=== PATIENT | female | born 1965 | race Caucasian/White ===

== ENCOUNTER 2019-11-15 09:12 | Outpatient (CLI) | payer MEDICARE, MEDICAID, SELFPAY | END 2019-11-15 09:13 | disposition home or self-care (01) | PROVIDERS: PCP Family Medicine; Visit Provider Internal Medicine Pulmonary Disease | DX: J45.991 Cough variant asthma (principal); J44.9 Chronic obstructive pulmonary disease, unspecified | CPT/HCPCS: 94060; 94726; 94729; 95012 ==

== ENCOUNTER 2019-12-06 13:47 | Outpatient (CLI) | payer MEDICARE, MEDICAID, SELFPAY ==
--- NOTE | ~2019-12-06 | XR_ITS ---
EXAMINATION: XR chest 2V DATE: 12/06/2019 14:09 INDICATION: Asthma with chronic restrictive pulmonary disease. TECHNIQUE: Frontal and lateral views of the chest were obtained. COMPARISON: Chest 2 views 09/07/2019, chest CT 08/13/2019 FINDINGS: Lung volumes are increased. There is a chronic diffuse interstitial pattern in the lungs. N o pleural effusion or pneumothorax. Cardiomegaly is noted. The central pulmonary arteries are enlarge d, consistent with pulmonary arterial hypertension. IMPRESSION: 1. Hyperexpanded lungs with chronic diffuse interstitial pattern, likely chronic lung disease. 2. Cardiomegaly. Reviewed, dictated and finalized at location A. OVEMENT AUDITOR IMPRESSION: 1. Hyperexpanded lungs with chronic diffuse interstitial pattern, likely chroni c lung disease. 2. Cardiomegaly.
[2019-12-06 14:13] LABS: Hemoglobin A1C 6.9 % (<5.7)
== END 2019-12-06 13:48 | disposition home or self-care (01) ==
LOC: CHSLAB 13:51
PROVIDERS: PCP Family Medicine; Visit Provider Family Medicine
DX: J44.9 Chronic obstructive pulmonary disease, unspecified (principal); E11.610 Type 2 diabetes mellitus with diabetic neuropathic arthropathy
CPT/HCPCS: 36415; 71046; 83036

== ENCOUNTER 2020-07-03 09:09 | Outpatient (CLI) | payer MEDICARE, MEDICAID, SELFPAY ==
--- NOTE | ~2020-07-03 | CT_ITS ---
EXAMINATION: CT chest wo con DATE: 07/03/2020 09:51 INDICATION: Pulmonary nodules and shortness of breath. TECHNIQUE: Computed tomography (CT) of the chest was performed without intravenous contrast. The dose -length product was 101.37 mGy-cm. Automated exposure control and iterative reconstruction technique were employed. COMPARISON: CT dated 08/13/2019 FINDINGS: No significant pleural or pericardial effusion. Cardiomegaly. There is atherosclerosis of t he aorta and coronary arteries. Mild mediastinal lymphadenopathy, likely reactive. Enlarged pulmonary arteries consistent with pulmonary arterial hypertension. There are patchy groundglass opacities thr oughout both lungs with mosaic configuration there are a few small 2 mm or smaller subpleural nodules . There is emphysema. IMPRESSION: 1. Chronic scattered groundglass opacities with mosaic attenuation pattern, considerations include sm all airways disease and/or chronic interstitial lung disease superimposed on emphysema. 2: Pulmonary arterial hypertension. 3: Small pulmonary nodules measuring 2 mm or less, likely benign. Reviewed, dictated and finalized at location A. IMPRESSION: 1. Chronic scattered groundglass opacities with mosaic attenuation pattern, con siderations include small airways disease and/or chronic interstitial lung dise ase superimposed on emphysema. 2: Pulmonary arterial hypertension. 3: Small pulmonary nodules measuring 2 mm or less, likely benign.
== END 2020-07-03 09:10 | disposition home or self-care (01) ==
LOC: CHSIMG 09:11
PROVIDERS: PCP Family Medicine; Visit Provider Internal Medicine Pulmonary Disease
DX: R91.8 Other nonspecific abnormal finding of lung field (principal)
CPT/HCPCS: 71250

== ENCOUNTER 2020-09-04 20:43 | Emergency (ER) | payer MEDICARE, MEDICAID, SELFPAY ==
--- NOTE | 2020-09-04 20:46 | ED.HEATRA ---
HPI - Head Injury General Chief complaint: Wound/Laceration Stated complaint: busted face Time Seen by Provider: 09/04/20 20:52 Source: patient Mode of arrival: ambulatory Limitations: no limitations History of Present Illness HPI Narrative: patient was walking up the stairs when she fell forward striking her lip on the stair. She has no other injuries. Her dentures broke. She complains only of pain in her lip. There is no loss of consciousness. Complaint: fall Onset (ago): hour(s) (1) Mechanism of Injury: fall Place: home Loss of Consciousness: no Location of injury: face Severity: mild Quality: dull Radiation: none Other Injuries: none Associated symptoms: denies other symptoms Related Data Home Medications Medication Instructions Recorded Confirmed albuterol sulfate 90 mcg/actuation 1 puff INHALATION Q4H PRN 09/23/19 06/14/20 aerosol inhaler aspirin 81 mg tablet,delayed 81 mg PO DAILY 09/23/19 06/14/20 release blood sugar diagnostic #10 each 09/23/19 06/14/20 blood sugar diagnostic #10 each 09/23/19 06/14/20 ipratropium bromide 0.02 % 2.5 ml INHALATION QID PRN 09/23/19 06/14/20 solution for inhalation tiotropium bromide 18 mcg capsule 1 cap INHALATION DAILY 09/23/19 06/14/20 with inhalation device Allergies Allergy/AdvReac Type Severity Reaction Status Date / Time No Known Allergies Allergy Verified 09/04/20 21:19 Review of Systems Review of Systems: All systems reviewed & are unremarkable except as noted in HPI and below PMFSH Past Medical History Medical History (Updated 09/04/20 @ 21:19 by Duke Piedra MD) Cigarette nicotine dependence COPD (chronic obstructive pulmonary disease) Eczema Hypertension associated with type 2 diabetes mellitus Nicotine dependence with current use Obesity Surgical History Surgical History History of tubal ligation 1986 Family History Family History Mother Breast cancer Father Diabetes mellitus Emphysema, unspecified Other Cerebrovascular accident Heart disease Social History Social History Smoking packs per day: 1 Smoking cigarettes per day: 20.0 Years smoked: 45 Smoking pack-years: 45.00 Smoking status: Current every day smoker Tobacco type: cigarettes Alcohol intake: never Substance use: never Substance use type: does not use Additional living arrangements comments: . 4 Children. 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 Gender identity (if verbalized by the patient): Female Exam Const: General: healthy appearing, no acute distress and alert Nutritional Appearance: well nourished Orientation/consciousness: patient oriented x3 HENMT: Mouth: Yes moist mucous membranes and Yes lip abnormal upper swelling and laceration ( On the inner aspect centrally.) Eyes: Conjunctivae: conjunctivae normal Pupils: Equal, round and reactive pupils present EOM: EOMs intact bilaterally Neck: Neck: normal visual inspection Resp: Effort & Inspection: normal respiratory effort Auscultation: rhonchi ( Scattered) throughout Cardio: Rate: regular rate Rhythm: regular rhythm Heart sounds: Murmur heart sound present (01/16) continuous GI: GI Palp: Yes Soft to palpation and No Tenderness to palpation present (GI) Auscultation: normal bowel sounds Back/Spine/Pelvis: Cervical Spine: cervical ROM normal Thoracic/Lumbar Spine: thoraco-lumbar ROM normal Neuro: General: patient oriented x3, moves all extremities and no focal motor deficits Cranial nerves: Yes CN's II-XII intact bilaterally Speech: normal speech Gait exam (Neuro): Normal gait present Extrem: General: normal to inspection and no clubbing, cyanosis or edema Psych: Appearance: grossly normal and well kempt Mental Status: mental status gr
[2020-09-04 20:58] VITALS: BP 118/68; PULSE 65; RESP 20; TEMP 36.8; O2SAT 95
[2020-09-04] MEDS: AMOXICILLIN 500 MG CAPSULE PO (21:27)
[2020-09-04 21:30] VITALS: PULSE 68; RESP 20; O2SAT 95
== END 2020-09-04 21:36 | disposition home or self-care (01) ==
PROVIDERS: Emergency Provider Emergency Medicine; PCP Family Medicine
DX: S01.511A Laceration without foreign body of lip, initial encounter (principal); W10.9XXA Fall (on) (from) unspecified stairs and steps, initial encounter; J44.9 Chronic obstructive pulmonary disease, unspecified; I10 Essential (primary) hypertension; E11.9 Type 2 diabetes mellitus without complications; F17.210 Nicotine dependence, cigarettes, uncomplicated; E66.9 Obesity, unspecified
CPT/HCPCS: 99283; A9270

== ENCOUNTER 2020-09-20 08:31 | Outpatient (CLI) | payer MEDICARE, SELFPAY ==
[2020-09-20 08:50] LABS: Hemoglobin A1C 6.5 % (<5.7)
== END 2020-09-20 08:32 | disposition home or self-care (01) ==
LOC: CHSLAB 08:35
PROVIDERS: PCP Family Medicine; Visit Provider Family Medicine
DX: E11.59 Type 2 diabetes mellitus with other circulatory complications (principal); I10 Essential (primary) hypertension
CPT/HCPCS: 36415; 83036

== ENCOUNTER 2021-03-27 13:51 | Outpatient (CLI) | payer MEDICARE, SELFPAY ==
[2021-03-27 14:04] LABS: Hemoglobin 14.3 g/dL (12.0-15.0); Mean Corpuscular HGB Conc 31.1 g/dL (32.0-36.0); Mean Corpuscular Hemoglobin 25.9 pg (27.0-31.0); Mean Corpuscular Volume 83.2 fL (78.0-102.0); Mean Platelet Volume 10.5 fl (9.2-11.8); Platelet Count Result 261 K/mm3 (150-420); Red Blood Count 5.53 M/mm3 (4.20-5.40); Red Cell Distribution Width 16.8 % (11.6-14.4); White Blood Count 11.3 K/mm3 (4.8-10.8)
[2021-03-27 14:15] LABS: Hemoglobin A1C 6.4 % (<5.7)
[2021-03-27 14:19] LABS: Creatinine Urine 171.22 mg/dL (40-278)
[2021-03-27 14:27] LABS: MALB Creatinine Ratio 233.6 mg/g (0-30); Microalbumin Urine Random > 400.0 mg/L
[2021-03-27 15:15] LABS: Alanine Aminotransferase 24 U/L (14-59); Albumin Level 3.6 g/dL (3.4-5.0); Alkaline Phosphatase 105 U/L (46-116); Anion Gap 8 mmol/L (8-16); Aspartate Amino Transferase 12 U/L (15-37); Bilirubin,Total 0.5 mg/dL (0.00-1.00); Blood Urea Nitrogen 21 mg/dL (7-18); Calcium 9.4 mg/dL (8.5-10.1); Carbon Dioxide 33 mmol/L (21-32); Chloride 103 mmol/L (98-108); Estimated Glomerular Filt Rate 58; Glucose 124 mg/dL (70-99); Osmolality Calculated 302 mOsm/kg (285-295); Potassium 3.6 mmol/L (3.5-5.1); Sodium 144 mmol/L (136-145); Total Protein 7.1 g/dL (6.4-8.2)
== END 2021-03-27 13:52 | disposition home or self-care (01) ==
LOC: CHSLAB 13:53
PROVIDERS: PCP Family Medicine; Visit Provider Family Medicine
DX: E11.9 Type 2 diabetes mellitus without complications (principal); I10 Essential (primary) hypertension
CPT/HCPCS: 36415; 80053; 82043; 83036; 85027

== ENCOUNTER 2021-07-26 09:12 | Outpatient (CLI) | payer MEDICARE, MEDICAID, SELFPAY ==
--- NOTE | 2021-07-26 09:24 | ECHO_ITS ---
Patient Info Name: Patty Orozco Age: 56 years : 1965 Gender: Female Ht: 62 in Wt: 152 lbs BSA: 1.76 m2 HR: 65 bpm BP: 133 / 73 mmHg Exam Date: 07/26/2021 10:13 AM Exam Location: [facility] Patient Status: Outpatient Admit Date: 07/26/2021 Staff Ordering Physician: Bj Mims MD Filemaker Developer: Senthil Nobles RDCS, RT Attending Provider: Bj Mims MD Referring Physician: Prasanna MEJIA; Exam Type: CA echo doppler color flow Study Info Indications R06.00 - Dyspnea, unspecified Complete two-dimensional, color flow and Doppler transthoracic echocardiogram is performed. Strain analysis performed. Summary 1. Complete two-dimensional, color flow and Doppler transthoracic echocardiogram is performed. 2. Left ventricular chamber dimension is normal. 3. Left ventricular systolic function is normal, estimated at 60-65%. 4. There is mildly increased left ventricular wall thickness. 5. D shape interventricular septum in both systole and diastole suggests both pressure and volume RV overload. 6. The left ventricular diastolic function is grade I diastolic dysfunction. 7. E/e' 15 is elevated. 8. Global longitudinal strain is normal at -19.6%. 9. Right ventricular systolic function is moderately reduced by visual estimation. However, TAPSE is normal at 2.9 cm. 10. Right ventricular chamber dimension is moderately enlarged. 11. Right atrial chamber dimension is moderately enlarged. 12. There is mild tricuspid valve regurgitation. 13. Severe pulmonary hypertension, estimated pulmonary arterial systolic pressure is 94 mmHg. 14. There is moderate to severe pulmonic regurgitation. 15. Dilated inferior vena cava with <50% collapse upon inspiration consistent with significantly elevated right atrial pressure, 15 mmHg. Left Ventricle E/e' 15 is elevated. Global longitudinal strain is normal at -19.6%. D shape interventricular septum in both systole and diastole suggests both pressure and volume RV overload. Left ventricular chamber dimension is normal. Left ventricular systolic function is normal, estimated at 60-65%. There is mildly increased left ventricular wall thickness. The left ventricular diastolic function is grade I diastolic dysfunction. Right Ventricle Right ventricular systolic function is moderately reduced by visual estimation. However, TAPSE is normal at 2.9 cm. Right ventricular chamber dimension is moderately enlarged. Left Atria Left atrial chamber dimension is normal. Right Atria Right atrial chamber dimension is moderately enlarged. Aortic Valve The aortic valve is trileaflet. There is no aortic valve stenosis. There is no aortic valve regurgitation. Pulmonic Valve There is moderate to severe pulmonic regurgitation. Mitral Valve There is no mitral valve stenosis. There is no mitral valve regurgitation. Tricuspid Valve There is mild tricuspid valve regurgitation. Severe pulmonary hypertension, estimated pulmonary arterial systolic pressure is 94 mmHg. Pericardium/Pleural There is no pericardial effusion. Inferior Vena Cava Dilated inferior vena cava with <50% collapse upon inspiration consistent with significantly elevated right atrial pressure, 15 mmHg. Aorta The aortic root size at the sinus of Valsalva is normal. Left Ventricular Outflow Tract Name Value Normal
== END 2021-07-26 09:13 | disposition home or self-care (01) ==
LOC: CHSIMG 09:15
PROVIDERS: PCP Family Medicine; Visit Provider Internal Medicine Pulmonary Disease
DX: R06.00 Dyspnea, unspecified (principal)
CPT/HCPCS: 93306

== ENCOUNTER 2021-07-27 08:55 | Outpatient (CLI) | payer MEDICARE, MEDICAID, SELFPAY ==
--- NOTE | 2021-07-31 07:22 | WPDPFTINT ---
PFT Interpretation DOS: 07/27/2021 REQUESTING: Dr Mims REASON FOR TESTING: COPD PULMONARY FUNCTION TESTS Results are reliable and reproducible. Spirometry: FEV1 is 42% predicted, 0.97 L. FVC is 49% predicted. The FEV1/FVC ratio is 84%. FEV1/slow vital capacity obtained in lung volumes is 71%. After bronchodilator, the FEV1 increased 11% and 100 mL, which does not meet ATS standard for a significant response. Lung volumes: TLC is 81%, low end of normal. RV is mildly increased 121% predicted. Slow vital capacity is 59%, which is higher than the forced vital capacity consistent with dynamic hyperinflation. Airway resistance is increased. Diffusion: DLCO severely decreased 36%. DLCO/VA corrects to 69%. Flow volume loop: Scooping of the expiratory limb. IMPRESSION: Severe obstructive ventilatory impairment, mild air trapping, and severe diffusion impairment. Lack of response to bronchodilator should not preclude use if clinically indicated. This pattern can be seen in emphysema. Bettye Xiao MD
--- NOTE | 2021-07-31 08:06 | WPDPFTINT ---
PFT Procedure Performed PFT Procedure Performed Spirometry with Pre/Post Bronchodilator Plethysmography (Lung Vol) Diffusing Cap (DLCO) Flow Vol Loop
== END 2021-07-27 08:56 | disposition home or self-care (01) ==
LOC: CHSCARD 09:02
PROVIDERS: PCP Family Medicine; Visit Provider Internal Medicine Pulmonary Disease
DX: J44.9 Chronic obstructive pulmonary disease, unspecified (principal)
CPT/HCPCS: 94060; 94726; 94729

== ENCOUNTER 2021-08-14 13:53 | Outpatient (CLI) | payer MEDICARE, SELFPAY ==
[2021-08-14 14:59] LABS: Hemoglobin A1C 6.4 % (<5.7)
== END 2021-08-14 13:54 | disposition home or self-care (01) ==
PROVIDERS: PCP Family Medicine; Visit Provider Family Medicine
DX: E11.59 Type 2 diabetes mellitus with other circulatory complications (principal); I10 Essential (primary) hypertension
CPT/HCPCS: 36415; 83036

== ENCOUNTER 2021-08-25 22:26 | Observation (INO) | payer MEDICARE, MEDICAID, SELFPAY ==
--- NOTE | ~2021-08-25 | CT_ITS ---
EXAMINATION: CT abdomen pelvis w con INDICATION: Abdominal pain TECHNIQUE: Computed tomographic images of the abdomen and pelvis were obtained after the administrati on of 100 cc of Omnipaque 350 intravenous contrast. The dose-length product (DLP) was 435.64 mGy-cm. Automated exposure control and iterative reconstruction technique were employed. COMPARISON: None available FINDINGS: Cardiomegaly is noted. There are patchy groundglass opacities of the visualized lung bases. Punctate calcifications in an otherwise normal spleen likely represent healed granulomatous disease. The liver, pancreas, gallbladder, and adrenal glands are normal. The right kidney is unremarkable. H ypoattenuating lesions of the left kidney measuring up to 2 mm are too small to characterize but like ly represents cysts. There is calcified atherosclerosis of the aorta and many of the other arteries. No pathologically enlarged abdominal or pelvic lymph nodes are identified. There is no free intraperi toneal gas or evidence of bowel obstruction. There is a large volume stool in the distal colon. There is questionable wall thickening of the sigmoid colon. A tiny fat-containing umbilical hernia is note d. IMPRESSION: 1. Possible wall thickening sigmoid colon which may be due to incomplete distention or less likely co litis. 2. Cardiomegaly. 3. Likely mild pulmonary edema of the visualized lung bases. Reviewed, dictated and finalized at location A. EAN GROWER IMPRESSION: 1. Possible wall thickening sigmoid colon which may be due to incomplete disten tion or less likely colitis. 2. Cardiomegaly. 3. Likely mild pulmonary edema of the visualized lung bases.
[2021-08-25 22:28] VITALS: BP 116/61; PULSE 60; RESP 19; TEMP 36.8; O2SAT 92
--- NOTE | 2021-08-25 22:40 | ECG_ITS ---
Measurements Intervals [place] Rate: 57 P: 42 MO: 196 QRS: 103 QRSD: 109 T: -64 QT: 451 QTc: 441 Interpretive Statements SINUS BRADYCARDIA LEFT ATRIAL ENLARGEMENT BORDERLINE R WAVE PROGRESSION, ANTERIOR LEADS ST-T WAVE ABNORMALITY IN ANTEROLAT/INF LEADS- CONSIDER ISCHEMIA BASELINE WANDER- AVR, AVL, V2-V6 ABNORMAL ECG Electronically Signed On 08-27-2021 8:54:57 BETTING AGENCY COUNTER CLERK by Parish Bird D.O.
[2021-08-25 23:00] VITALS: BP 126/68; PULSE 64; RESP 17; O2SAT 93
[2021-08-25] MEDS: ONDANSETRON INJ 4 MG/2 ML VIAL IV PUSH (23:15)
[2021-08-25] MEDS: SODIUM CHLORIDE 0.9% IV 1,000 ML 999 ML IV CONT (23:15)
[2021-08-25 23:26] LABS: Basophils Absolute Auto 0.05 K/mm3 (0.00-0.10); Basophils Percent Auto 0.4 % (0.0-1.0); Eosinophils Absolute Auto 0.23 K/mm3 (0.02-0.50); Eosinophils Percent Auto 1.7 % (1.0-6.0); Hematocrit 55.3 % (35.0-49.0); Hemoglobin 15.2 g/dL (12.0-15.0); Immature Granulocyte Absolute 0.08 K/mm3 (0.00-0.00); Immature Granulocyte Percent A 0.6 % (0.0-0.0); Lymphocytes Percent Auto 9.7 % (18.0-42.0); Mean Corpuscular HGB Conc 27.5 g/dL (32.0-36.0); Mean Corpuscular Hemoglobin 22.4 pg (27.0-31.0); Mean Corpuscular Volume 81.6 fL (78.0-102.0); Mean Platelet Volume 10.1 fl (9.2-11.8); Monocytes Absolute Auto 0.66 K/mm3 (0.10-0.90); Monocytes Percent Auto 4.9 % (2.0-11.0); Neutrophils Absolute Auto 11.1 K/mm3 (1.7-7.2); Neutrophils Percent Auto 82.7 % (50.0-70.0); Platelet Count Result 261 K/mm3 (150-420); Red Blood Count 6.78 M/mm3 (4.20-5.40); Red Cell Distribution Width 19.4 % (11.6-14.4); White Blood Count 13.4 K/mm3 (4.8-10.8)
[2021-08-25 23:39] LABS: Partial Thromboplastin Time 30.3 SEC (23.90-30.70); Prothrombin Time 11.1 Seconds (9.50-12.10)
[2021-08-25 23:42] LABS: Alanine Aminotransferase 14 U/L (14-59); Albumin Level 3.1 g/dL (3.4-5.0); Alkaline Phosphatase 112 U/L (46-116); Anion Gap 4 mmol/L (8-16); Aspartate Amino Transferase 11 U/L (15-37); Bilirubin,Total 0.6 mg/dL (0.00-1.00); Blood Urea Nitrogen 23 mg/dL (7-18); Calcium 9.1 mg/dL (8.5-10.1); Carbon Dioxide 41 mmol/L (21-32); Chloride 101 mmol/L (98-108); Estimated CRCL calculation 43 ml/min; Estimated Glomerular Filt Rate 48; Glucose 126 mg/dL (70-99); Lipase 142 U/L (73-393); Osmolality Calculated 307 mOsm/kg (285-295); Potassium 3.2 mmol/L (3.5-5.1); Sodium 146 mmol/L (136-145); Total Protein 7.1 g/dL (6.4-8.2); Troponin I 53.9 ng/L (0.00-60.4)
[2021-08-25 23:43] LABS: CRP 3.5 mg/dL (0.0-0.9)
[2021-08-25 23:45] LABS: Lactic Acid Reflex 2.3 mmol/L (0.4-2.0)
[2021-08-26] VITALS (7 sets, daily range): BP systolic 103–121; BP diastolic 56–68; PULSE 49–59; RESP 17–20; TEMP 36.6–37.6; O2SAT 91–97; BMI 27.7
[2021-08-26 00:55] LABS: Add Urine Microscopic? YES; Bilirubin Urine Negative (Negative); Blood Urine Negative (Negative); Color Urine Yellow (Yellow); Glucose Urine UA Negative (Negative); Ketones Urine Negative (Negative); Leukocyte Esterase Ur Negative (Negative); Nitrate Urine Negative (Negative); Protein Urine 1+ (Negative)
[2021-08-26 01:08] LABS: Appearance Urine Sl Cloudy (Clear); Bacteria Urine 1+ /hpf; Mucus Urine Moderate /lpf; RBC Urine None seen /hpf (0-2); Squamous Epithelial Cell Urine Many /hpf (Few); WBC Urine None seen /hpf (0-3)
[2021-08-26] MEDS: metroNIDAZOLE 500 MG/ISO 100ML 500 MG/100 ML BAG 100 MG IVPB (01:22)
--- NOTE | 2021-08-26 01:25 | ED.ABDPAIN ---
HPI - Abdominal Pain General Chief Complaint: Abdominal Pain Stated Complaint: stomache pain Source: patient and family Mode of arrival: ambulatory Limitations: no limitations History of Present Illness HPI narrative: this is a 56-year-old female that has a history of diverticulitis with history of COPD diabetes presents with 2 day history of abdominal pain with nausea that intensified overnight with pain rating of 10/10 and left lower quadrant and periumbilical area no flank pain no dysuria does have some nausea with episode of vomiting, complains of constipation with no blood in her stools. Currently there is no fever chills vitals are stable no chest pain no shortness of breath. MD elicited complaint: abdominal pain Pertinent past history: diverticulitis Onset (ago): day(s) Pain Consistency: constant Location: LLQ Severity: severe Pain scale (0-10): 10 Quality: aching Relieving factors: vomiting Related Data Home Medications Medication Instructions Recorded Confirmed aspirin 81 mg tablet,delayed 81 mg PO DAILY 09/23/19 08/25/21 release montelukast 10 mg PO DAILY 08/25/21 08/25/21 Allergies Allergy/AdvReac Type Severity Reaction Status Date / Time No Known Allergies Allergy Verified 08/25/21 23:27 Review of Systems Review of Systems: All systems reviewed & are unremarkable except as noted in HPI and below PMFSH Past Medical History Medical History Cigarette nicotine dependence COPD (chronic obstructive pulmonary disease) Dyspnea on effort Eczema Hypertension associated with type 2 diabetes mellitus Nicotine dependence with current use Obesity Surgical History Surgical History History of tubal ligation 1986 Family History Family History Mother Breast cancer Father Diabetes mellitus Emphysema, unspecified Other Cerebrovascular accident Heart disease Social History Social History Smoking packs per day: 1 Smoking cigarettes per day: 20.0 Years smoked: 45 Smoking pack-years: 45.00 Smoking status: Heavy tobacco smoker Tobacco type: cigarettes Alcohol intake: never Substance use: never Substance use type: does not use Additional living arrangements comments: . 4 Children. 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 Gender identity (if verbalized by the patient): Female Exam Const: General: no acute distress Orientation/consciousness: patient oriented x3 HENMT: Head: normal to inspection Eyes: Conjunctivae: conjunctivae normal Pupils: Equal, round and reactive pupils present EOM: EOMs intact bilaterally Direct Ophthalmoscopy: no photophobia Neck: Neck: normal visual inspection and no meningeal signs Chest: Chest palpation & inspection: normal inspection of the chest and abnormal inspection of the chest Resp: Effort & Inspection: normal respiratory effort Auscultation: diminished lung sounds Cardio: Rate: regular rate Rhythm: regular rhythm GI: GI Palp: Yes Soft to palpation and Yes Tenderness to palpation present (GI) ( Left lower quadrant tenderness) : General: Yes no CVA tenderness Urinary Catheter: Urinary Catheter: patent and draining Back/Spine/Pelvis: Back: no CVA tenderness Skin: General skin exam: normal color Rashes: no rashes Neuro: General: patient oriented x3 and moves all extremities Extrem: General: normal to inspection and no pedal edema Psych: Appearance: grossly normal Mental Status: mental status grossly normal Affect: normal affect Course Course Emergency Course: CT scan and labs reviewed with patient, patient received IV Cipro and IV Flagyl, her potassium is diminished at 3.2 and will admit patient and start K rider. Patient received mo
--- NOTE | 2021-08-26 01:32 | PC.NURSE ---
pt's oxygenation level drops below 92% when sleeping and drops below 90% when pt is off supplemental oxygen. md hodge notified
[2021-08-26 02:20] LABS: Reflex Lactic Acid Yes or No Add Lactic
--- NOTE | 2021-08-26 02:25 | PC.NURSE ---
pt admitted to room 226, IV saline locked, 3L NC, and transported via wheelchair.
[2021-08-26] MEDS: SODIUM CHLORIDE 0.9% IV 1,000 ML 100 ML IV CONT ×2 (02:30→11:30)
[2021-08-26] MEDS: CIPROFLOXACIN 400 MG/D5W 200ML 200 ML 200 MG IVPB (02:32)
--- NOTE | 2021-08-26 02:35 | ADMGEN ---
This patient, Patty Orozco, was admitted to 2nd Floor Room 226-2 for 23 hr Obs for diverticulitis. Patient/family oriented to hospital policies and general routines including ID bracelet, bed and alarms, visiting hours, pain management, procedures, bathroom and other care routines, personal items, smoking policy, room service/diet, and visiting hours. Information on how to activate the Rapid Response Team has been discussed. Patient/Family are encouraged to report perceived risks to care and to ask questions if they do not understand what they are told or what they should do. Pt ambulated from w/c to bed s any difficulties. Pt answers all questions appropriately and IV Cipro hung on arrival. POC discussed c pt. and pt verbalized understanding. Pt placed on 3L NC humidified O2 per order, pt states she wears O2 via NC at home when she needs it. VSS on arrival. Call michael placed in reach of pt. and pt. encouraged to call if needed.
[2021-08-26] MEDS: KCL 20 MEQ/SW 100 ML 100 ML 50 MEQ IVPB (03:40)
[2021-08-26 04:54] LABS: Lactic Acid 1.8 mmol/L (0.4-2.0)
--- NOTE | 2021-08-26 05:10 | PC.NURSE ---
Pt awake and wanting to use BR, Pt assisted up out of bed to use commode, walked to sink to wash hands and started having slurred speech and aphasia. Pt assisted back to bed, SPO2 at 80% on 3 L NC. ERP notified of change in pt. neuro status and Spo2 readings. Pt insistent that these are normal responses for her and an after affect from her previous CVA's . Pt reports that she has full awareness of her thoughts and that she isn't able to express her words and has seen neurologist for these issues. Pt placed on nonreb mask at 15L to increase her Spo2. After a few minutes pts. Spo2 increased to 93% and pt placed back on NC @3L. ERP Dr Tong in to evaluate pt., no new orders at this time since pt returned to baseline status.
--- NOTE | 2021-08-26 05:30 | PM.EVENT ---
Event Note Event Note Event Note: was called to the floor for an episode were patient with her bathroom and became hypoxic was put initially on a non-rebreather patient was disoriented O2 sats dropped into the 80s patient is a known COPD patient history of stroke x2 would have to assess the patient and patient is resting comfortably breathing easy and O2 sats 95% on 3L.
[2021-08-26] MEDS: BUDESONIDE/FORMOTEROL (*SP) 160-4.5 MCG 6 GM INH 2 PUFF INHALATION (06:12)
--- NOTE | 2021-08-26 06:33 | PC.NURSE ---
Pt sleeping at this time, RR even and nonlabored c NC O2 in place at 3L. No distress noted, IVF infusing and pts. call michael within reach.
[2021-08-26 08:36] LABS: Glucose Point of Care 100 mg/dl (65-105)
[2021-08-26 08:40] LABS: Basophils Absolute Auto 0.04 K/mm3 (0.00-0.10); Basophils Percent Auto 0.4 % (0.0-1.0); Eosinophils Absolute Auto 0.12 K/mm3 (0.02-0.50); Eosinophils Percent Auto 1.1 % (1.0-6.0); Hematocrit 49.6 % (35.0-49.0); Hemoglobin 13.5 g/dL (12.0-15.0); Immature Granulocyte Absolute 0.07 K/mm3 (0.00-0.00); Immature Granulocyte Percent A 0.7 % (0.0-0.0); Lymphocytes Absolute Auto 0.97 K/mm3 (1.10-4.50); Mean Corpuscular HGB Conc 27.2 g/dL (32.0-36.0); Mean Corpuscular Hemoglobin 23.2 pg (27.0-31.0); Mean Corpuscular Volume 85.4 fL (78.0-102.0); Mean Platelet Volume 10.1 fl (9.2-11.8); Monocytes Absolute Auto 0.54 K/mm3 (0.10-0.90); Neutrophils Percent Auto 83.8 % (50.0-70.0); Platelet Count Result 214 K/mm3 (150-420); Red Blood Count 5.81 M/mm3 (4.20-5.40); Red Cell Distribution Width 19.4 % (11.6-14.4); White Blood Count 10.7 K/mm3 (4.8-10.8)
[2021-08-26 08:56] LABS: Albumin Level 2.7 g/dL (3.4-5.0); Alkaline Phosphatase 99 U/L (46-116); Anion Gap 4 mmol/L (8-16); Aspartate Amino Transferase < 10 U/L (15-37); Bilirubin,Total 0.4 mg/dL (0.00-1.00); Blood Urea Nitrogen 19 mg/dL (7-18); CRP 4.6 mg/dL (0.0-0.9); Calcium 8.1 mg/dL (8.5-10.1); Carbon Dioxide 36 mmol/L (21-32); Chloride 105 mmol/L (98-108); Estimated CRCL calculation 47 ml/min; Estimated Glomerular Filt Rate 54; Glucose 100 mg/dL (70-99); Osmolality Calculated 302 mOsm/kg (285-295); Potassium 3.9 mmol/L (3.5-5.1); Sodium 145 mmol/L (136-145); Total Protein 6.2 g/dL (6.4-8.2)
[2021-08-26 09:01] LABS: Lactic Acid Reflex 1.6 mmol/L (0.4-2.0)
[2021-08-26 09:08] LABS: Alanine Aminotransferase 9 U/L (14-59)
[2021-08-26] MEDS: CHLORTHALIDONE 25 MG TABLET PO (09:33)
[2021-08-26] MEDS: lisinopriL 20 MG TABLET 40 MG PO (09:33)
[2021-08-26] MEDS: metFORMIN HCL 500 MG TABLET 1000 MG PO (09:34)
[2021-08-26] MEDS: ASPIRIN 81 MG ENTERIC TABLET PO (09:34)
[2021-08-26] MEDS: FUROSEMIDE 20 MG TABLET PO (09:34)
[2021-08-26] MEDS: GABAPENTIN 300 MG CAPSULE BY MOUTH ×2 (09:34→13:16)
[2021-08-26] MEDS: MONTELUKAST SODIUM 10 MG TABLET PO (09:34)
[2021-08-26] MEDS: POTASSIUM CHLORIDE 20 MEQ TABLET PO (09:34)
[2021-08-26] MEDS: DIGOXIN TAB 125 MCG TABLET BY MOUTH (09:35)
[2021-08-26] MEDS: amLODIPine BESYLATE 2.5 MG TABLET PO (09:36)
[2021-08-26] MEDS: CLOPIDOGREL BISULFATE 75 MG TABLET PO (09:37)
[2021-08-26 12:08] LABS: Glucose Point of Care 89 mg/dl (65-105)
--- NOTE | 2021-08-26 13:41 | PM.SD2 ---
Same Day Admit/Disch: HPI History of Present Illness Chief complaint: stomache pain Narrative: Patty Orozco is a 56 year old female who is admitted under Observation for Abdominal Pain. Pt has a history of Diverticulitis and she states this feels like the same thing. Symptoms started about 2 days ago with the pain in the LLQ without bloody stools that was a 10/10 pain and when she was evaluated this AM she was 6/10 and has improved since to the point she was able to eat lunch without abdominal pain or N/V. Pt denies CP, SOB, musculoskeletal issues except occasional hand twitching that has been present since her CVA in 2019. 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 [facility] Past Medical History Medical History Cigarette nicotine dependence COPD (chronic obstructive pulmonary disease) Dyspnea on effort Eczema Hypertension associated with type 2 diabetes mellitus Nicotine dependence with current use Obesity Surgical History Surgical History History of tubal ligation 1986 Family History Family History Mother Breast cancer Father Diabetes mellitus Emphysema, unspecified Other Cerebrovascular accident Heart disease Social History Social History Smoking packs per day: 1 Smoking cigarettes per day: 20.0 Years smoked: 45 Smoking pack-years: 45.00 Smoking status: Current every day smoker Tobacco type: cigarettes Second hand tobacco smoke exposure: Yes Alcohol intake: never Substance use: never Substance use type: does not use Additional living arrangements comments: . 4 Children. 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 [employer] Gender identity (if verbalized by the patient): Female Spiritual care concerns: No Same Day Admit/Disch: Med Pre-admit Medications Home Medications Medication Instructions Recorded Confirmed Type aspirin 81 mg tablet,delayed 81 mg PO DAILY 09/23/19 08/25/21 History release blood sugar diagnostic #100 each 09/23/19 08/25/21 Rx clopidogrel 75 mg tablet 75 mg PO DAILY #90 tablet 03/14/21 08/25/21 Rx lisinopril 40 mg tablet 40 mg PO DAILY #135 tablet 03/26/21 08/25/21 Rx potassium chloride 20 mEq 20 meq PO DAILY #30 tablet 03/28/21 08/25/21 Rx tablet,extended release digoxin 125 mcg (0.125 mg) tablet See Rx Instructions .ROUTE 04/02/21 08/25/21 Rx .COMPLEX #90 tablet budesonide-formoterol HFA 160 2 puff INHALATION Q12H #10.2 g 05/02/21 08/25/21 Rx mcg-4.5 mcg/actuation aerosol inhaler chlorthalidone 25 mg tablet 25 mg PO DAILY #90 tablet 05/23/21 08/25/21 Rx lovastatin 40 mg tablet 40 mg PO DAILY #90 tablet 06/08/21 08/25/21 Rx gabapentin 300 mg capsule See Rx Instructions .ROUTE 06/19/21 08/25/21 Rx .COMPLEX #120 cap metformin 1,000 mg tablet 1,000 mg PO BID #180 tablet 07/04/21 08/25/21 Rx ipratropium 0.5 mg-albuterol 3 mg 3 ml INHALATION QID PRN #180 ml 07/23/21 08/25/21 Rx (2.5 mg base)/3 mL nebulization soln triamcinolone acetonide 0.1 % 1 applic TOPICAL BID #30 gm 07/26/21 08/25/21 Rx topical cream amlodipine 2.5 mg tablet 2.5 mg PO DAILY #30 tablet 08/15/21 08/25/21 Rx furosemide 20 mg tablet 20 mg PO QAM #30 tablet 08/15/21 08/25/21 Rx montelukast 10 mg PO DAILY 08/25/21 08/25/21 History Saccharomyces boulardii [Florastor] 250 mg PO BID #20 cap 08/26/21 Rx ciprofloxacin HCl 500 mg PO Q12H 10 Days #20 tablet 08/26/21 Rx metronidazole 500 mg PO Q8H 10 Days #30 tablet 08/26/21 Rx Exam Const: General: cooperative, comfortable, no acute distress, well developed, alert, awake, Physically active and tired appearing Nutritional Appearance: average body habitus Resp: Effort & Inspection: normal respiratory effort Auscultation: rales (posterior bases, m
--- NOTE | 2021-08-26 15:15 | PC.NURSE ---
Discharge instructions reviewed with patient, she verbalizes understanding. SN encouraged patient to continue wearing O2 at all times. Patient taken off floor by wheelchair with O2 at 4L per nasal cannula. Patient's daughter picking her up at main door.
--- NOTE | 2021-08-29 09:49 | PC.NURSE ---
Pt states she received and understood her discharge instructions. Pt also states her care was all good .
== END 2021-08-26 15:15 | disposition home or self-care (01) ==
LOC: CHSED 08-26 01:29 → CHS2ND 08-26 14:11
PROVIDERS: Admitting Provider Emergency Medicine; Emergency Provider Emergency Medicine; PCP Family Medicine; Visit Provider Emergency Medicine
DX: K57.92 Diverticulitis of intestine, part unspecified, without perforation or abscess without bleeding (principal); I10 Essential (primary) hypertension; J44.9 Chronic obstructive pulmonary disease, unspecified; E11.9 Type 2 diabetes mellitus without complications; F17.210 Nicotine dependence, cigarettes, uncomplicated; K57.30 Diverticulosis of large intestine without perforation or abscess without bleeding
CPT/HCPCS: 36415; 74177; 80053; 81001; 82948; 83605; 83690; 84484; 85025; 85610; 85730; 86140; 93005; 96361; 96365; 96366; 96367; 96375; 99285; A9270; G0378; J0744; J2405; J3480; J7030; Q9967

== ENCOUNTER 2022-07-30 12:13 | Outpatient (CLI) | payer MEDICARE, SELFPAY ==
[2022-07-30 12:28] LABS: Hemoglobin 16.7 g/dL (12.0-15.0); Mean Corpuscular HGB Conc 30.9 g/dL (32.0-36.0); Mean Corpuscular Volume 87.2 fL (78.0-102.0); Mean Platelet Volume 11.1 fl (9.2-11.8); Platelet Count Result 229 K/mm3 (150-420); Red Blood Count 6.19 M/mm3 (4.20-5.40); Red Cell Distribution Width 15.4 % (11.6-14.4); White Blood Count 10.9 K/mm3 (4.8-10.8)
[2022-07-30 12:38] LABS: Hemoglobin A1C 6.3 % (<5.7)
[2022-07-30 13:07] LABS: Alanine Aminotransferase 17 U/L (14-59); Alkaline Phosphatase 128 U/L (46-116); Anion Gap 10 mmol/L (8-16); Aspartate Amino Transferase 11 U/L (15-37); Bilirubin,Total 0.7 mg/dL (0.00-1.00); Blood Urea Nitrogen 16 mg/dL (7-18); Calcium 9.2 mg/dL (8.5-10.1); Carbon Dioxide 31 mmol/L (21-32); Chloride 102 mmol/L (98-108); Cholesterol 172 mg/dL (0-200); Estimated Glomerular Filt Rate 53; Glucose 85 mg/dL (70-99); HDL Direct 37 mg/dL (40-60); LDL Cholesterol Calculated 95 mg/dL (<130); Osmolality Calculated 296 mOsm/kg (285-295); Potassium 4.3 mmol/L (3.5-5.1); Sodium 143 mmol/L (136-145); Total Protein 7.5 g/dL (6.4-8.2); Triglycerides 200 mg/dL (0-150)
== END 2022-07-30 12:14 | disposition home or self-care (01) ==
LOC: CHSLAB 12:16
PROVIDERS: PCP Family Medicine; Visit Provider Family Medicine
DX: J96.11 Chronic respiratory failure with hypoxia (principal); E11.9 Type 2 diabetes mellitus without complications
CPT/HCPCS: 36415; 80053; 80061; 83036; 85027

== ENCOUNTER 2022-10-19 19:46 | Emergency (ER) | payer MEDICARE, MEDICAID, SELFPAY ==
[2022-10-19 19:54] VITALS: BP 134/84; PULSE 111; RESP 22; TEMP 36.9; O2SAT 88
--- NOTE | 2022-10-19 20:06 | ED.SOB ---
HPI - SOB/Dyspnea General Chief Complaint: Upper Respiratory Infection Stated Complaint: trouble breathing Time Seen by Provider: 10/19/22 19:49 Source: patient and RN notes reviewed Mode of arrival: ambulatory Limitations: no limitations History of Present Illness HPI Narrative: Patient has a history of chronic COPD with frequent exacerbations. She says she feels like she has just been getting progressively worse with the up and down weather changes. She says that steroids and Levaquin seemed to work best for her. She says that she has just been wheezing more her cough is unchanged she has no fever, nausea vomiting, headache or sore throat. MD elicited complaint: shortness of breath Pertinent past history: COPD Onset (ago): day(s) (3) Timing: progressively worsening Severity: moderate Exacerbating factors: exertion Relieving factors: nothing Known history of: COPD Associated symptoms: wheezing Treatment prior to arrival: none Related Data Home oxygen amount: 3 liters Home Medications Medication Instructions Recorded Confirmed ipratropium bromide 18 1 puff inhalation BID 03/19/22 10/19/22 mcg/actuation aerosol inhaler Allergies Allergy/AdvReac Type Severity Reaction Status Date / Time No Known Allergies Allergy Verified 07/29/22 07:20 Review of Systems Review of Systems: All systems reviewed & are unremarkable except as noted in HPI and below PMFSH Past Medical History Medical History COPD (chronic obstructive pulmonary disease) Eczema Hypertension associated with type 2 diabetes mellitus Surgical History Surgical History History of tubal ligation 1986 Family History Family History Mother Breast cancer Father Diabetes mellitus Emphysema, unspecified Other Cerebrovascular accident Heart disease Social History Social History Smoking packs per day: 1 Smoking cigarettes per day: 20.0 Years smoked: 45 Smoking pack-years: 45.00 Smoking status: Current every day smoker Tobacco type: cigarettes Second hand tobacco smoke exposure: Yes Alcohol intake: never Substance use: never Substance use type: does not use Additional living arrangements comments: . 4 Children. Additional occupation/education comments: Prior Occupation: [employer] Gender identity (if verbalized by the patient): Female Spiritual care concerns: No Exam Const: General: no acute distress, alert and ill appearing chronically Nutritional Appearance: well nourished Orientation/consciousness: patient oriented x3 Limitations: no limitations HENMT: Head: normal to inspection Ears: external ears normal Eyes: Conjunctivae: conjunctivae normal Pupils: Equal, round and reactive pupils present EOM: EOMs intact bilaterally Neck: Neck: normal visual inspection Resp: Effort & Inspection: tachypneic ( mild) Auscultation: rhonchi throughout ( SCATTERED) and wheezes scattered wheezes, anterior and posterior Cardio: Rate: regular rate Rhythm: regular rhythm GI: GI Palp: Yes Soft to palpation and No Tenderness to palpation present (GI) Auscultation: normal bowel sounds Back/Spine/Pelvis: Cervical Spine: cervical ROM normal Thoracic/Lumbar Spine: thoraco-lumbar ROM normal Skin: General skin exam: normal color Rashes: no rashes Neuro: General: patient oriented x3, moves all extremities, no focal motor deficits and CN's II-XI intact bilaterally Speech: normal speech Gait exam (Neuro): Normal gait present Extrem: General: normal to inspection and no clubbing, cyanosis or edema Psych: Mental Status: mental status grossly normal Affect: normal affect Attitude: cooperative Course Vital Signs Vital signs: Vital Signs Temperature 36.9 C 10/19/22 19:54 Pul
[2022-10-19] MEDS: levoFLOXacin 500 MG TABLET PO (20:18)
[2022-10-19] MEDS: methylPREDNISolone SOD SUCC 125 MG VIAL IM (20:18)
[2022-10-19 20:23] VITALS: BP 139/89; PULSE 99; RESP 20; TEMP 36.8; O2SAT 88
== END 2022-10-19 20:35 | disposition home or self-care (01) ==
PROVIDERS: Emergency Provider Emergency Medicine; PCP Family Medicine
DX: J44.9 Chronic obstructive pulmonary disease, unspecified (principal); I10 Essential (primary) hypertension; E11.9 Type 2 diabetes mellitus without complications; F17.210 Nicotine dependence, cigarettes, uncomplicated; Z79.51 Long term (current) use of inhaled steroids; Z79.02 Long term (current) use of antithrombotics/antiplatelets; Z79.84 Long term (current) use of oral hypoglycemic drugs
CPT/HCPCS: 96372; 99283; A9270; J2930

== ENCOUNTER 2022-10-28 14:04 | Emergency (ER) | payer MEDICARE, MEDICAID, SELFPAY ==
--- NOTE | ~2022-10-28 | XR_ITS ---
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 RESULT: Lines, tubes, and devices: None. Lungs and pleura: Diffuse reticular opacities.. Cardiomediastinal silhouette: Increased marked dilation of the central pulmonary arteries. Increased , somewhat nodular appearing bilateral hilar opacities may reflect vessels seen en face versus enlarg ed lymph nodes. Other: No acute osseous or upper abdominal finding. IMPRESSION: No acute cardiopulmonary process. No acute osseous finding in the left ribs. Chronic reticular opacit ies may reflect small airways disease, interstitial lung disease, or interstitial edema. Severely dil ated pulmonary arteries. Possible mediastinal lymphadenopathy. Reviewed, dictated and finalized at location K. ES REGISTRATION SPECIALIST IMPRESSION: No acute cardiopulmonary process. No acute osseous finding in the left ribs. Ch ronic reticular opacities may reflect small airways disease, interstitial lung disease, or interstitial edema. Severely dilated pulmonary arteries. Possible m ediastinal lymphadenopathy.
[2022-10-28 14:21] VITALS: BP 144/82; PULSE 73; RESP 20; TEMP 36.1; O2SAT 88
--- NOTE | 2022-10-28 14:39 | ED.GENADULT ---
HPI - General Adult General Chief complaint: Unspecified Stated complaint: right side pain Time Seen by Provider: 10/28/22 14:39 History of Present Illness HPI narrative: The patient is a 57-year-old woman with history of COPD, on 3 L oxygen at all times, still smokes but down to 4 cigarettes per day. Comorbidities include hypertension, diabetes, pulmonary hypertension. She recently had a COPD exacerbation and is currently on Levaquin and prednisone, day 3/5. She was reaching into her washing machine 2 days ago with her left arm. She extended and then felt a sudden pop in the left anterior mid rib area laterally, with tenderness to the rib cage in that area. The pain has been ongoing for 2 days. It is worse with movement, coughing, deep breathing, or any other maneuvers. No substernal chest discomfort or pressure sensation. No dyspnea out of the ordinary on oxygen. Does have a chronic cough which is unchanged compared to baseline. No abdominal pain. No nausea vomiting. No fevers or chills or diaphoresis. No other complaints. Related Data Home Medications Medication Instructions Recorded Confirmed ipratropium bromide 18 1 puff inhalation BID 03/19/22 10/28/22 mcg/actuation aerosol inhaler Allergies Allergy/AdvReac Type Severity Reaction Status Date / Time No Known Allergies Allergy Verified 10/28/22 14:26 Review of Systems Review of Systems: All systems reviewed & are unremarkable except as noted in HPI and below Constitutional: Constitutional: Reports no additional constitutional complaints, Denies anorexia, Denies body ache(s), Denies chills, Denies excessive sweating, Denies fatigue, Denies fever(s), Denies frequent falls, Denies headache(s), Denies malaise and Denies poor appetite Eyes: Eyes: Reports no additional eye complaints, Denies blurry vision, Denies change in vision, Denies irritation, Denies itchy eyes and Denies photophobia ENT: Reports system reviewed and no additional complaints, except as documented, Reports Normal hearing present, Denies change in voice, Denies dysphagia, Denies vertigo, Denies dizziness, Denies ear discharge, Denies headache(s), Denies hearing loss, Denies hoarseness, Denies nasal congestion, Denies neck pain, Denies sinus pressure, Denies sore throat and Denies throat swelling Cardiovascular: Cardiovascular: Reports no additional cardiovascular complaints, Reports chest pain ( chest wall pain), Denies syncope, Denies rapid heart rate, Denies irregular heart rhythm, Denies leg edema, Denies dyspnea and Denies slow heart rate Respiratory: Respiratory: Reports no additional respiratory complaints, Reports cough ( Chronic), Reports dyspnea ( worse when off oxygen), Denies stridor and Reports wheezing ( chronic, no worse than usual) Gastrointestinal: Gastrointestinal: Reports no additional gastrointestinal complaints, Denies abdominal pain, Denies melena, Denies hematochezia, Denies dysphagia, Denies diarrhea, Denies nausea and Denies vomiting Genitourinary: Genitourinary: Denies hematuria, Denies urinary frequency, Denies dysuria, Denies flank pain and Denies urinary urgency Musculoskeletal: Musculoskeletal: Reports no additional musculoskeletal complaints, Denies abnormal gait, Denies back pain, Denies myalgias, Denies arthralgias, Denies joint swelling, Denies limited range of motion, Denies muscle cramps, Denies muscle weakness, Denies neck pain and Denies numbness Integumentary/Breasts: Skin/Breast: Reports system reviewed and no additional complaints, except as docu, Denies breast pain, Denies change in pigmentation, Denies pruritus, Denies erythema and Denies wounds Neurologic: Reports system reviewed and no additional complaints, except as documented, Reports Normal hearing present, Denies Abnormal speech present, Denies abnormal gait, Denies confusion, Denies vertigo, Denies dizziness, Denies syncope, Denies frequent falls, Denies headache(s), Denies focal weakness, Denies numb
[2022-10-28] MEDS: ACETAMINOPHEN 325 MG TABLET 975 MG PO (15:25)
[2022-10-28] MEDS: IBUPROFEN 600 MG TABLET PO (15:26)
[2022-10-28] MEDS: CYCLOBENZAPRINE HCL 10 MG TABLET PO (16:00)
[2022-10-28 16:04] VITALS: BP 142/74; PULSE 73; RESP 16; TEMP 36.8; O2SAT 91
== END 2022-10-28 16:05 | disposition home or self-care (01) ==
PROVIDERS: Emergency Provider Emergency Medicine; PCP Family Medicine
DX: R07.89 Other chest pain (principal); J44.9 Chronic obstructive pulmonary disease, unspecified; I10 Essential (primary) hypertension; E11.9 Type 2 diabetes mellitus without complications; F17.210 Nicotine dependence, cigarettes, uncomplicated; Z99.81 Dependence on supplemental oxygen
CPT/HCPCS: 71101; 99283; A9270

== ENCOUNTER 2023-01-28 09:31 | Outpatient (NON) | payer MEDICARE, SELFPAY | END 2023-01-28 09:32 | disposition home or self-care (01) | LOC: CHSLAB 09:34 | PROVIDERS: Visit Provider Family Medicine | DX: L82.1 Other seborrheic keratosis (principal) | CPT/HCPCS: 88305 ==

== ENCOUNTER 2023-09-01 13:26 | Outpatient (CLI) | payer MEDICARE, MEDICAID, SELFPAY ==
[2023-09-01 14:14] LABS: Influenza A QL RT-PCR Negative (Negative); Influenza B QL RT-PCR Negative (Negative); SARS-CoV-2 RNA PCR Negative (Negative)
== END 2023-09-01 13:27 | disposition home or self-care (01) ==
PROVIDERS: PCP Family Medicine; Visit Provider Family Medicine
DX: R05.9 Cough, unspecified (principal); J44.1 Chronic obstructive pulmonary disease with (acute) exacerbation
CPT/HCPCS: 87636

== ENCOUNTER 2024-08-26 10:35 | Outpatient (CLI) | payer MEDICARE, MEDICAID, SELFPAY ==
[2024-08-26 10:48] LABS: Basophils Absolute Auto 0.04 K/mm3 (0.00-0.10); Basophils Percent Auto 0.4 % (0.0-1.0); Eosinophils Absolute Auto 0.08 K/mm3 (0.02-0.50); Eosinophils Percent Auto 0.7 % (1.0-6.0); Hematocrit 52.9 % (35.0-49.0); Hemoglobin 16.7 g/dL (12.0-15.0); Immature Granulocyte Absolute 0.04 K/mm3 (0.00-0.00); Immature Granulocyte Percent A 0.4 % (0.0-0.0); Lymphocytes Absolute Auto 1.23 K/mm3 (1.10-4.50); Lymphocytes Percent Auto 11.4 % (18.0-42.0); Mean Corpuscular HGB Conc 31.6 g/dL (32-36); Mean Corpuscular Hemoglobin 29.1 pg (27.0-31.0); Mean Corpuscular Volume 92.3 fL (78.0-102.0); Mean Platelet Volume 10.9 fl (9.2-11.8); Monocytes Absolute Auto 0.59 K/mm3 (0.10-0.90); Monocytes Percent Auto 5.5 % (2.0-11.0); Neutrophils Absolute Auto 8.82 K/mm3 (1.70-7.20); Neutrophils Percent Auto 81.6 % (50.0-70.0); Platelet Count Result 208 K/mm3 (150-420); Red Blood Count 5.73 M/mm3 (4.20-5.40); Red Cell Distribution Width 15.4 % (11.6-14.4); White Blood Count 10.8 K/mm3 (4.8-10.8)
[2024-08-26 11:27] LABS: Creatinine Urine 102.84 mg/dL (40-278)
[2024-08-26 11:28] LABS: MALB Creatinine Ratio 388.9 mg/g (0-30); Microalbumin Urine Random > 400.0 mg/L
[2024-08-26 11:59] LABS: Alanine Aminotransferase 27 U/L (14-59); Albumin Level 3.6 g/dL (3.4-5.0); Alkaline Phosphatase 142 U/L (46-116); Anion Gap 9 mmol/L (4-12); Aspartate Amino Transferase 20 U/L (15-37); Bilirubin,Total 0.7 mg/dL (0.00-1.00); Blood Urea Nitrogen 22 mg/dL (7-18); Calcium 9.3 mg/dL (8.5-10.1); Carbon Dioxide 33 mmol/L (21-32); Chloride 103 mmol/L (98-108); Cholesterol 166 mg/dL (0-200); Estimated Glomerular Filt Rate 51; Glucose 100 mg/dL (70-99); HDL Direct 39 mg/dL (40-60); LDL Cholesterol Calculated 98 mg/dL (<130); Osmolality Calculated 303 mOsm/kg (285-295); Potassium 4.1 mmol/L (3.5-5.1); Sodium 145 mmol/L (136-145); Total Protein 7.2 g/dL (6.4-8.2); Triglycerides 146 mg/dL (0-150)
== END 2024-08-26 10:36 | disposition home or self-care (01) ==
LOC: CHSLAB 10:37
PROVIDERS: PCP Family Medicine; Visit Provider Family Medicine
DX: E11.610 Type 2 diabetes mellitus with diabetic neuropathic arthropathy (principal); I10 Essential (primary) hypertension; E11.59 Type 2 diabetes mellitus with other circulatory complications
CPT/HCPCS: 36415; 80053; 80061; 82043; 85025

== ENCOUNTER 2024-08-30 09:12 | Emergency (ER) | payer MEDICARE, MEDICAID, SELFPAY ==
--- NOTE | ~2024-08-30 | XR_ITS ---
EXAMINATION: XR knee LT min 4V DATE: 08/30/2024 09:31 INDICATION: Lateral patellar pain and bruising TECHNIQUE: Anteroposterior, oblique, sunrise and crosstable lateral views of the left knee were obtai zulema COMPARISON: None. FINDINGS: Alignment is normal. No fracture. Joint spaces appear normal on nonweightbearing imaging. No joint e ffusion/layering lipohemarthrosis. Soft tissues are unremarkable. IMPRESSION: 1. Negative left knee radiographs. Reviewed, dictated and finalized at location B. 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
[2024-08-30 09:15] VITALS: BP 185/78; PULSE 64; RESP 20; TEMP 36.6; O2SAT 90
--- NOTE | 2024-08-30 09:26 | ED_ITS ---
HPI - Extremity Injury (Lower) General Chief Complaint: Extremity Injury, Lower Stated Complaint: left knee pain Time Seen by Provider: 08/30/24 09:26 Source: patient Mode of arrival: ambulatory Limitations: no limitations History of Present Illness HPI Narrative: 59 YEARS OLD WHITE FEMALE GOING DOWN STEPS, MISSED THE LAST 1 LANDED ON THE LEFT FOOT CAUSING SEVERE PAIN AT THE LEFT KNEE MAINLY IF SHE TRIED TO BEEN IT . PRIOR TO ARRIVAL PATIENT DENIES OTHER INJURIES Related Data Home Medications Medication Instructions Recorded Confirmed ipratropium bromide 18 1 puff inhalation BID 03/19/22 06/28/24 mcg/actuation aerosol inhaler Allergies Allergy/AdvReac Type Severity Reaction Status Date / Time No Known Allergies Allergy Verified 08/30/24 09:16 Review of Systems Review of Systems: All systems reviewed & are unremarkable except as noted in HPI and below PMFSH Past Medical History Medical History COPD (chronic obstructive pulmonary disease) Eczema Hypertension associated with type 2 diabetes mellitus Surgical History Surgical History History of tubal ligation 1986 Family History Family History Mother Breast cancer Father Diabetes mellitus Emphysema, unspecified Other Cerebrovascular accident Heart disease Social History Social History Smoking packs per day: 1 Smoking cigarettes per day: 20.0 Years smoked: 45 Smoking pack-years: 45.00 Smoking status: Current every day smoker Tobacco type: cigarettes Second hand tobacco smoke exposure: Yes Alcohol intake: never Substance use: never Substance use type: does not use Living arrangements: alone Additional living arrangements comments: . 4 Children. Occupation/Education: retired Additional occupation/education comments: Prior Occupation: [employer] Gender identity (if verbalized by the patient): Female Spiritual care concerns: No Exam Narrative: GENERAL APPEARANCE: WELL-DEVELOPED, WELL-NOURISHED SKIN: NORMAL COLOR HEAD: NORMOCEPHALIC, NONTRAUMATIC NECK: SUPPLE, NONTENDER CHEST AND RESPIRATORY: AIRWAY PATENT, NO RESPIRATORY DISTRESS, NO ACCESSORY MUSCLE USE HEART: REGULAR RATE/RHYTHM VASCULAR: NORMAL PERIPHERAL PULSES, NORMAL CAPILLARY REFILL. MUSCULOSKELETAL: LEFT KNEE EXAM SHOWED NO SWELLING, NO LOCALIZED TENDERNESS, NO DEFORMITY, NO BRUISES, SEVERE LIMITED RANGE OF MOTION. NEUROLOGIC: ALERT AND ORIENTED ?3, Course Vital Signs Vital signs: Vital Signs Temperature 36.6 C 08/30/24 09:15 Pulse Rate 64 08/30/24 09:15 Respiratory Rate 20 08/30/24 09:15 Blood Pressure 185/78 H 08/30/24 09:15 Pulse Oximetry 90 08/30/24 09:15 Oxygen Delivery Room Air 08/30/24 09:15 Temperature 36.6 C 08/30/24 09:15 Pulse Rate 64 08/30/24 09:15 Respiratory Rate 20 08/30/24 09:15 Blood Pressure 185/78 H 08/30/24 09:15 Pulse Oximetry 90 08/30/24 09:15 Oxygen Delivery Room Air 08/30/24 09:15 MDM - Extremity Injury (Lower) MDM Narrative Medical decision making narrative: PATIENT MISSED LAST STEP GOING DOWN STAIRS, COMPLAINING OF LEFT KNEE PAIN VITAL SIGNS SHOWING BLOOD PRESSURE 185/78 PHYSICAL EXAMINATION SHOWING SEVERE PAIN WHEN SHE TRIED TO BEND LEFT KNEE. OTHERWISE NO OBVIOUS SIGN OF TRAUMA DIFFERENTIAL DIAGNOSIS INCLUDE TIBIAL PLATEAU FRACTURE, SPRAIN/ STRAIN X-RAY OF THE LEFT KNEE SHOWED Differential Diagnosis Differential diagnosis: Likely other ( ABOVE) Imaging Data Radiologist's impression: Impressions Knee X-Ray 08/30/24 09:36 IMPRESSION: 1. Negative left knee radiographs. Critical Care Time Critical Care Time Critical Care Time: No Discharge Plan Discharge Clinical Impression: Left knee sprain Patient Disposition: Home, Self-Care Condition: Stable Additional Instructions: RETURN IF SYMPTOMS ARE WORSENING , CALL YOUR FAMILY PHYSICIAN FOR APPOINTMENT, TAKE TYLENOL 650 EVERY 6 HOUR AND OR IBUPROFEN 600 MG EVERY 6 HOUR NEEDED FOR ACHES AND PAIN, CONTINUE HOME MEDICATIONS. Prescriptions: No Action (DME) Contour Next Test Strips Strip See Rx Instructions .ROUTE .MEDSUPPLY Qty: 100 2RF Rx Instructions: As directed. Testing once daily. ipratropium bromide 18 mcg/actuation aerosol 1 puff inhalation BID albuterol sulfate [Ventolin HFA] 90 mcg/actuation HFA aerosol inhaler See Rx Instructions .ROUTE .COMPLEX Qty: 18 3RF Dose Instruction: 1 PUFF INHALATION EVERY 4 HOURS NEEDED FOR SHORTNESS OF BREATH OR WHEEZIN G Rx Instructions: 1 PUFF INHALATION EVERY 4 HOURS NEEDED FOR SHORTNESS OF BREATH OR WHEEZING triamcinolone acetonide 0.1 % cream See Rx Instructions .ROUTE .COMPLEX Qty: 30 0RF Dose Instruction: APPLY TO THE AFFECTED AREA(S) TWICE A DAY Rx Instructions: APPLY TO THE AFFECTED AREA(S) TWICE A DAY clopidogrel 75 mg tablet See Rx Instructions .ROUTE .COMPLEX Qty: 90 0RF Dose Instruction: TAKE ONE TABLET BY MOUTH DAILY Rx Instructions: TAKE ONE TABLET BY MOUTH DAILY digoxin 125 mcg (0.125 mg) tablet See Rx Instructions .ROUTE .COMPLEX Qty: 90 0RF Dose Instruction: TAKE ONE TABLET BY MOUTH DAILY Rx Instructions: TAKE ONE TABLET BY MOUTH DAILY metformin 1,000 mg tablet See Rx Instructions .ROUTE .COMPLEX Qty: 180 0RF Dose Instruction: TAKE ONE TABLET BY MOUTH TWICE A DAY Rx Instructions: TAKE ONE TABLET BY MOUTH TWICE A DAY Atrovent HFA 17 mcg/actuation HFA aerosol inhaler See Rx Instructions .ROUTE .COMPLEX Qty: 12.9 0RF Dose Instruction: 1 PUFF BY MOUTH 4 TIMES A DAY Rx Instructions: 1 PUFF BY MOUTH 4 TIMES A DAY montelukast 10 mg tablet See Rx Instructions .ROUTE .COMPLEX Qty: 30 0RF Dose Instruction: TAKE ONE TABLET BY MOUTH ONCE DAILY AT BEDTIME Rx Instructions: TAKE ONE TABLET BY MOUTH ONCE DAILY AT BEDTIME gabapentin 300 mg capsule See Rx Instructions .ROUTE .COMPLEX Qty: 360 0RF Dose Instruction: TRANSFERRED: 03/17/23 -READ RX NOTE (ALT-N)- TAKE 1 CAPSULE BY MOUTH 4 TIMES A DAY 90 DAYS Rx Instructions: TRANSFERRED: 03/17/23 -READ RX NOTE (ALT-N)- TAKE 1 CAPSULE BY MOUTH 4 TIMES A DAY 90 DAYS spironolactone 25 mg tablet See Rx Instructions .ROUTE .COMPLEX Qty: 30 0RF Dose Instruction: TAKE ONE TABLET BY MOUTH DAILY Rx Instructions: TAKE ONE TABLET BY MOUTH DAILY fluticasone furoate-vilanterol [Breo Ellipta] 200-25 mcg/dose blister with device See Rx Instructions .ROUTE .COMPLEX Qty: 60 0RF Dose Instruction: INHALE 1 PUFF BY MOUTH DAILY Rx Instructions: INHALE 1 PUFF BY MOUTH DAILY lovastatin 40 mg tablet See Rx Instructions .ROUTE .COMPLEX Qty: 90 0RF Dose Instruction: TAKE ONE TABLET BY MOUTH DAILY Rx Instructions: TAKE ONE TABLET BY MOUTH DAILY furosemide 20 mg tablet See Rx Instructions .ROUTE .COMPLEX Qty: 30 0RF Dose Instruction: TAKE ONE TABLET BY MOUTH DAILY IN THE MORNING Rx Instructions: TAKE ONE TABLET BY MOUTH DAILY IN THE MORNING Follow-up/Referrals: Guy Brooks, [Primary Care Provider] -
[2024-08-30] MEDS: IBUPROFEN 600 MG TABLET PO (09:54)
[2024-08-30] MEDS: ACETAMINOPHEN 325 MG TABLET 650 MG PO (09:55)
[2024-08-30 10:02] VITALS: BP 178/80; PULSE 68; RESP 18; TEMP 36.6; O2SAT 91
== END 2024-08-30 10:02 | disposition home or self-care (01) ==
LOC: CHSED 09:44
PROVIDERS: Emergency Provider Emergency Medicine; PCP Family Medicine
DX: S83.92XA Sprain of unspecified site of left knee, initial encounter (principal); I10 Essential (primary) hypertension; E11.9 Type 2 diabetes mellitus without complications; J44.9 Chronic obstructive pulmonary disease, unspecified; F17.210 Nicotine dependence, cigarettes, uncomplicated; W10.9XXA Fall (on) (from) unspecified stairs and steps, initial encounter
CPT/HCPCS: 73564; 99283; A9270; L1830

== ENCOUNTER 2025-04-07 11:30 | Outpatient (CLI) | payer MEDICARE, MEDICAID, SELFPAY ==
--- NOTE | ~2025-04-07 | CT_ITS ---
CT abdomen pelvis wo con Ordering provider: Guy Brooks DO History: 59 years Female with . R10.9 - Unspecified abdominal pain . Comparison: None. Technique: CT abdomen and pelvis with IV and without oral contrast. Automated exposure control and it erative reconstruction technique were employed. The dose-length product was 230.96 mGy-cm. Findings: VISUALIZED LOWER CHEST: Fibrotic changes of the lung bases. Focal Atelectatic changes in the lingula. Cardiomegaly. Soft tissue density seen adjacent to the aorta on the right side may be focal aneurysm al dilatation. Follow-up advised. UPPER ABDOMINAL ORGANS: Liver: Hepatomegaly. Gallbladder: Normal. Spleen: Normal. Calcified granulomas Stomach/duodenum: Normal. Pancreas: Normal. Adrenals: Normal. Kidneys: Normal. PELVIC ORGANS: The bladder is underfilled with thickened wall. Evaluation for cystitis advised. BOWEL AND MESENTERY: Colon: No evidence of diverticulitis. Appendix is not demonstrated.. Small Bowel: Normal. No obstruction. Peritoneum/mesentery: No free air or free fluid. No mesenteric lymphadenopathy. RETROPERITONEUM: Moderate atheromatous disease of the abdominal aorta. No retroperitoneal lymphaden opathy. MUSCULOSKELETAL: Superficial soft tissues: The superficial soft tissues are normal. Bones: Normal spine. IMPRESSION: 1. No evidence of appendicitis, diverticulitis or intestinal obstruction. No renal stones. 2. Hepatomegaly. 3. Underfilled urinary bladder with slightly thickened wall. Evaluation for cystitis advised. 4. Cardiomegaly. Reviewed, dictated and finalized at location A. IMPRESSION: 1. No evidence of appendicitis, diverticulitis or intestinal obstruction. No r enal stones. 2. Hepatomegaly. 3. Underfilled urinary bladder with slightly thickened wall. Evaluation for cy stitis advised. 4. Cardiomegaly.
[2025-04-07 12:39] LABS: Add Urine Microscopic? YES; Appearance Urine Clear (Clear); Bilirubin Urine 1+ (Negative); Blood Urine Trace-intact (Negative); Color Urine Light Yellow (Yellow); Glucose Urine UA Negative (Negative); Ketones Urine Trace (Negative); Leukocyte Esterase Ur Trace (Negative); Nitrate Urine Negative (Negative); Protein Urine 3+ (Negative); Urobilinogen Urine 0.2 mg/dL (0.2-1.0)
[2025-04-07 12:47] LABS: Basophils Absolute Auto 0.04 K/mm3 (0.00-0.10); Basophils Percent Auto 0.4 % (0.0-1.0); Eosinophils Absolute Auto 0.06 K/mm3 (0.02-0.50); Eosinophils Percent Auto 0.7 % (1.0-6.0); Hematocrit 54.1 % (35.0-49.0); Hemoglobin 16.7 g/dL (12.0-15.0); Immature Granulocyte Absolute 0.02 K/mm3 (0.00-0.00); Immature Granulocyte Percent A 0.2 % (0.0-0.0); Lymphocytes Absolute Auto 1.11 K/mm3 (1.10-4.50); Lymphocytes Percent Auto 12.3 % (18.0-42.0); Mean Corpuscular HGB Conc 30.9 g/dL (32-36); Mean Corpuscular Hemoglobin 27.8 pg (27.0-31.0); Mean Platelet Volume 11.3 fl (9.2-11.8); Monocytes Absolute Auto 0.71 K/mm3 (0.10-0.90); Monocytes Percent Auto 7.9 % (2.0-11.0); Neutrophils Percent Auto 78.5 % (50.0-70.0); Platelet Count Result 191 K/mm3 (150-420); Red Blood Count 6.01 M/mm3 (4.20-5.40)
[2025-04-07 12:50] LABS: RBC Urine None seen /hpf (0-2); WBC Urine 0-3 /hpf (0-3)
[2025-04-07 12:51] LABS: Squamous Epithelial Cell Urine Few /hpf (Few)
[2025-04-07 12:52] LABS: Bacteria Urine Trace /hpf
[2025-04-07 12:53] LABS: Alanine Aminotransferase 15 U/L (6-35); Albumin Level 3.9 g/dL (3.5-5.1); Alkaline Phosphatase 134 U/L (38-126); Anion Gap 5 mmol/L (4-12); Aspartate Amino Transferase 25 U/L (14-36); Bilirubin,Total 1.3 mg/dL (0.2-1.3); Blood Urea Nitrogen 19 mg/dL (7-17); Calcium 9.3 mg/dL (8.4-10.2); Carbon Dioxide 30 mmol/L (22-30); Chloride 103 mmol/L (98-107); Estimated Glomerular Filt Rate 53; Glucose 67 mg/dL (65-110); Lipase 80 U/L (23-300); Osmolality Calculated 286 mOsm/kg (285-295); Sodium 138 mmol/L (137-145); Total Protein 6.7 g/dL (6.3-8.2)
== END 2025-04-07 11:31 | disposition home or self-care (01) ==
PROVIDERS: PCP Family Medicine; Visit Provider Family Medicine
DX: R10.9 Unspecified abdominal pain (principal); R16.0 Hepatomegaly, not elsewhere classified; I51.7 Cardiomegaly; R93.41 Abnormal radiologic findings on diagnostic imaging of renal pelvis, ureter, or bladder
CPT/HCPCS: 36415; 74176; 80053; 81001; 83690; 85025; 86140

== ENCOUNTER 2025-05-08 12:13 | Emergency (ER) | payer OTHER, MEDICARE, MEDICAID, SELFPAY ==
[2025-05-08 12:15] VITALS: BP 163/98; PULSE 82; RESP 18; TEMP 36.1; O2SAT 88
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
--- OUTSIDE RECORDS SUMMARY | 2025-05-08 12:15 | XMS_ITS | Encounter Summary ---
Author Organization [facility] Address [address] [place] [address] Care Team Providers Care Clinical Sciences Professor Name Role Phone Steffen Reeves MD Primary Care Provider [phone] Oneil Santoyo MD Unavailable Unavailab Guy Blum DO Primary Care Provider [phone] Lilia Weber MD Unavailable Kristopher Hawk MD Unavailable [phone] Encounter Details Date Type Department Care Team (Late st Contact Info) Description 05/08/2016 Abstract [facility] AT [address] [address] Oneil Santoyo MD Social History Tobacco Use Types Packs/Day Years Used Date Smoking Tobacco: Smoker, Current Status Unknown Alcohol Use Standard Drinks/Week Comments No 0 (1 standard drink = 0.6 oz pur e alcohol) Comments Unknown Sex and Gender Information Value Date Recorded Sex Assigned at Female 11/08/2024 10:07 AM HEEL SEAT POUNDER Legal Sex Female 9:56 PM CDT Gender Identity Not on file Sexual Orientation Not on file 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 Not on file Not on file documented as of this encounter Plan of Treatment Upcoming Encounters Date Type Department Care Team (Late st Contact Info) Description 05/09/2025 8:00 AM CDT Appointment [facility] [address] [place] [address] [place] [address] Lilia Weber MD [address] [place], [place] [id number] 05/09/2025 8:15 AM CDT Office Visit [facility] [address] [place] [address] Lilia Weber MD [address] [place], [place] [id number] documented as of this encounter Visit Diagnoses Not on filedocumented in this encounter Additional Health Concerns Infection Onset Date Last Indicated Resolved Time COVID-19 Rule Out 03/06/2022 03/06/2022 03/06/2022 6:53 PM CDT COVID-19 Rule Out 03/09/2022 03/09/2022 03/09/2022 11:57 PM CDT COVID-19 Rule Out 03/10/2022 03/10/2022 03/10/2022 12:56 PM CDT MRSA Comment:03/10/21 Tracheal aspirate (RG) 03/13/2022 03/13/2022 documented as of this encounter Care Teams Clinical Sciences Professor Relationship Specialty Start Date End Date Steffen Reeves MD [address] [place] [address] PCP - General FAMILY PRACTICE 05/07/16 03/05/22 Guy Brooks DO [address] [place] [address] PCP - General FAMILY PRACTICE 03/06/22 Oneil Santoyo MD [address] [place] [address] CARDIOVASCULAR DISEASE 05/07/16 Lilia Weber MD [address] [place] [address] [place] [employer] Specialist CARDIOVASCULAR DISEASE 04/09/22 Kristopher Hawk MD [address] [place] [address] Consulting Physician PULMONARY DISEASE 04/09/22 documented as of this encounter
--- OUTSIDE RECORDS SUMMARY | 2025-05-08 12:15 | XMS_ITS | Clinical Summary ---
Author Organization [facility] Address [address] [place] [address] Care Team Providers Care Credit Risk Manager Name Role Phone Oneil Santoyo MD Unavailable Unavailab Guy Blum DO Primary Care Provider [phone] Lilia Weber MD Unavailable Kristopher Hawk MD Unavailable [phone] Allergies No known active allergies Medications metFORMIN 500 MG tablet Take 2 tablets (1,000 mg total) by mouth 2 (two) times daily. 5 Active lovastatin 40 MG tablet Take 1 tablet (40 mg total) by mouth daily. 5 Active albuterol sulfate HFA 108 (90 Base) MCG/ACT inhaler 1 puff every 4 (four) hours as needed. 5 Active montelukast 10 MG tablet Take 1 tablet (10 mg total) by mouth nightly at bedtime. Active furosemide 40 MG tablet Take 0.5 tablets (20 mg total) by mouth daily. Active digoxin 0.125 MG tablet Take 1 tablet (0.125 mg total) by mouth daily. Active gabapentin 100 MG capsule Take 1 capsule (100 mg total) by mouth 4 (four) times daily. Active clopidogrel 75 MG tablet Take 1 tablet (75 mg total) by mouth daily. Active ipratropium 0.02 % nebulizer solution Take 2.5 mLs (500 mcg total) by nebulization 4 (four) times daily. Active OXYGEN Inhale 3 L into the lungs continuous. 5 Active ipratropium (ATROVENT HFA) 17 MCG/ACT inhaler Inhale 1-2 puffs into the lungs 4 (four) times daily as needed. 8 Active spironolactone (ALDACTONE) 25 MG tablet Take 1 tablet (25 mg total) by mouth daily. 2 Active BREO ELLIPTA 200-25 MCG/ACT inhaler 2 Active Active Problems Problem Noted Date Diagnosed Date Centrilobular emphysema ([facility]) 2021 Pulmonary hypertension ([facility]) 022 Dependence on supplemental oxygen 04/27/2022 Obstructive sleep apnea (adult) (pediatric) 04/12 Smoker 04/27/2022 [place]'s syndrome 04/27/2022 Respiratory failure ([facility]) 03/10/2022 CHF (congestive heart failure) ([facility]) 03/07/2022 COPD with acute bronchitis ([facility]) Cor pulmonale (chronic) ([facility]) 2016 Essential (primary) hypertension 05/04/2017 Hyperlipidemia, mixed 05/04/2017 Encounters Date Type Department Care Team Description 05/04/2025 [facility] [address] [place] [address] Lilia Weber MD from Last 3 Months Family History Medical History Relation Comments COPD Father Cancer Mother Relation Status Comments Father Mother Alive Social History Tobacco Use Types Packs/Day Years Used Date Smoking Tobacco: Every Day Cigarettes 0.5 50 Smokeless Tobacco: Never Tobacco Cessation:Ready to Q uit: Yes Alcohol Use Standard Drinks/Week Comments No 0 (1 standard drink = 0.6 oz pur e alcohol) Comments No Sex and Gender Information Value Date Recorded Sex Assigned at Female 11/08/2024 10:07 AM 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 Legal Sex Female 9:56 PM CDT Gender Identity Not on file Sexual Orientation Not on file Occupation Industry Job Start Date Job End Date disabled Not on file Not on file Not on file Last Filed Vital Signs Vital Sign Reading Time Taken Comments Blood Pressure 148/81 11/08/2024 1:46 PM BLOOD BANK CREDIT CLERK Pulse 60 11/08/2024 1:46 PM BLOOD BANK CREDIT CLERK Temperature 37 C (98.6 F) 03/16/2022 8:48 AM CDT Respiratory Rate 20 11/08/2024 1:46 PM BLOOD BANK CREDIT CLERK Oxygen Saturation 92% 11/08/2024 1:46 PM BLOOD BANK CREDIT CLERK Inhaled Oxygen Concentration - - Weight 64 kg (141 lb) 11/08/2024 1:46 PM BLOOD BANK CREDIT CLERK Height 157.5 cm (5' 2) 11/08/2024 1:46 PM BLOOD BANK CREDIT CLERK Body Mass Index 25.79 11/08/2024 1:46 PM BLOOD BANK CREDIT CLERK Plan of Treatment Upcoming Encounters Date Type Department Care Team (Late st Contact Info) Description 05/09/2025 8:00 AM CDT Appointment [facility] [address] [place], [place] [address] [place] [address] Lilia Weber MD [address] [place] [phone] 05/09/2025 8:15 AM CDT Office Visit [facility] [address] [place] [address] Lilia Weber MD [address] [place] [phone] Health Maintenance Due Date Last Done Comments Cervical Cancer Screening Pa p Smear (Age 30 to 64) Every 3 Years 1963 Colorectal Cancer Screening Colonoscopy (10 Years) 1963 Annual Physical 1966 Hepatitis C 1981 DTaP, Tdap and Td Vaccines ( 1 - Tdap) 1982 Cervical Cancer Screening Pa p with HPV Testing (Age 30 to 64) Every 5 Years 1993 Cervical Cancer Screening wi th HPV 1993 Mammogram Screening 2003 Lung Cancer Screening 2013 Zoster Vaccines (1 of 2) 2013 Pneumococcal Vaccine: 50+ Years (2 of 2 - PCV) 07/13/2015 07/13/2014, 10/13/2013 RSV Immunization or 60+ Years (1 - Risk 60-74 years 1-dose series) 2023 COVID-19 Vaccine (4 - 2023-2 5 season) 2024 10/10/2021, 01/12/2021, 12/15/2020 Meningococcal B Vaccine Aged Out No l onger eligible based on patient's age to complete this topic Meningococcal Vaccine Aged Out No alvaro angie eligible based on patient's age to complete this topic RSV Immunizations Under 20 Months Aged Out No longer eligible b ased on patient's age to complete this topic Goals Goal Patient Goal Type Associated Problems Recent Progress Patient-Stated? Author Safety Patient/family will have appropriate support at home upon discharge General No Mahnaz Flores LSW Safety Patient/family will have appropriate support at home upon discharge General No Celeste Miramontes RN Additional Health Concerns Infection Onset Date Last Indicated MRSA Comment:03/10/21 Tracheal aspirate (RG) 03/13/2022 03/13/2022 Insurance [place] [address] MEDICAID MED REPLACE [facility] MEDICARE SOLUTIONS Advance Directives Documents on File Type Date Recorded Patient Trial Paralegal Expl anation Advance Directives and Living Will 03/08/2022 8:06 AM Power of Truck Packer 04/10/2022 12:05 PM STEVIE Jerez-Healthcare Agent; Paola Palencia, 1st alternate [facility]-daughter; Advance Directives and Living Will 03/29/2017 SHORT FORM POWER OF THREAD PULLING MACHINE ATTENDANT Advance Directives and Living Will 03/29/2017 SHORT FORM POWER OF THREAD PULLING MACHINE ATTENDANT Advance Directives and Living Will 01/09/2017 SHORT FORM POWER OF THREAD PULLING MACHINE ATTENDANT Advance Directives and Living Will 01/09/2017 SHORT FORM POWER OF THREAD PULLING MACHINE ATTENDANT Advance Directives and Living Will 04/29/2016 SHORT FORM POWER OF THREAD PULLING MACHINE ATTENDANT Advance Directives and Living Will 04/29/2016 SHORT FORM POWER OF THREAD PULLING MACHINE ATTENDANT * DNR (Latest Code Status on File) Date Activated Date Inactivated Comments 03/10/2022 5:23 AM 03/16/2022 3:17 PM * Full Code Date Activated Date Inactivated Comments 03/10/2022 4:43 AM 03/10/2022 5:23 AM * Full Code Date Activated Date Inactivated Comments 03/06/2022 8:28 PM 03/08/2022 3:41 PM Healthcare Agents on File Name Relationship Healthcare Agent Relationship Communication Irma Oropeza ([facility]) Healthcare Agent Health Care Agent Paola Palencia Daughter First Alternate Health Care Agent Care Teams Credit Risk Manager Relationship Specialty Start Date End Date Guy Brooks DO [address] [place] [address] PCP - General FAMILY PRACTICE 03/06/22 Oneil Santoyo MD CARDIOVASCULAR DISEASE 05/07/16 Lilia Weber MD [address] [place] [address] [place] Hotel Engineer CARDIOVASCULAR DISEASE 04/09/22 Kristopher Hawk MD [address] [place] [address] Consulting Physician PULMONARY DISEASE 04/09/22
--- OUTSIDE RECORDS SUMMARY | 2025-05-08 12:15 | XMS_ITS | Encounter Summary ---
Author Organization [facility] Address [address] [place] [address] Care Team Providers Care Linux Vmware Administrator Name Role Phone Steffen Reeves MD Primary Care Provider [phone] Oneil Santoyo MD Unavailable Unavailab Guy Blum DO Primary Care Provider [phone] Lilia Weber MD Unavailable Kristopher Hawk MD Unavailable [phone] Encounter Details Date Type Department Care Team (Late st Contact Info) Description 03/20/2019 Abstract [facility] [address] [place] [address] , Generic Conversion, Social History Tobacco Use Types Packs/Day Years Used Date Smoking Tobacco: Every Day Alcohol Use Standard Drinks/Week Comments No 0 (1 standard drink = 0.6 oz pur e alcohol) Comments Unknown Sex and Gender Information Value Date Recorded Sex Assigned at Female 11/08/2024 10:07 AM 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 Legal Sex Female 9:56 PM CDT Gender Identity Not on file Sexual Orientation Not on file Occupation Industry Job Start Date Job End Date disabled Not on file Not on file Not on file documented as of this encounter Plan of Treatment Upcoming Encounters Date Type Department Care Team (Late st Contact Info) Description 05/09/2025 8:00 AM CDT Appointment [facility] [address] [place] [address] [place] [address] Lilia Weber MD [address] [place], [place] [phone] 05/09/2025 8:15 AM CDT Office Visit [facility] [address] [place] [address] [place] [id number] Lilia Weber MD [address] [place] [address] documented as of this encounter Visit Diagnoses [...] documented as of this encounter Care Teams Linux Vmware Administrator Relationship Specialty Start Date End Date Steffen Reeves MD [address] [place] [address] PCP - General FAMILY PRACTICE 05/07/16 03/05/22 Guy Brooks DO [address] [place] [address] PCP - General FAMILY PRACTICE 03/06/22 Oneil Santoyo MD [address] [place] [address] CARDIOVASCULAR DISEASE 05/07/16 Lilia Weber MD [address] [place] [address] [place] [employer] Billing Coordinator CARDIOVASCULAR DISEASE 04/09/22 Kristopher Hawk MD [address] [place] [address] Consulting Physician PULMONARY DISEASE 04/09/22 documented as of this encounter
--- OUTSIDE RECORDS SUMMARY | 2025-05-08 12:52 | XMS_ITS | Clinical Summary ---
Author Organization [facility] Address [address] [place] [address] Care Team Providers Care Heavy Forging Machine Operator Name Role Phone Oneil Santoyo MD Unavailable Unavailab Guy Blum DO Primary Care Provider [phone] Lilia Weber MD Unavailable Kristopher Hawk MD Unavailable [phone] Allergies No known active allergies Medications [...] Problem Noted Date Diagnosed Date Centrilobular emphysema ([facility]) 2021 Pulmonary hypertension ([facility]) 022 Dependence on supplemental oxygen 04/27/2022 Obstructive sleep apnea (adult) (pediatric) 04/12 Smoker 04/27/2022 [place]'s syndrome 04/27/2022 Respiratory failure ([facility]) 03/10/2022 CHF (congestive heart failure) ([facility]) 03/07/2022 COPD with acute bronchitis ([facility]) Cor pulmonale (chronic) ([facility]) 2016 Essential (primary) hypertension 05/04/2017 Hyperlipidemia, mixed 05/04/2017 Encounters Date Type Department Care Team Description 05/04/2025 Orders Only [facility] [address] [place] [address] Lilia Weber MD from Last 3 Months [...] Sex Assigned at Female 11/08/2024 10:07 AM REGISTRAR ASSISTANT Legal Sex Female 9:56 PM CDT Gender Identity Not on file Sexual Orientation Not on file Occupation Industry Job Start Date Job End Date disabled Not on file Not on file Not on file Last Filed Vital Signs Vital Sign Reading Time Taken Comments Blood Pressure 148/81 11/08/2024 1:46 PM REGISTRAR ASSISTANT Pulse 60 11/08/2024 1:46 PM REGISTRAR ASSISTANT Temperature 37 C (98.6 F) 03/16/2022 8:48 AM CDT Respiratory Rate 20 11/08/2024 1:46 PM REGISTRAR ASSISTANT Oxygen Saturation 92% 11/08/2024 1:46 PM REGISTRAR ASSISTANT Inhaled Oxygen Concentration - - Weight 64 kg (141 lb) 11/08/2024 1:46 PM REGISTRAR ASSISTANT Height 157.5 cm (5' 2) 11/08/2024 1:46 PM REGISTRAR ASSISTANT Body Mass Index 25.79 11/08/2024 1:46 PM REGISTRAR ASSISTANT Plan of Treatment Upcoming Encounters Date Type Department Care Team (Late st Contact Info) Description 05/09/2025 8:00 AM CDT Appointment [facility] [address] [place], [place] [address] [place] [address] Lilia Weber MD [address] [place] [address] [phone] 05/09/2025 8:15 AM CDT Office Visit [facility] [address] [place] [address] Lilia Weber MD [address] [place] [address] [phone] Health Maintenance Due Date Last Done Comments [...] Tracheal aspirate (RG) 03/13/2022 03/13/2022 Insurance MEDICAID MEDICAID MED REPLACE [facility] MEDICARE SOLUTIONS Advance Directives Documents on File Type Date Recorded Patient Statistical Developer Expl anation Advance Directives and Living Will 03/08/2022 8:06 AM Power of Investigative Writer 04/10/2022 12:05 PM STEVIE Jerez-Healthcare Agent; Paola Palencia, 1st alternate HCA-daughter; Advance Directives and Living Will 03/29/2017 SHORT FORM POWER OF WIRE SETTER Advance Directives and Living Will 03/29/2017 SHORT FORM POWER OF WIRE SETTER Advance Directives and Living Will 01/09/2017 SHORT FORM POWER OF WIRE SETTER Advance Directives and Living Will 01/09/2017 SHORT FORM POWER OF WIRE SETTER Advance Directives and Living Will 04/29/2016 SHORT FORM POWER OF WIRE SETTER Advance Directives and Living Will 04/29/2016 SHORT FORM POWER OF WIRE SETTER * DNR (Latest Code Status on File) Date Activated Date Inactivated Comments 03/10/2022 5:23 AM 03/16/2022 3:17 PM * Full Code Date Activated Date Inactivated Comments 03/10/2022 4:43 AM 03/10/2022 5:23 AM * Full Code Date Activated Date Inactivated Comments 03/06/2022 8:28 PM 03/08/2022 3:41 PM Healthcare Agents on File Name Relationship Healthcare Agent Relationship Communication Irma Oropeza ([facility]) Healthcare Agent Health Care Agent Paola Palencia Daughter First Alternate Health Care Agent Care Teams Heavy Forging Machine Operator Relationship Specialty Start Date End Date Guy Brooks DO [address] [place] [address] PCP - General FAMILY PRACTICE 03/06/22 Oneil Santoyo MD CARDIOVASCULAR DISEASE 05/07/16 Lilia Weber MD [address] [place] [address] [place] Real Estate Branch Manager CARDIOVASCULAR DISEASE 04/09/22 Kristopher Hawk MD [address] [place] [address] Consulting Physician PULMONARY DISEASE 04/09/22
--- OUTSIDE RECORDS SUMMARY | 2025-05-08 12:52 | XMS_ITS | Encounter Summary ---
Author Organization [facility] Address [address] [place] [address] Care Team Providers Care Overhauler Name Role Phone Steffen Reeves MD Primary Care Provider [phone] Oneil Santoyo MD Unavailable Unavailab Guy Blum DO Primary Care Provider [phone] Lilia Weber MD Unavailable Kristopher Hawk MD Unavailable [phone] Encounter Details Date Type Department Care Team (Late st Contact Info) Description 05/08/2016 Abstract [facility] AT [address] [address] Oneil Santoyo MD Social History Tobacco Use Types Packs/Day Years Used Date Smoking Tobacco: Smoker, Current Status Unknown Alcohol Use Standard Drinks/Week Comments No 0 (1 standard drink = 0.6 oz pur e alcohol) Comments Unknown Sex and Gender Information Value Date Recorded Sex Assigned at Female 11/08/2024 10:07 AM ACTOR UNDERSTUDY Legal Sex Female 9:56 PM CDT Gender Identity Not on file Sexual Orientation Not on file 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 Not on file Not on file documented as of this encounter Plan of Treatment Upcoming Encounters Date Type Department Care Team (Late st Contact Info) Description 05/09/2025 8:00 AM CDT Appointment [facility] [address] [place] [address] [place] [address] Lilia Weber MD [address] [place], [place] [phone] 05/09/2025 8:15 AM CDT Office Visit [facility] [address] [place] [address] Lilia Weber MD [address] [place], [place] [address] documented as of this encounter Visit Diagnoses [...] documented as of this encounter Care Teams Overhauler Relationship Specialty Start Date End Date Steffen Reeves MD [address] [place] [address] PCP - General FAMILY PRACTICE 05/07/16 03/05/22 Guy Brooks DO [address] [place] [address] PCP - General FAMILY PRACTICE 03/06/22 Oneil Santoyo MD [address] [place] [address] CARDIOVASCULAR DISEASE 05/07/16 Lilia Weber MD [address] [place] [address] [place] Jew[employer]ry Making Instructor CARDIOVASCULAR DISEASE 04/09/22 Kristopher Hawk MD [address] [place] [address] Consulting Physician PULMONARY DISEASE 04/09/22 documented as of this encounter
--- OUTSIDE RECORDS SUMMARY | 2025-05-08 12:52 | XMS_ITS | Encounter Summary ---
Author Organization [facility] Address [address] [place] [address] Care Team Providers Care Public Safety Police Name Role Phone Steffen Reeves MD Primary Care Provider [phone] Oneil Santoyo MD Unavailable Unavailab Guy Blum DO Primary Care Provider [phone] Lilia Weber MD Unavailable Kristopher Hawk MD Unavailable [phone] Encounter Details Date Type Department Care Team (Late st Contact Info) Description 03/20/2019 Abstract [facility] [address] [place] [address] , Generic Conversion, Social History Tobacco Use Types Packs/Day Years Used Date Smoking Tobacco: Every Day Alcohol Use Standard Drinks/Week Comments No 0 (1 standard drink = 0.6 oz pur e alcohol) Comments Unknown Sex and Gender Information Value Date Recorded Sex Assigned at Female 11/08/2024 10:07 AM PARTS DEPARTMENT MANAGER Legal Sex Female 9:56 PM CDT Gender Identity Not on file Sexual Orientation Not on file Occupation Industry Job Start Date Job End Date disabled Not on file Not on file Not on file documented as of this encounter Plan of Treatment Upcoming Encounters Date Type Department Care Team (Late st Contact Info) Description 05/09/2025 8:00 AM CDT Appointment [facility] [address] [place] [address] [place] [address] Lilia Weber MD [address] [place], [place] [phone] 05/09/2025 8:15 AM CDT Office Visit [facility] [address] [place] [address] [place] [id number] Lilia Weber MD [address] [place] [address] documented as of this encounter Visit Diagnoses [...] documented as of this encounter Care Teams Public Safety Police Relationship Specialty Start Date End Date Steffen Reeves MD [address] [place] [address] PCP - General FAMILY PRACTICE 05/07/16 03/05/22 Guy Brooks DO [address] [place] [address] PCP - General FAMILY PRACTICE 03/06/22 Oneil Santoyo MD [address] [place] [address] CARDIOVASCULAR DISEASE 05/07/16 Lilia Weber MD [address] [place] [address] [facility] CARDIOVASCULAR DISEASE 04/09/22 Kristopher Hawk MD [address] [place] [address] Consulting Physician PULMONARY DISEASE 04/09/22 documented as of this encounter
== END 2025-05-08 13:05 | disposition home or self-care (01) ==
PROVIDERS: Emergency Provider Emergency Medicine; PCP Family Medicine
DX: Z04.1 Encounter for examination and observation following transport accident (principal); V89.2XXA Person injured in unspecified motor-vehicle accident, traffic, initial encounter
CPT/HCPCS: 99282

== ENCOUNTER 2025-05-16 15:15 | Outpatient (NON) | payer MEDICAID, MEDICARE, SELFPAY ==
[2025-05-16 16:22] LABS: Add Urine Microscopic? YES; Appearance Urine Clear (Clear); Glucose Urine UA Negative (Negative); Leukocyte Esterase Ur 1+ LEU/UL (Negative); Nitrate Urine Negative (Negative); Specific Grav Ur 1.020 (1.010-1.020)
[2025-05-16 16:54] LABS: MALB Creatinine Ratio 558.8 mg/g (0-30)
== END 2025-05-16 15:16 | disposition home or self-care (01) ==
LOC: CHSLAB 15:17
PROVIDERS: Visit Provider Nurse Practitioner Family
DX: E11.610 Type 2 diabetes mellitus with diabetic neuropathic arthropathy (principal); R39.9 Unspecified symptoms and signs involving the genitourinary system
CPT/HCPCS: 81001; 82043

== ENCOUNTER 2025-06-17 10:15 | Outpatient (NON) | payer MEDICARE, SELFPAY ==
[2025-06-17 10:22] LABS: Add Urine Microscopic? YES; Appearance Urine Clear (Clear); Glucose Urine UA Negative (Negative); Leukocyte Esterase Ur Trace LEU/UL (Negative); Nitrate Urine Negative (Negative); Specific Grav Ur 1.015 (1.010-1.020)
== END 2025-06-17 10:16 | disposition home or self-care (01) ==
LOC: CHSLAB 10:16
PROVIDERS: PCP Nurse Practitioner Family; Visit Provider Nurse Practitioner Family
DX: N39.0 Urinary tract infection, site not specified (principal)
CPT/HCPCS: 81001

== ENCOUNTER 2025-08-05 11:49 | Emergency (ER) | payer MEDICARE, MEDICAID, SELFPAY ==
[2025-08-05] VITALS (48 sets, daily range): BP systolic 102–164; BP diastolic 73–98; PULSE 57–79; RESP 13–28; TEMP 36.4; O2SAT 75–100
--- NOTE | ~2025-08-05 | XR_ITS ---
EXAMINATION: XR chest 1V portable COMPARISON: No comparisons available. HISTORY: Shortness of breath x3 days FINDINGS: Moderate pulmonary venous congestion. No pneumothorax. Moderate cardiomegaly. Probable tortuosity of the aorta. Bony thorax no acute abnormality. Miscellaneous: None Impression: Probable CHF. Tortuosity of the aorta suspected however aneurysm is not excluded. CT is suggested to further evaluate. Reviewed, dictated and finalized at location P. Impression: Probable CHF. Tortuosity of the aorta suspected however aneurysm is not exclude d. CT is suggested to further evaluate.
--- NOTE | ~2025-08-05 | CT_ITS ---
CT CHEST WITHOUT CONTRAST CLINICAL HISTORY: shortness of breath x3 days, abnormal x-ray . COMPARISON: Chest x-ray same day CT chest 07/03/2020 TECHNIQUE: Helical CT performed from thoracic inlet to upper abdomen without contrast Coronal, sagittal reformats CT images acquired with automatic exposure control for dose reduction DLP: 136 mGy-cm FINDINGS: Lungs/Pleura: Emphysema. Mosaic attenuation. Interlobular septal thickening. Mild right basilar airspace disease. Near-complete atelectasis right middle lobe. A few scattered micronodules. Heart: Cardiomegaly. Coronary artery calcifications Thoracic Aorta: No aneurysm. Atherosclerotic disease. Pulmonary arteries: Dilated. Tracheobronchial tree: Bibasilar occlusive foci. Nodes: No enlarged nodes. Bones: No acute bony abnormality. Soft tissues: Unremarkable. Visualized upper abdomen: Hepatomegaly, with steatosis. IMPRESSION: 1. Mild right lower lobe aspiration pneumonia 2. Right middle lobe collapse from obstructed bronchus. 3. Interstitial pulmonary edema and/or pneumonitis superimposed upon emphysema. 4. Chest x-ray appearance due to severe pulmonary arterial hypertension. Reviewed, dictated and finalized at location R. IMPRESSION: 1. Mild right lower lobe aspiration pneumonia 2. Right middle lobe collapse from obstructed bronchus. 3. Interstitial pulmonary edema and/or pneumonitis superimposed upon emphysema . 4. Chest x-ray appearance due to severe pulmonary arterial hypertension.
--- NOTE | 2025-08-05 11:54 | ED_ITS ---
HPI - General Adult General Chief complaint: Shortness of Breath/Dyspnea Stated complaint: shortness of breath Source: patient Mode of arrival: ambulatory Limitations: no limitations History of Present Illness HPI narrative: 60 years old white female came from home by private car complaining of increased shortness of breath, increased swelling of the lower extremities over the last few days. Patient denies any fever, chills, nausea, vomiting, chest pain, back pain. History of hypertension, CKD, COPD, Patient still smokes cigarettes, denies alcohol or drug use Patient currently on chronic oxygen, nasal cannula, 3 L Patient stated that she would like to be DNR today Related Data Home Medications ?Medication ?Instructions ?Recorded ?Confirmed ?Last Taken ?Type ipratropium bromide 18 1 puff inhalation BID 06/28/25 Unknown History mcg/actuation aerosol inhaler mecobalamin (vitamin B12) 1,000 1,000 mcg PO DAILY 06/28/25 Unknown History mcg chewable tablet (B12 Active) Allergies Allergy/AdvReac Type Severity Reaction Status Date / Time No Known Allergies Allergy Verified 08/05/25 12:07 Review of Systems 2 Review of Systems: All systems reviewed & are unremarkable except as noted in HPI and below PMFSH Past Medical History Medical History Eczema Hypertension associated with type 2 diabetes mellitus COPD (chronic obstructive pulmonary disease) Surgical History Surgical History History of tubal ligation 1986 Family History Family History Mother Breast cancer Father Diabetes mellitus Emphysema, unspecified Other Cerebrovascular accident Heart disease Social History Social History Smoking packs per day: 1 Smoking cigarettes per day: 20.0 Years smoked: 45 Smoking pack-years: 45.00 Smoking status: Current every day smoker Tobacco type: cigarettes Second hand tobacco smoke exposure: Yes Alcohol intake: never Substance use: never Substance use type: does not use Living arrangements: alone Additional living arrangements comments: . 4 Children. 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 Gender identity (if verbalized by the patient): Female Spiritual care concerns: No Exam 2 Narrative: General appearance: Well-developed, well-nourished Skin: Normal color, 3+ edema bilaterally up to the knees Head: Normocephalic, nontraumatic Eyes: Clear conjunctiva ENT: Oropharynx normal, ears normal, nose normal Neck: Supple, nontender Chest and respiratory: Airway patent, no respiratory distress, no accessory muscle use diminution of air entry bilaterally, scattered rales bilaterally mainly at the bases Heart: Regular rate/rhythm Abdomen: Soft, nontender, no organomegaly, quiet bowel sounds Vascular: Normal peripheral pulses, normal capillary refill. Musculoskeletal: Normal range of motion, nontender back Neurologic: Alert and oriented ?3, RN DELIVERY is normal as tested, no gross motor deficit Course Consultations Consultation #1: Patient was accepted for transferred to [facility], discussed with narinder webster nurse practitioner on-call Date: 08/05/25 Vital Signs Vital signs: Vital Signs Temperature 36.4 C 08/05/25 11:49 Pulse Rate 62 08/05/25 11:49 Respiratory Rate 24 H 08/05/25 11:49 Blood Pressure 129/97 H 08/05/25 11:49 Pulse Oximetry 80 L 08/05/25 11:49 Oxygen Delivery Nasal Cannula 08/05/25 11:49 Oxygen Flow Rate 3 08/05/25 11:49 Temperature 36.4 C 08/05/25 11:49 Pulse Rate 74 08/05/25 17:08 Respiratory Rate 18 08/05/25 17:08 Blood Pressure 102/73 08/05/25 17:08 Pulse Oximetry 100 08/05/25 17:08 Oxygen Delivery Room Air 08/05/25 17:08 Oxygen Flow Rate 5 08/05/25 14:30 Medical Decision Making [facility] Narrative Medical decision making narrative: Patient presents with shortness of breath Vital signs showing respiratory rate 24, oxygen saturation 80% on 3 L nasal cannula otherwise within normal limit Physical examination showing scattered rales bilaterally mainly at the basis bluish discoloration of the lips, patient report it is chronic, 3+ edema lower extremity bilaterally up to the knees Differential diagnosis include COPD exacerbation, congestive heart failure, pneumonia, bronchitis, upper respiratory viral infection Blood workup today includes CBC, CMP, troponin, proBNP showed hemoglobin 16.3, hematocrit 56.6, potassium 5.6, creatinine 2 point 0 1, BUN 48, lactic acid 4.7, troponin 0.183, pro BMP 27,500 Chest x-ray showed CHF,tortuosity of the aorta suspected however aneurysm is not excluded. CT is suggested to further evaluation ABG on 3 L showed pH 7.3, pCO2 49.5, PO2 39.4, oxygen saturation on 3 L 69.4% Diagnosis: Acute hypoxic respiratory failure, COPD exacerbation, CHF, MARK, hyperkalemia, elevated troponin Differential Diagnosis Differential Diagnosis: As above Vital Signs Vital Signs: Vital Signs Temperature 36.4 C 08/05/25 11:49 Pulse Rate 62 08/05/25 11:49 Respiratory Rate 24 H 08/05/25 11:49 Blood Pressure 129/97 H 08/05/25 11:49 Pulse Oximetry 80 L 08/05/25 11:49 Oxygen Delivery Nasal Cannula 08/05/25 11:49 Oxygen Flow Rate 3 08/05/25 11:49 Temperature 36.4 C 08/05/25 11:49 Pulse Rate 74 08/05/25 17:08 Respiratory Rate 18 08/05/25 17:08 Blood Pressure 102/73 08/05/25 17:08 Pulse Oximetry 100 08/05/25 17:08 Oxygen Delivery Room Air 08/05/25 17:08 Oxygen Flow Rate 5 08/05/25 14:30 Lab Data 08/05/25 12:23 08/05/25 12:23 Labs: Lab Results 08/05/25 08/05/25 08/05/25 Range/Units 12:23 12:50 14:18 WBC 9.4 (4.8-10.8) K/mm3 RBC 5.91 H (4.20-5.40) M/mm3 Hgb 16.3 H (12.0-15.0) g/dL Hct 56.6 H (35.0-49.0) % MCV 95.8 (78.0-102.0) fL MCH 27.6 (27.0-31.0) pg MCHC 28.8 L (32-36) g/dL RDW 16.4 H (11.6-14.4) % Plt Count 260 (150-420) K/mm3 MPV 10.9 (9.2-11.8) fl Immature Gran % (Auto) 1.1 H (0.0-0.0) % Neut % (Auto) 75.4 H (50.0-70.0) % Lymph % (Auto) 17.1 L (18.0-42.0) % [place] % (Auto) 5.9 (2.0-11.0) % Eos % (Auto) 0.1 L (1.0-6.0) % Baso % (Auto) 0.4 (0.0-1.0) % Lymph # (Auto) 1.61 (1.10-4.50) K/mm3 [place] # (Auto) 0.56 (0.10-0.90) K/mm3 Eos # (Auto) 0.01 L (0.02-0.50) K/mm3 Baso # (Auto) 0.04 (0.00-0.10) K/mm3 Abs Immat Gran (auto) 0.10 H (0.00-0.00) K/mm3 Absolute Neuts (auto) 7.11 (1.70-7.20) K/mm3 Absolute Nucleated RBC 0.05 H (0.00-0.00) K/mm3 Nucleated RBC % 0.5 H (0-0.0) % Sodium 141 (137-145) mmol/L Potassium 5.6 H (3.4-5.0) mmol/L Chloride 99 (98-107) mmol/L Carbon Dioxide 29 (22-30) mmol/L Anion Gap 13 H (4-12) mmol/L BUN 48 H D (7-17) mg/dL Creatinine 2.01 H (0.7-1.0) mg/dL Estim Creat Clear Calc 22 ml/min Estimated GFR 25 L (59 - ) Glucose 188 H (65-110) mg/dL Calculated Osmolality 309 H (285-295) mOsm/kg Lactic Acid 4.7 H (0.4-2.0) mmol/L Calcium 9.6 (8.4-10.2) mg/dL Magnesium 2.3 (1.6-2.3) mg/dL Total Bilirubin 1.0 (0.2-1.3) mg/dL AST 59 H (14-36) U/L ALT 43 H (6-35) U/L Alkaline Phosphatase 121 (38-126) U/L Troponin I 0.183 H* (0.000-0.034) ng/mL NT-Pro-B Natriuret Pep 96366 H (19.9-100) pg/mL Total Protein 8.8 H (6.3-8.2) g/dL Albumin 4.4 (3.5-5.1) g/dL Urine Color Light yellow (Yellow) Urine Appearance Sl cloudy A (Clear) Urine pH 6.0 (5.0-8.0) Ur Specific [place] 1.025 H (1.010-1.020) Urine Protein 3+ H (Negative) Urine Glucose (UA) Trace H (Negative) Urine Ketones Negative (Negative) Ur Blood (Man) 1+ H (Negative) Urine Nitrate Negative (Negative) Urine Bilirubin Negative (Negative) Urine Urobilinogen 0.2 (0.2-1.0) mg/dL Leukocyte Esterase Rfl 2+ H (Negative) VERONIKA/UL Urine RBC 3-5 H (0-2) /hpf Urine WBC 10-15 H (0-3) /hpf Ur Squamous Epith Cells Few (Few) /hpf Urine Bacteria 1+ H (None) /hpf Influenza A (RT-PCR) Negative (Negative) Influenza B (RT-PCR) Negative (Negative) RSV (RT-PCR) Negative (Negative) SARS-CoV-2 RNA (RT-PCR) Negative (Negative) 08/05/25 08/05/25 Range/Units 14:37 16:32 WBC (4.8-10.8) K/mm3 RBC (4.20-5.40) M/mm3 Hgb (12.0-15.0) g/dL Hct (35.0-49.0) % MCV (78.0-102.0) fL MCH (27.0-31.0) pg MCHC (32-36) g/dL RDW (11.6-14.4) % Plt Count (150-420) K/mm3 MPV (9.2-11.8) fl Immature Gran % (Auto) (0.0-0.0) % Neut % (Auto) (50.0-70.0) % Lymph % (Auto) (18.0-42.0) % [place] % (Auto) (2.0-11.0) % Eos % (Auto) (1.0-6.0) % Baso % (Auto) (0.0-1.0) % Lymph # (Auto) (1.10-4.50) K/mm3 [place] # (Auto) (0.10-0.90) K/mm3 Eos # (Auto) (0.02-0.50) K/mm3 Baso # (Auto) (0.00-0.10) K/mm3 Abs Immat Gran (auto) (0.00-0.00) K/mm3 Absolute Neuts (auto) (1.70-7.20) K/mm3 Absolute Nucleated RBC (0.00-0.00) K/mm3 Nucleated RBC % (0-0.0) % Sodium (137-145) mmol/L Potassium (3.4-5.0) mmol/L Chloride (98-107) mmol/L Carbon Dioxide (22-30) mmol/L Anion Gap (4-12) mmol/L BUN (7-17) mg/dL Creatinine (0.7-1.0) mg/dL Estim Creat Clear Calc ml/min Estimated GFR (59 - ) Glucose (65-110) mg/dL Calculated Osmolality (285-295) mOsm/kg Lactic Acid 4.0 H (0.4-2.0) mmol/L Calcium (8.4-10.2) mg/dL Magnesium (1.6-2.3) mg/dL Total Bilirubin (0.2-1.3) mg/dL AST (14-36) U/L ALT (6-35) U/L Alkaline Phosphatase (38-126) U/L Troponin I 0.211 H* (0.000-0.034) ng/mL NT-Pro-B Natriuret Pep (19.9-100) pg/mL Total Protein (6.3-8.2) g/dL Albumin (3.5-5.1) g/dL Urine Color (Yellow) Urine Appearance (Clear) Urine pH (5.0-8.0) Ur Specific [place] (1.010-1.020) Urine Protein (Negative) Urine Glucose (UA) (Negative) Urine Ketones (Negative) Ur Blood (Man) (Negative) Urine Nitrate (Negative) Urine Bilirubin (Negative) Urine Urobilinogen (0.2-1.0) mg/dL Leukocyte Esterase Rfl (Negative) VERONIKA/UL Urine RBC (0-2) /hpf Urine WBC (0-3) /hpf Ur Squamous Epith Cells (Few) /hpf Urine Bacteria (None) /hpf Influenza A (RT-PCR) (Negative) Influenza B (RT-PCR) (Negative) RSV (RT-PCR) (Negative) SARS-CoV-2 RNA (RT-PCR) (Negative) ABG Data ABG results: 08/05/25 12:02 Puncture Site Right radial ABG pH 7.30 L ABG pCO2 49.5 H ABG pO2 39.4 L* ABG HCO3 23.7 ABG O2 Saturation 69.4 L ABG Base Excess -3.3 L Oxyhemoglobin 67.7 L O2 Delivery Device Nasal cannula O2 Liters/Min 3.0 Imaging Data Radiologist's impression: Impressions Chest X-Ray 08/05/25 12:11 Impression: Probable CHF. Tortuosity of the aorta suspected however aneurysm is not excluded. CT is suggested to further evaluate. ECG Data EKG #1: Attestation: I personally reviewed and interpreted this ECG as follows: ECG completion date: 08/05/25 Interpretation: Sinus bradycardia with first-degree heart block at 58 beats per minute, right atrial enlargement left atrial enlargement delayed precordial R/S transition high lateral infarct, age indeterminate borderline ST T-wave abnormality- inferior leads, baseline artifact, abnormal EKG, no previous EKG available for comparison. Discharge Plan Discharge Clinical Impression: CHF (congestive heart failure), MARK (acute kidney injury), Elevated troponin, Acute hyperkalemia, Acute hypoxic respiratory failure, Aspiration pneumonia COPD (chronic obstructive pulmonary disease) Qualifiers: COPD type: unspecified COPD Qualified Code(s): J44.9 - Chronic obstructive pulmonary disease, unspecified Patient Disposition: Acute Care Hospital Condition: Guarded Prognosis Patient Language: Korean Prescriptions: No Action mecobalamin (vitamin B12) [B12 Active] 1,000 mcg tablet,chewable 1,000 mcg PO DAILY ofloxacin 0.3 % drops See Rx Instructions EACH EYE .COMPLEX Qty: 10 0RF Rx Instructions: put 2 drops into affected eyes every 4 h x 2 days, then 2 drops 4 times/day for days 3-7 ipratropium bromide 18 mcg/actuation aerosol 1 puff inhalation BID albuterol sulfate [Ventolin HFA] 90 mcg/actuation HFA aerosol inhaler See Rx Instructions .ROUTE .COMPLEX Qty: 18 3RF Dose Instruction: 1 PUFF INHALATION EVERY 4 HOURS NEEDED FOR SHORTNESS OF BREATH OR WHEEZING Rx Instructions: 1 PUFF INHALATION EVERY 4 HOURS NEEDED FOR SHORTNESS OF BREATH OR WHEEZING triamcinolone acetonide 0.1 % cream See Rx Instructions .ROUTE .COMPLEX Qty: 30 0RF Dose Instruction: APPLY TO THE AFFECTED AREA(S) TWICE A DAY Rx Instructions: APPLY TO THE AFFECTED AREA(S) TWICE A DAY montelukast 10 mg tablet See Rx Instructions .ROUTE .COMPLEX Qty: 90 1RF Dose Instruction: TAKE ONE TABLET BY MOUTH ONCE DAILY AT BEDTIME Rx Instructions: TAKE ONE TABLET BY MOUTH ONCE DAILY AT BEDTIME ondansetron HCl 4 mg tablet 4 mg PO Q8H PRN (Reason: nausea and vomiting) Qty: 20 0RF Atrovent HFA 17 mcg/actuation HFA aerosol inhaler See Rx Instructions .ROUTE .COMPLEX Qty: 12.9 2RF Dose Instruction: 1 PUFF BY MOUTH 4 TIMES A DAY Rx Instructions: 1 PUFF BY MOUTH 4 TIMES A DAY spironolactone 25 mg tablet See Rx Instructions .ROUTE .COMPLEX Qty: 90 2RF Dose Instruction: TAKE ONE TABLET BY MOUTH DAILY Rx Instructions: TAKE ONE TABLET BY MOUTH DAILY lisinopril 5 mg tablet 5 mg PO DAILY Qty: 90 0RF furosemide 20 mg tablet See Rx Instructions .ROUTE .COMPLEX Qty: 90 2RF Dose Instruction: TAKE ONE TABLET BY MOUTH DAILY IN THE MORNING Rx Instructions: TAKE ONE TABLET BY MOUTH DAILY IN THE MORNING fluticasone furoate-vilanterol [Breo Ellipta] 200-25 mcg/dose blister with device See Rx Instructions .ROUTE .COMPLEX Qty: 60 3RF Dose Instruction: INHALE 1 PUFF BY MOUTH DAILY Rx Instructions: INHALE 1 PUFF BY MOUTH DAILY lovastatin 40 mg tablet See Rx Instructions .ROUTE .COMPLEX Qty: 90 1RF Dose Instruction: TAKE ONE TABLET BY MOUTH DAILY Rx Instructions: TAKE ONE TABLET BY MOUTH DAILY clopidogrel 75 mg tablet See Rx Instructions .ROUTE .COMPLEX Qty: 90 2RF Dose Instruction: TAKE ONE TABLET BY MOUTH DAILY Rx Instructions: TAKE ONE TABLET BY MOUTH DAILY digoxin 125 mcg (0.125 mg) tablet See Rx Instructions .ROUTE .COMPLEX Qty: 90 1RF Dose Instruction: TAKE ONE TABLET BY MOUTH DAILY Rx Instructions: TAKE ONE TABLET BY MOUTH DAILY gabapentin 300 mg capsule See Rx Instructions .ROUTE .COMPLEX Qty: 360 1RF Dose Instruction: TAKE 1 CAPSULE BY MOUTH 4 TIMES A DAY FOR 90 DAYS Rx Instructions: TAKE 1 CAPSULE BY MOUTH 4 TIMES A DAY FOR 90 DAYS metformin 1,000 mg tablet See Rx Instructions .ROUTE .COMPLEX Qty: 180 1RF Dose Instruction: TAKE ONE TABLET BY MOUTH TWICE A DAY Rx Instructions: TAKE ONE TABLET BY MOUTH TWICE A DAY Follow-up/Referrals: Guy Brooks, [Primary Care Provider, Family Practice]
--- NOTE | 2025-08-05 12:01 | ECG_ITS ---
Test Date: 2025-08-05 12:25:04 Measurements Intervals [place] Rate: 58 P: 39 MS: 216 QRS: 125 QRSD: 96 T: 57 QT: 384 QTc: 379 Interpretive Statements SINUS BRADYCARDIA WITH FIRST DEGREE AV BLOCK RIGHT ATRIAL ENLARGEMENT LEFT ATRIAL ENLARGEMENT DELAYED PRECORDIAL R/S TRANSITION HIGH LATERAL INFARCT, AGE INDETERMINATE BORDERLINE ST-T WAVE ABNORMALITY- INFERIOR LEADS BASELINE ARTIFACT- AVR, AVL, AVF, V5 ABNORMAL ECG No previous ECG available for comparison Electronically Signed On 08-05-2025 12:58:09 CDT by Parish Bird D.O.
[2025-08-05] MEDS: IPRATROPIUM 0.5 MG/ALBUTEROL SULFATE 2.5 MG (BASE) AMPUL.NEB 3 ML INHALATION (12:13)
[2025-08-05 12:25] LABS: HCO3 ABG 23.7 mmol/L (23-29); Oxygen Saturation ABG 69.4 % (95-97); PCO2 ABG 49.5 mmHg (35-45)
[2025-08-05 12:27] LABS: Liters per Minute 3.0 LPM; Modified Allen's Test Pass; PO2 ABG 39.4 mmHg (80-90); Site Drawn RIGHT RADIAL
[2025-08-05 12:28] LABS: Hematocrit 56.6 % (35.0-49.0); Hemoglobin 16.3 g/dL (12.0-15.0); Immature Granulocyte Percent A 1.1 % (0.0-0.0); Lymphocytes Absolute Auto 1.61 K/mm3 (1.10-4.50); Mean Corpuscular HGB Conc 28.8 g/dL (32-36); Mean Corpuscular Hemoglobin 27.6 pg (27.0-31.0); Mean Corpuscular Volume 95.8 fL (78.0-102.0); Nucleated Red Blood Cells Absolute Auto 0.05 K/mm3 (0.00-0.00); Nucleated Red Blood Cells Perc 0.5 % (0-0.0); Platelet Count Result 260 K/mm3 (150-420); Red Blood Count 5.91 M/mm3 (4.20-5.40); White Blood Count 9.4 K/mm3 (4.8-10.8)
--- OUTSIDE RECORDS SUMMARY | 2025-08-05 12:38 | XMS_ITS | Encounter Summary ---
Author Organization [facility] Address [address] [place] [address] Care Team Providers Care Body Liner Name Role Phone Steffen Reeves MD Primary Care Provider [phone] Oneil Santoyo MD Unavailable Unavailab Guy Blum DO Primary Care Provider [phone] Lilia Weber MD Unavailable Kristopher Hawk MD Unavailable [phone] Encounter Details Date Type Department Care Team (Late st Contact Info) Description 03/20/2019 Abstract [facility] [address] [place] [address] , Generic MD Enedelia Social History Tobacco Use Types Packs/Day Years Used Date Smoking Tobacco: Every Day Alcohol Use Standard Drinks/Week Comments No 0 (1 standard drink = 0.6 oz pur e alcohol) Comments Unknown Sex and Gender Information Value Date Recorded Sex Assigned at Female 11/08/2024 10:07 AM DATABASE SOFTWARE TECHNICIAN Legal Sex Female 9:56 PM CDT Gender Identity Not on file Sexual Orientation Not on file Occupation Industry Job Start Date Job End Date disabled Not on file Not on file Not on file documented as of this encounter Plan of Treatment Upcoming Encounters Date Type Department Care Team (Late st Contact Info) Description 08/29/2025 9:00 AM DATABASE SOFTWARE TECHNICIAN Office Visit [facility] [place] [address] Lilia Weber MD [address] [place] [address] documented as of this encounter Visit Diagnoses [...] documented as of this encounter Care Teams Body Liner Relationship Specialty Start Date End Date Steffen Reeves MD [address] [place] [address] PCP - General FAMILY PRACTICE 05/07/16 03/05/22 Guy Brooks DO [address] [place] [address] PCP - General FAMILY PRACTICE 03/06/22 Oneil Santoyo MD [address] [place] [address] CARDIOVASCULAR DISEASE 05/07/16 Lilia Weber MD [address] [place] [address] [facility] Patient Care Secretary CARDIOVASCULAR DISEASE 04/09/22 Kristopher Hawk MD [address] [place] [address] Consulting Physician PULMONARY DISEASE 04/09/22 documented as of this encounter
--- OUTSIDE RECORDS SUMMARY | 2025-08-05 12:38 | XMS_ITS | Clinical Summary ---
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 [address] [place] [address] Angeles Mancera MD Discharge Disposition: Home or Self Care (Routine Discharge) 07/29/2025 8:41 AM CDT - 07/29/2025 8:43 AM CDT Hospital Encounter [facility] [address] [place] [address] Angeles Mancera MD Discharge Disposition: Home or Self Care (Routine Discharge) 07/29/[address] [facility] [address] [place] [address] Angeles Mancera MD 07/29/2025 Travel 07/06/2025 Telephone [facility] [address] [place] [address] Lilia Weber MD Reschedule 07/04/2025 Orders Only [facility] [address] [place] [address] Lilia Weber MD 06/29/2025 Telephone [facility] [address] [place] [address] Lilia Weber MD Appointment Reminder 06/01/2025 Telephone [facility] [address] [place] [address] Lilia Weber MD Reschedule 05/20/2025 Telephone [facility] [address] [place] [address] Lilia Weber MD Medication Request from Last 3 Months Family History Medical [...] Sex Assigned at Female 11/08/2024 10:07 AM SUPERVISOR FILTER ASSEMBLY Legal Sex Female 9:56 PM CDT Gender Identity Not on file Sexual Orientation Not on file Occupation Industry Job Start Date Job End Date disabled Not on file Not on file Not on file Last Filed Vital Signs Vital Sign Reading Time Taken Comments Blood Pressure 148/81 11/08/2024 1:46 PM SUPERVISOR FILTER ASSEMBLY Pulse 60 11/08/2024 1:46 PM SUPERVISOR FILTER ASSEMBLY Temperature 37 C (98.6 F) 03/16/2022 8:48 AM CDT Respiratory Rate 20 11/08/2024 1:46 PM SUPERVISOR FILTER ASSEMBLY Oxygen Saturation 92% 11/08/2024 1:46 PM SUPERVISOR FILTER ASSEMBLY Inhaled Oxygen Concentration - - Weight 64 kg (141 lb) 11/08/2024 1:46 PM SUPERVISOR FILTER ASSEMBLY Height 157.5 cm (5' 2) 11/08/2024 1:46 PM SUPERVISOR FILTER ASSEMBLY Body Mass Index 25.79 11/08/2024 1:46 PM SUPERVISOR FILTER ASSEMBLY Plan of Treatment Upcoming Encounters Date Type Department Care Team (Late st Contact Info) Description 08/29/2025 9:00 AM SUPERVISOR FILTER ASSEMBLY Office Visit [facility] [address] [place] [address] Lilia Weber MD [address] [place] [address] Health Maintenance Due Date Last Done Comments Cervical Cancer Screening Pap Smear (Age 30 to 64) Every 3 Years 1963 Colorectal Cancer Screening Colonoscopy (10 Years) 1963 Annual Physical 1966 Hepatitis C 1981 Cervical Cancer Screening Pap with HPV Testing (Age 30 to 64) Every 5 Years 1993 Cervical Cancer Screening with HPV 1993 Mammogram Screening 2003 Lung Cancer Screening 2013 Zoster Vaccines (1 of 2) 2013 Pneumococcal Vaccine: 50+ Years (3 of 3 - PCV20 or PCV21) 03/10/2023 03/10/2018, 07/13/2014, 10/13/2013, Additional history exists RSV Immunization or 60+ Years (1 - Risk 60-74 years 1-dose series) 2023 COVID-19 Vaccine ( - season) 2025 10/10/2021, 01/12/2021, 12/15/2020 Influenza Adult (#1) 2025 07/17/2023, 07/29/2022, 07/04/2020, Additional history exists DTaP, Tdap and Td Vaccines (2 - Td or Tdap) 03/10/2028 03/10/2018 Hepatitis A Vaccines Aged Out No long er eligible based on patient's age to complete this topic Meningococcal B Vaccine Aged Out No l onger eligible based on patient's age to complete this topic Meningococcal Vaccine Aged Out No alvaro angie eligible based on patient's age to complete this topic RSV Immunizations Under 20 Months Aged Out No longer eligible based on patient's age to complete this topic Goals Goal Patient Goal Type Associated Problems Recent Progress Patient-Stated? Author Safety Patient/family will have appropriate support at home upon discharge General No Mahnaz Flores LSW Safety Patient/family will have appropriate support at home upon discharge General No Celeste Miramontes phy therapist Procedure Name Priority Date/Time Associated Diagnosis Comments PROTEIN ELECTROPHORESIS URINE RANDOM Routine 07/29/2025 9:44 AM CDT Chronic kidney disease, stage 3a (CMS/HCC) Proteinuria HC CREATININE OTH SOURCE Routine 07/29/2025 9:44 AM CDT Chronic kidney disease, stage 3a (CMS/HCC) Proteinuria PROTEIN, ELECTROPHORESIS Routine 07/29/2025 9:38 AM CDT Chronic kidney disease, stage 3a (CMS/HCC) Proteinuria RENAL FUNCTION PANEL Routine 07/29/2025 9:38 AM CDT Chronic kidney disease, stage 3a (CMS/HCC) Proteinuria ANTI-GBM Routine 07/29/2025 9:38 AM CDT Chronic kidney disease, stage 3a (CMS/HCC) Proteinuria ANCA SCREEN, MPO PR3 W/RFX TTR Routine 07/29/2025 9:38 AM CDT Chronic kidney disease, stage 3a (CMS/HCC) Proteinuria COMPLEMENT C4 Routine 07/29/2025 9:38 AM CDT Chronic kidney disease, stage 3a (CMS/HCC) Proteinuria COMPLEMENT C3 Routine 07/29/2025 9:38 AM CDT Chronic kidney disease, stage 3a (CMS/HCC) Proteinuria ANTINUCLEAR ANTIBODY WI RFX Routine 07/29/2025 9:38 AM CDT Chronic kidney disease, stage 3a (CMS/HCC) Proteinuria US RETROPERITONEAL COMP Routine 07/29/20 25 9:32 AM CDT CKD stage 3a, GFR 45-59 ml/min (CMS/HCC) Proteinuria from Last 3 Months Results * (ABNORMAL) PROTEIN ELECTROPHORESIS URINE RANDOM (07/29/2025 9:44 AM CDT) PROTEIN URINE TOTAL RANDOM 207.0(H) <12.0 MG/DL 08/01/2025 1:26 PM CDT [facility] INTERPRETATION THIS URINE PEP WAS INTERPRETED BY 08/02/2025 11:32 AM CDT [facility] Comment: DR BENY BLAND THERE IS MODERATE RANDOM PROTEINURIA COMPOSED OF LOWER MOLECULAR WEIGHT PROTEINS (SELECTIVE PROTEINURIA). BENCE BLAKELY PROTEIN IS NOT DETECTED. URINE SPECIMEN / Unknown 07/29/2025 9:44 AM CDT Angeles Mancera MD URINE ORDERABLES Final Resul t Performing Organization Address [facility] Co de Phone Number [facility] [address] [place] [address], [place] [phone] * (ABNORMAL) PROTEIN CREAT RATIO URINE (07/29/2025 9:44 AM CDT) PROTEIN URINE TOTAL RANDOM 203.0(H) <11.9 MG/DL 07/29/2025 10:11 AM CDT [facility] CREATININE RANDOM (U) <13.0 MG/DL 07/29/2025 10:11 AM CDT [facility] Comment:REFERENCE RANGE NOT ESTABLISHED PROTEIN/CREATIN INE RATIO UNABLE TO CALCULATE 07/29/2025 10:11 AM CDT [facility] Comment:CALCULATED VALUE. ST ANDARD REFERENCE RANGE HAS NOT BEEN ESTABLISHED. URINE SPECIMEN / Unknown 07/29/2025 9:44 AM CDT Angeles Mancera MD URINE ORDERABLES Final Resul t Performing Organization Address City/[facility]/ZIP Co de Phone Number [facility] [address] [place] [address], [place] [phone] * ANCA SCREEN, MPO PR3 W/RFX TTR (07/29/2025 9:38 AM CDT) ANCA SCREEN Negative Negative 08/02/2025 9:39 PM CDT [facility] Comment: ANCA screen uses indirect immunofluorescence to detect antibodies to neutrophil cytoplasmic antigens. A positive screen reflexes to titer and pattern. Patterns include cytoplasmic (c-ANCA) and perinuclear (p-ANCA) both of which are associated with vasculitis, and atypical p-ANCA which is associated with inflammatory bowel disease and other disorders. MYELOPEROXIDASE AB <1.0 <1.0 AI 2024 9:39 PM CDT [facility] Comment: Value Interpretation <1.0 AI: No Antibody Detected >or=1.0 AI: Antibody Detected Autoantibodies to myeloperoxidase (MPO) are commonly associated with the following small-vessel vasculitides: microscopic polyangiitis, polyarteritis nodosa, Churg-Guy syndrome, necrotizing and crescentic glomerulonephritis and occasionally granulomatosis with polyangiitis (GPA, Ruslan's). The perinuclear IFA pattern, (p-ANCA) is based largely on autoantibody to myeloperoxidase which serves as the primary antigen. These autoantibodies are present in active disease. PROTEINASE-3 AB <1.0 <1.0 AI 9:39 PM CDT [facility] Comment: Value Interpretation <1.0 AI: No Antibody Detected >or=1.0 AI: Antibody Detected Autoantibodies to proteinase-3 (AL-3) are accepted as characteristic for granulomatosis with polyangiitis (GPA, Ruslan's), and are detectable in 95% of the histologically proven cases. The cytoplasmic IFA pattern, (c-ANCA), is based largely on autoantibody to AL-3 which serves as the primary antigen. These autoantibodies are present in active disease. Test Performed by [facility], Indexing [facility], [address] [place] [address] Beny Dill M.D., Ph.D., Director of Laboratories , CLIA [id number] 07/29/2025 9:38 AM CDT Angeles Mancera MD LABORATORY Final Result [facility] [address] [place] [address], [place] [phone] * ANTINUCLEAR ANTIBODY WI RFX (07/29/2025 9:38 AM CDT) NISHI <0.09 08/01/2025 12:32 PM CDT [facility] Comment: NEGATIVE: <0.7 RATIO NISHI PROFILE AND TITER NOT PERFORMED THE NISHI SCREEN TESTS FOR THE FOLLOWING ANTIBODIES BY EIA: SSA1 (RO), SSB1 (LA), HORNE, SCL70, JO1, CENTROMERE, ADDING MACHINE OPERATOR HISTONE MUST BE ORDERED SEPARATELY DNA (DS) ANTIBODY <0.6 IU/ML 12:32 PM CDT [facility] Comment: NEGATIVE: <10 IU/mL EQUIVOCAL: 10 to 15 IU/mL POSITIVE: >15 IU/mL THIS QUANTITATIVE ASSAY IS CALIBRATED TO THE [employer]'S WO/80 STANDARD. THE LEVEL OF dsDNA AUTOANTIBODY GERERALLY CORRELATES WITH THE LEVEL OF DISEASE ACTIVITY IN SYSTEMIC LUPUS ERYTHMATOSUS 07/29/2025 9:38 AM CDT Angeles Mancera MD LABORATORY Final Result Performing Organization Address City/[facility]/ZIP Co de Phone Number [facility] [address] [place] [address], [place] [phone] * COMPLEMENT C4 (07/29/2025 9:38 AM CDT) COMPLEMENT C4 31.9 10.0 - 40.0 MG/DL 07/29/2025 3:12 PM CDT [facility] 07/29/2025 9:38 AM CDT Angeles Mancera MD LABORATORY Final Result [facility] [address] [place] [address], [place] [phone] * COMPLEMENT C3 (07/29/2025 9:38 AM CDT) Pathologist [facility] COMPLEMENT C3 151.0 90.0 - 180.0 MG/DL 07/29/2025 3:12 PM CDT [facility] 07/29/2025 9:38 AM CDT Angeles Mancear MD LABORATORY Final Result [facility] [address] [place] [address], [id number] * ANTI-GBM (07/29/2025 9:38 AM CDT) Pathologist [facility] ANTI-GBM <1.0 <1.0 AI 08/03/2025 8:58 AM CDT [facility] Comment: Value Interpretation <1.0 AI: No Antibody Detected >or=1.0 AI: Antibody Detected Test Performed by [facility], Indexing [facility], [address] [place] [address] Beny Dill M.D., Ph.D., Director of Laboratories , [facility] [id number] 07/29/2025 9:38 AM CDT Angeles Mancera MD LABORATORY Final Result [facility] [address] [place] [address] , * (ABNORMAL) RENAL FUNCTION PANEL (07/29/2025 9:38 AM CDT) Pathologist [facility] SODIUM S/P/B 140 136 - 145 MMOL/L 07/29/2025 9:59 AM CDT [facility] POTASSIUM S/P/B 4.0 3.5 - 5.1 MMOL/L 07/29/2025 9:59 AM CDT [facility] CHLORIDE S/P/B 98 98 - 107 MMOL/L 07/29/2025 9:59 AM CDT [facility] CO2 34.1(H) 21.0 - 32.0 MMOL/L 07/29/2025 9:59 AM CDT [facility] GLUCOSE 96 70 - 99 MG/DL 07/29/2025 9:59 AM T [facility] Comment: FASTING GLUCOSE 100 TO 125 MG/DL IS CONSISTENT WITH IMPAIRED FASTING GLUCOSE. FASTING GLUCOSE >125 MG/DL IS CONSISTENT WITH DIABETES. RANDOM GLUCOSE >200 MG/DL WITH HYPERGLYCEMIC SYMPTOMS IS CONSISTENT WITH DIABETES. PER ADA GUIDELINES BUN 22 6 - 24 MG/DL 07/29/2025 9:59 AM T [facility] CREATININE S/P/B 1.23(H) 0.55 - 1.02 MG/DL 07/29/2025 9:59 AM T [facility] CALCIUM S/P/B 9.8 8.4 - 10.5 MG/DL 07/29/2025 9:59 AM T [facility] ALBUMIN S/P/B 3.4 3.4 - 5.0 G/DL 07/29/2025 9:59 AM T [facility] PHOSPHORUS 3.9 2.6 - 4.7 MG/DL 07/29/2025 9:59 AM T [facility] ANION GAP 7.9 5.0 - 15.0 MMOL/L 07/29/2025 9:59 AM T [facility] OSMOLALITY (CALC) 293 MOSM/KG 025 9:59 AM T [facility] Comment:REFERENCE RANGE NOT ESTABLISHED GFR ESTIMATE 50(L) >89 ML/MIN/1. 73 M2 07/29/2025 9:59 AM T [facility] GFR NOTES GFR REFERENCE S: 07/29/2025 9:59 AM T [facility] Comment: THE ESTIMATED GFR IS CALCULATED USING THE 2020 CKD-EPI EQUATION. THE FOLLOWING CATEGORIES FOR GRADING RENAL FUNCTION ARE RECOMMENDED BY THE INTERNATIONAL SOCIETY OF NEPHROLOGY (KDIGO 2012 CLINICAL PRACTICE GUIDELINE). G1,NORMAL OR HIGH: >89 ml/min/1.73 m2 G2,MILDLY DECREASED: 60-89 ml/min/1.73 m2 G3A,MILDLY TO MODERATELY DECREASED: 45-59 ml/min/1.73 m2 G3B,MODERATELY TO SEVERELY DECREASED: 30-44 ml/min/1.73 m2 G4,SEVERELY DECREASED: 15-29 ml/min/1.73 m2 G5,KIDNEY FAILURE: <15 ml/min/1.73 m2 07/29/2025 9:38 AM CDT us Angeles Mancera MD LABORATORY Final Result [facility] [address] [email or web address] [address], * PROTEIN, ELECTROPHORESIS (07/29/2025 9:38 AM CDT) TOTAL PROTEIN S/P/B 7.2 6.0 - 8.3 G/DL 08/01/2025 1:26 PM CDT [facility] ALBUMIN S/P/B 3.8 3.4 - 4.9 G/DL 08/01/2025 1:23 PM CDT [facility] [id number] S/P/B 0.4 0.2 - 0.4 G/DL 08/01/2025 1:23 PM CDT [facility] [id number] S/P/B 1.0 0.4 - 1.0 G/DL 08/01/2025 1:23 PM CDT [facility] BETA GLOBULIN S/P/B 1.0 0.5 - 1.2 G/DL 08/01/2025 1:23 PM CDT [facility] GAMMA GLOBULIN S/P/B 1.0 0.6 - 1.6 G/DL 08/01/2025 1:23 PM CDT [facility] ELECTROPHORESIS INTERPRETATION THIS SERUM PEP WAS INTERPRETED BY 08/02/2025 11:31 AM CDT [facility] Comment: DR BENY BLAND THE TOTAL SERUM PROTEIN IS NORMAL. ELECTROPHORESIS IDENTIFIES A MILD ELEVATION IN ALPHA 2 GLOBULIN (ACUTE PHASE REACTION). MONOCLONAL PROTEINS ARE NOT DETECTED. 07/29/2025 9:38 AM CDT us Angeles Mancera MD LABORATORY Final Result [facility] [address] [place] [address], [place] [phone] * US RETROPERITONEAL COMP (07/29/2025 9:32 AM CDT) Anatomical Region Laterality Modality Abdomen Ultrasound 07/29/2025 11:1 5 AM CDT Impressions 07/29/2025 11:20 AM CDT IMPRESSION: 1. Stable, unremarkable sonographic appearance of the kidneys. 2. Small left ureterocele. 3. No urinary bladder mass or calculus demonstrated. 4. Bladder volumes as described. Ordered By: ANGELES MANCERA Interpreted By: Gabe Huitron MD, 07/29/2025 11:15 AM Narrative 07/29/2025 11:20 AM CDT [address] [place] [address] Examination: Ultrasound of the kidneys and urinary bladder. Exam time: 0849 hours. Clinical history: Chronic kidney disease. Proteinuria. Comparison: Renal ultrasound, 12/03/2013 ([facility]). Technique: Grayscale and color Doppler images. Findings: The right kidney measures 10.7 x 5.3 x 5.1 cm. The left kidney measures 10.9 x 4.2 x 4.6 cm. Cortical thickness and echogenicity appear normal. Flow to both kidneys is documented on color Doppler. No renal mass or calculus is demonstrated. There is no hydronephrosis. Bilateral ureteral jets are demonstrated. There is a small left ureterocele, best appreciated on clip store images. No urinary bladder mass or calculus is demonstrated. The calculated prevoid bladder volume is approximately 234 mL. The calculated post void bladder volume is approximately 2 mL. Procedure Note Gabe Huitron MD - 07/29/2025 [facility] [address] [place] [address] Examination: Ultrasound of the kidneys and urinary bladder. Exam time: 0849 hours. Clinical history: Chronic kidney disease. Proteinuria. Comparison: Renal ultrasound, 12/03/2013 ([facility]). Technique: Grayscale and color Doppler images. Findings: The right kidney measures 10.7 x 5.3 x 5.1 cm. The left kidneymeasures 10.9 x 4.2 x 4.6 cm. Cortical thickness and echogenicity appearnormal. Flow to both kidneys is documented on color Doppler. No renal massor calculus is demonstrated. There is no hydronephrosis. Bilateralureteral jets are demonstrated. There is a small left ureterocele, bestappreciated on clip store images. No urinary bladder mass or calculus isdemonstrated. The calculated prevoid bladder volume is approximately 234mL. The calculated post void bladder volume is approximately 2 mL. IMPRESSION: 1. Stable, unremarkable sonographic appearance of the kidneys. 2. Small left ureterocele. 3. No urinary bladder mass or calculus demonstrated. 4. Bladder volumes as described. 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 Tracheal aspirate (RG) 03/13/2022 03/13/2022 Insurance MEDICAID MEDICAID MED [facility] [employer] Advance Directives Documents on File Type Date Recorded Patient Setter Cold Rolling Machine Expl anation Advance Directives and Living Will 03/08/2022 8:06 AM Power of Field Support Engineer 04/10/2022 12:05 PM Irma Oropeza, [employer]-Healthcare Agent; Paola Palencia, 1st alternate [employer]-daughter; Advance Directives and Living Will 03/29/2017 SHORT FORM POWER OF SHREDDER TENDER Advance Directives and Living Will 03/29/2017 SHORT FORM POWER OF SHREDDER TENDER Advance Directives and Living Will 01/09/2017 SHORT FORM POWER OF SHREDDER TENDER Advance Directives and Living Will 01/09/2017 SHORT FORM POWER OF SHREDDER TENDER Advance Directives and Living Will 04/29/2016 SHORT FORM POWER OF SHREDDER TENDER Advance Directives and Living Will 04/29/2016 SHORT FORM POWER OF SHREDDER TENDER * DNR (Latest Code Status on File) Date Activated Date Inactivated Comments 03/10/2022 5:23 AM 03/16/2022 3:17 PM * Full Code Date Activated Date Inactivated Comments 03/10/2022 4:43 AM 03/10/2022 5:23 AM * Full Code Date Activated Date Inactivated Comments 03/06/2022 8:28 PM 03/08/2022 3:41 PM Healthcare Agents on File Name Relationship Healthcare Agent Relationship Communication Irma Oropeza ([facility] Healthcare Agent Health Care Agent Paola Douglaser Daughter First Alternate Health Care Agent Care Teams Freight Dispatcher Relationship Specialty Start Date End Date Guy Brooks DO [address] [place] [address] PCP - General FAMILY PRACTICE 03/06/22 Oneil Santoyo MD CARDIOVASCULAR DISEASE 05/07/16 Lilia Weber MD [address] [place] [address] [place] Vice President Pharmacy CARDIOVASCULAR DISEASE 04/09/22 Kristopher Hawk MD [address] [place] [address] Consulting Physician PULMONARY DISEASE 04/09/22
--- OUTSIDE RECORDS SUMMARY | 2025-08-05 12:38 | XMS_ITS | Encounter Summary ---
Author Organization [facility] Address [address] [place] [address] Care Team Providers Care Health Information Tech Name Role Phone Steffen Reeves MD Primary Care Provider [phone] Oneil Santoyo MD Unavailable Unavailab Guy Blum DO Primary Care Provider [phone] Lilia Weber MD Unavailable Kristopher Hawk MD Unavailable [phone] Encounter Details Date Type Department Care Team (Late st Contact Info) Description 05/08/2016 Abstract [facility] AT [address] [address] Oneil Santoyo MD Social History Tobacco Use Types Packs/Day Years Used Date Smoking Tobacco: Smoker, Current Status Unknown Alcohol Use Standard Drinks/Week Comments No 0 (1 standard drink = 0.6 oz pur e alcohol) Comments Unknown Sex and Gender Information Value Date Recorded Sex Assigned at Female 11/08/2024 10:07 AM LOCOMOTIVE SUPERVISOR Legal Sex Female 9:56 PM CDT Gender Identity Not on file Sexual Orientation Not on file 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 [employer] Not on file Not on file Not on file documented as of this encounter Plan of Treatment Upcoming Encounters Date Type Department Care Team (Late st Contact Info) Description 08/29/2025 9:00 AM LOCOMOTIVE SUPERVISOR Office Visit [facility] [place] [address] Lilia Weber MD [address] [place] [address] documented as of this encounter Visit Diagnoses [...] documented as of this encounter Care Teams Health Information Tech Relationship Specialty Start Date End Date Steffen Reeves MD [address] [place] [address] PCP - General FAMILY PRACTICE 05/07/16 03/05/22 Guy Brooks DO [address] [place] [address] PCP - General FAMILY PRACTICE 03/06/22 Oneil Santoyo MD [address] [place] [address] CARDIOVASCULAR DISEASE 05/07/16 Lilia Weber MD [address] [place] [address] [place] Acoustical Tile Drill Press Operator CARDIOVASCULAR DISEASE 04/09/22 Kristopher Hawk MD [address] [place] [address] Consulting Physician PULMONARY DISEASE 04/09/22 documented as of this encounter
[2025-08-05 12:43] LABS: Alanine Aminotransferase 43 U/L (6-35); Albumin Level 4.4 g/dL (3.5-5.1); Alkaline Phosphatase 121 U/L (38-126); Anion Gap 13 mmol/L (4-12); Aspartate Amino Transferase 59 U/L (14-36); Bilirubin,Total 1.0 mg/dL (0.2-1.3); Blood Urea Nitrogen 48 mg/dL (7-17); Calcium 9.6 mg/dL (8.4-10.2); Carbon Dioxide 29 mmol/L (22-30); Chloride 99 mmol/L (98-107); Estimated CRCL calculation 22 ml/min; Estimated Glomerular Filt Rate 25; Glucose 188 mg/dL (65-110); Magnesium 2.3 mg/dL (1.6-2.3); Osmolality Calculated 309 mOsm/kg (285-295); Potassium 5.6 mmol/L (3.4-5.0); Sodium 141 mmol/L (137-145); Total Protein 8.8 g/dL (6.3-8.2)
[2025-08-05] MEDS: FUROSEMIDE INJ 40 MG/4 ML VIAL 60 MG IV PUSH (12:49)
[2025-08-05 12:54] LABS: NT Pro B Type Natriuretic Pept 27500 pg/mL (19.9-100)
[2025-08-05 12:55] LABS: Troponin I 0.183 ng/mL (0.000-0.034)
[2025-08-05 13:28] LABS: Influenza A QL RT-PCR Negative (Negative); Influenza B QL RT-PCR Negative (Negative); RSV RNA, RT-PCR Negative (Negative); SARS-CoV-2 RNA PCR Negative (Negative)
[2025-08-05] MEDS: INSULIN HUMAN REGULAR (*BKC) 1,000 UNITS/10 ML VIAL 10 UNITS IV PUSH (13:39)
[2025-08-05] MEDS: SODIUM BICARBONATE 8.4% 50 MEQ/50 ML SYRINGE IV PUSH (13:39)
[2025-08-05] MEDS: DEXTROSE 50% 25 GM/50 ML SYRINGE IV PUSH (13:39)
--- NOTE | 2025-08-05 13:53 | PC.NURSE ---
dr tobias in room with pt and family discussing plan of care.
--- NOTE | 2025-08-05 13:55 | PC.NURSE ---
1354 resp staff notified pt to go to ct. 1356 staff here to switch to nasal cannula for ct scan.
--- NOTE | 2025-08-05 13:59 | PC.NURSE ---
pt to xray department via stretcher for ct scan chest.
[2025-08-05 14:26] LABS: Add Urine Microscopic? YES; Appearance Urine Sl Cloudy (Clear); Glucose Urine UA Trace (Negative); Leukocyte Esterase Ur 2+ LEU/UL (Negative); Nitrate Urine Negative (Negative); Specific Grav Ur 1.025 (1.010-1.020)
[2025-08-05] MEDS: levoFLOXacin 500 MG/D5W 100 ML 500 MG/100 ML BAG 100 MG IVPB (15:10)
[2025-08-05 17:02] LABS: Troponin I 0.211 ng/mL (0.000-0.034)
--- NOTE | 2025-08-07 14:18 | PC.NURSE ---
FINAL URINE CULTURE POSITIVE FOR GROUP B STREPTOCOCCUS PT GIVEN LEVAQUIN 500MG IVPB IN ER AND PT TRANSFERED TO [facility] PTER DR JEFFERSON NO FURTHER ORDER NEEDED AT THIS TIME
--- NOTE | 2025-08-08 12:24 | PC.NURSE ---
BLOOD CULTURE PRELIMINARY RESULT: NO GROWTH. WAITING ON FINAL RESULTS AT THIS TIME.
--- NOTE | 2025-08-09 13:13 | PC.NURSE ---
PRELIMINARY BLOOD CULTURE RESULTS: NO GROWTH IN 48 HOURS. WAITING ON FINAL RESULTS.
--- NOTE | 2025-08-12 15:07 | PC.NURSE ---
blood culture final no growth
== END 2025-08-05 17:51 | disposition short-term general hospital (02) ==
PROVIDERS: Emergency Provider Emergency Medicine; PCP Family Medicine
DX: I12.9 Hypertensive chronic kidney disease with stage 1 through stage 4 chronic kidney disease, or unspecified chronic kidney disease (principal); N18.9 Chronic kidney disease, unspecified; N17.9 Acute kidney failure, unspecified; R79.1 Abnormal coagulation profile; E87.5 Hyperkalemia; J96.01 Acute respiratory failure with hypoxia; J69.0 Pneumonitis due to inhalation of food and vomit; J44.9 Chronic obstructive pulmonary disease, unspecified; E11.22 Type 2 diabetes mellitus with diabetic chronic kidney disease; F17.210 Nicotine dependence, cigarettes, uncomplicated
CPT/HCPCS: 36415; 36600; 71045; 71250; 80053; 81001; 82805; 83605; 83735; 83880; 84484; 85025; 87086; 87637; 93005; 94640; 96365; 96375; 99285; J1815; J1938; J1956; J2919

== ENCOUNTER 2025-08-05 18:29 | Inpatient (IN) | payer MEDICARE, MEDICAID, SELFPAY ==
[2025-08-05] VITALS (7 sets, daily range): BP systolic 149–177; BP diastolic 80–99; PULSE 58–86; RESP 20–27; TEMP 36.3–36.4; O2SAT 90–99; BMI 27.0
--- NOTE | ~2025-08-05 | XR_ITS ---
Examination: XR chest 1V portable Clinical History: Respiratory failure Comparison: 1 day prior Technique: Portable AP Findings: Cardiomegaly. Diffuse interstitial markings. Right middle lobe atelectasis. No acute bony abnormality. IMPRESSION: 1. Mild worsening interstitial pulmonary edema and/or pneumonitis. 2. Right basilar aspiration pneumonia poorly seen on chest x-ray as compared to CT, as is right middle lobe atelectasis. Reviewed, dictated and finalized at location R. IMPRESSION: 1. Mild worsening interstitial pulmonary edema and/or pneumonitis. 2. Right basilar aspiration pneumonia poorly seen on chest x-ray as compared t o CT, as is right middle lobe atelectasis.
--- NOTE | 2025-08-05 18:26 | ADMGEN ---
This patient, Patty Orozco, was admitted to IMU Room 200-01@ 1826. Patient/family oriented to hospital policies and general routines including ID bracelet, bed and alarms, visiting hours, pain management, procedures, bathroom and other care routines, personal items, smoking policy, room service/diet, and visiting hours. Information on how to activate the Rapid Response Team has been discussed. Patient/Family are encouraged to report perceived risks to care and to ask questions if they do not understand what they are told or what they should do.
--- OUTSIDE RECORDS SUMMARY | 2025-08-05 18:34 | XMS_ITS | Encounter Summary ---
Author Organization [facility] Address [address] [place] [address] Care Team Providers Care Dock Supervisor Name Role Phone Steffen Reeves MD Primary Care Provider [phone] Oneil Santoyo MD Unavailable Unavailab Guy Blum DO Primary Care Provider [phone] Lilia Weber MD Unavailable Kristopher Hawk MD Unavailable [phone] Encounter Details Date Type Department Care Team (Late st Contact Info) Description 03/20/2019 Abstract [facility] [address] [place] [address] , Generic MD Enedelia Social History Tobacco Use Types Packs/Day Years Used Date Smoking Tobacco: Every Day Alcohol Use Standard Drinks/Week Comments No 0 (1 standard drink = 0.6 oz pur e alcohol) Comments Unknown Sex and Gender Information Value Date Recorded Sex Assigned at Female 11/08/2024 10:07 AM JAVASCRIPT APPLICATION DEVELOPER Legal Sex Female 9:56 PM CDT Gender Identity Not on file Sexual Orientation Not on file Occupation Industry Job Start Date Job End Date disabled Not on file Not on file Not on file documented as of this encounter Plan of Treatment Upcoming Encounters Date Type Department Care Team (Late st Contact Info) Description 08/29/2025 9:00 AM JAVASCRIPT APPLICATION DEVELOPER Office Visit [facility] [place] [address] Lilia Weber MD [address] [place] [address] documented as of this encounter Visit Diagnoses [...] documented as of this encounter Care Teams Dock Supervisor Relationship Specialty Start Date End Date Steffen Reeves MD [address] [place] [address] PCP - General FAMILY PRACTICE 05/07/16 03/05/22 Guy Brooks DO [address] [place] [address] PCP - General FAMILY PRACTICE 03/06/22 Oneil Santoyo MD [address] [place] [address] CARDIOVASCULAR DISEASE 05/07/16 Lilia Weber MD [address] [place] [address] [place] Plsql Developer CARDIOVASCULAR DISEASE 04/09/22 Kristopher Hawk MD [address] [place] [address] Consulting Physician PULMONARY DISEASE 04/09/22 documented as of this encounter
--- OUTSIDE RECORDS SUMMARY | 2025-08-05 18:35 | XMS_ITS | Clinical Summary ---
Author Organization [facility] Address [address] [place] [address] Care Team Providers Care Control Panel Tester Name Role Phone Oneil Santoyo MD Unavailable Unavailab Guy Blum DO Primary Care Provider Lilia Weber MD Unavailable Kristopher Hawk MD Unavailable [phone] Allergies No known active allergies Medications [...] [facility] [address] [place] [address] Angeles Mancera MD Discharge Disposition: Home or Self Care (Routine Discharge) 07/29/2025 8:41 AM CDT - 07/29/2025 8:43 AM CDT Hospital Encounter [facility] [address] [place] [address] Angeles Mancera MD Discharge Disposition: Home or Self Care (Routine Discharge) 07/29/[address] [facility] [address] [place] [address] Angeles Mancera MD 07/29/2025 Travel 07/06/2025 Telephone [facility] [address] [place] [address] Lilia Weber MD Reschedule 07/04/2025 Orders Only [facility] [address] [place] [address] Lilia Weber MD 06/29/2025 Telephone [facility] [address] [place] [address] Lilia Weber MD Appointment Reminder 06/01/2025 Telephone [facility] [address] [place] [address] Lilia Weber MD Reschedule 05/20/2025 Telephone [facility] [address] [place] [address] Lilia Weber MD Medication Request from Last [...] Sex Assigned at Female 11/08/2024 10:07 AM ACCOUNT DEVELOPMENT SPECIALIST Legal Sex Female 9:56 PM CDT Gender Identity Not on file Sexual Orientation Not on file Occupation Industry Job Start Date Job End Date disabled Not on file Not on file Not on file Last Filed Vital Signs Vital Sign Reading Time Taken Comments Blood Pressure 148/81 11/08/2024 1:46 PM ACCOUNT DEVELOPMENT SPECIALIST Pulse 60 11/08/2024 1:46 PM ACCOUNT DEVELOPMENT SPECIALIST Temperature 37 C (98.6 F) 03/16/2022 8:48 AM CDT Respiratory Rate 20 11/08/2024 1:46 PM ACCOUNT DEVELOPMENT SPECIALIST Oxygen Saturation 92% 11/08/2024 1:46 PM ACCOUNT DEVELOPMENT SPECIALIST Inhaled Oxygen Concentration - - Weight 64 kg (141 lb) 11/08/2024 1:46 PM ACCOUNT DEVELOPMENT SPECIALIST Height 157.5 cm (5' 2) 11/08/2024 1:46 PM ACCOUNT DEVELOPMENT SPECIALIST Body Mass Index 25.79 11/08/2024 1:46 PM ACCOUNT DEVELOPMENT SPECIALIST Plan of Treatment Upcoming Encounters Date Type Department Care Team (Late st Contact Info) Description 08/29/2025 9:00 AM ACCOUNT DEVELOPMENT SPECIALIST Office Visit [facility] [address] [place] [address] Lilia Weber MD [address] [place] [address] Health Maintenance Due Date Last Done Comments [...] home upon discharge General No Celeste Miramontes order entry Procedure Name Priority Date/Time Associated Diagnosis Comments [...] 207.0(H) <12.0 MG/DL 08/01/2025 1:26 PM CDT [facility] INTERPRETATION THIS URINE PEP WAS INTERPRETED BY 08/02/2025 11:32 AM CDT [facility] Comment: DR BENY BLAND THERE IS MODERATE RANDOM PROTEINURIA COMPOSED OF LOWER MOLECULAR WEIGHT PROTEINS (SELECTIVE PROTEINURIA). BENCE BLAKELY PROTEIN IS NOT DETECTED. URINE SPECIMEN / Unknown 07/29/2025 9:44 AM CDT Agneles Mancera MD URINE ORDERABLES Final Resul t Performing Organization Address [facility] Co de Phone Number [facility] [address] [place] [address], [place] [phone] * (ABNORMAL) PROTEIN CREAT RATIO URINE (07/29/2025 9:44 AM CDT) PROTEIN URINE TOTAL RANDOM 203.0(H) <11.9 MG/DL 07/29/2025 10:11 AM CDT [facility] CREATININE RANDOM (U) <13.0 MG/DL 07/29/2025 10:11 AM CDT [facility] Comment:REFERENCE RANGE NOT ESTABLISHED PROTEIN/CREATIN INE RATIO UNABLE TO CALCULATE 07/29/2025 10:11 AM CDT [facility] Comment:CALCULATED VALUE. ST ANDARD REFERENCE RANGE HAS NOT BEEN ESTABLISHED. URINE SPECIMEN / Unknown 07/29/2025 9:44 AM CDT Angeles Mancera MD URINE ORDERABLES Final Resul t Performing Organization Address City/[facility]/ZIP Co de Phone Number [facility] [address] [place] [address], [place] [phone] * ANCA SCREEN, MPO PR3 W/RFX TTR (07/29/2025 9:38 AM CDT) ANCA SCREEN Negative Negative 08/02/2025 9:39 PM CDT [employer] [facility] Comment: ANCA screen uses indirect immunofluorescence to detect antibodies to neutrophil cytoplasmic antigens. A positive screen reflexes to titer and pattern. Patterns include cytoplasmic (c-ANCA) and perinuclear (p-ANCA) both of which are associated with vasculitis, and atypical p-ANCA which is associated with inflammatory bowel disease and other disorders. MYELOPEROXIDASE AB <1.0 <1.0 AI 2024 9:39 PM CDT [facility] Comment: Value Interpretation <1.0 AI: [...] AB <1.0 <1.0 AI 9:39 PM CDT [facility] Comment: Value Interpretation <1.0 AI: No Antibody Detected >or=1.0 AI: Antibody Detected Autoantibodies to proteinase-3 (NJ-3) are accepted as characteristic for granulomatosis with polyangiitis (GPA, Ruslan's), and are detectable in 95% of the histologically proven cases. The cytoplasmic IFA pattern, (c-ANCA), is based largely on autoantibody to NJ-3 which serves as the primary antigen. These autoantibodies are present in active disease. Test Performed by [facility], [facility], [address] [place] [address] Beny Dill M.D., Ph.D., Director of Laboratories , CLIA [id number] 07/29/2025 9:38 AM CDT Angeles Mancera MD LABORATORY Final Result [employer] [facility] [address] [place] [address], [place] [phone] * ANTINUCLEAR ANTIBODY WI RFX (07/29/2025 9:38 AM CDT) NISHI <0.09 08/01/2025 12:32 PM CDT [facility] Comment: NEGATIVE: <0.7 RATIO NISHI PROFILE AND TITER NOT PERFORMED THE NISHI SCREEN TESTS FOR THE FOLLOWING ANTIBODIES BY EIA: SSA1 (RO), SSB1 (LA), HORNE, SCL70, JO1, CENTROMERE, CLERGY MEMBER HISTONE MUST BE ORDERED SEPARATELY DNA (DS) ANTIBODY <0.6 IU/ML 12:32 PM CDT [facility] Comment: NEGATIVE: <10 IU/mL EQUIVOCAL: 10 to 15 IU/mL POSITIVE: >15 IU/mL THIS QUANTITATIVE ASSAY IS CALIBRATED TO THE [employer]'S WO/80 STANDARD. THE LEVEL OF dsDNA AUTOANTIBODY GERERALLY CORRELATES WITH THE LEVEL OF DISEASE ACTIVITY IN SYSTEMIC LUPUS ERYTHMATOSUS 07/29/2025 9:38 AM CDT Angeles Mancera MD LABORATORY Final Result Performing Organization Address City/[facility]/ZIP Co de Phone Number [facility] [address] [place] [address], [place] [phone] * COMPLEMENT C4 (07/29/2025 9:38 AM CDT) COMPLEMENT C4 31.9 10.0 - 40.0 MG/DL 07/29/2025 3:12 PM CDT [facility] 07/29/2025 9:38 AM CDT Angeles Mancera MD LABORATORY Final Result [facility] [address] [place] [address], [place] [phone] * COMPLEMENT C3 (07/29/2025 9:38 AM CDT) Pathologist [facility] COMPLEMENT C3 151.0 90.0 - 180.0 MG/DL 07/29/2025 3:12 PM CDT [facility] 07/29/2025 9:38 AM CDT Angeles Mancera MD LABORATORY Final Result [facility] [address] [place] [address], [id number] * ANTI-GBM (07/29/2025 9:38 AM CDT) Pathologist [facility] ANTI-GBM <1.0 <1.0 AI 08/03/2025 8:58 AM CDT [employer] [facility] Comment: Value Interpretation <1.0 AI: No Antibody Detected >or=1.0 AI: Antibody Detected Test Performed by [facility] [employer], [facility], [address] [place] [address] Beny Dill M.D., Ph.D., Director of Laboratories , [facility] [id number] 07/29/2025 9:38 AM CDT Angeles Mancera MD LABORATORY Final Result [facility] [address] [place] [address] , * (ABNORMAL) RENAL FUNCTION PANEL (07/29/2025 9:38 AM CDT) Pathologist [facility] SODIUM S/P/B 140 136 - 145 MMOL/L 07/29/2025 9:59 AM CDT [facility] POTASSIUM S/P/B 4.0 3.5 - 5.1 MMOL/L 07/29/2025 9:59 AM CDT [facility] CHLORIDE S/P/B 98 98 - 107 MMOL/L 07/29/2025 9:59 AM CDT [facility] CO2 34.1(H) 21.0 - 32.0 MMOL/L 07/29/2025 9:59 AM CDT [facility] GLUCOSE 96 70 - 99 MG/DL 07/29/2025 9:59 AM T [facility] Comment: FASTING GLUCOSE 100 TO 125 MG/DL IS CONSISTENT WITH IMPAIRED FASTING GLUCOSE. FASTING GLUCOSE >125 MG/DL IS CONSISTENT WITH DIABETES. RANDOM GLUCOSE >200 MG/DL WITH HYPERGLYCEMIC SYMPTOMS IS CONSISTENT WITH DIABETES. PER ADA GUIDELINES BUN 22 6 - 24 MG/DL 07/29/2025 9:59 AM T [facility] CREATININE S/P/B 1.23(H) 0.55 - 1.02 MG/DL 07/29/2025 9:59 AM T [facility] CALCIUM S/P/B 9.8 8.4 - 10.5 MG/DL 07/29/2025 9:59 AM T [facility] ALBUMIN S/P/B 3.4 3.4 - 5.0 G/DL 07/29/2025 9:59 AM T [facility] PHOSPHORUS 3.9 2.6 - 4.7 MG/DL 07/29/2025 9:59 AM T [facility] ANION GAP 7.9 5.0 - 15.0 MMOL/L 07/29/2025 9:59 AM T [facility] OSMOLALITY (CALC) 293 MOSM/KG 025 9:59 AM T [facility] Comment:REFERENCE RANGE NOT ESTABLISHED GFR ESTIMATE 50(L) >89 ML/MIN/1. 73 M2 07/29/2025 9:59 AM T [facility] GFR NOTES GFR REFERENCE S: 07/29/2025 9:59 AM T [facility] Comment: THE ESTIMATED GFR IS CALCULATED [...] us Angeles Mancera MD LABORATORY Final Result [facility] [address] [place] [address], * PROTEIN, ELECTROPHORESIS (07/29/2025 9:38 AM CDT) TOTAL PROTEIN S/P/B 7.2 6.0 - 8.3 G/DL 08/01/2025 1:26 PM CDT [facility] ALBUMIN S/P/B 3.8 3.4 - 4.9 G/DL 08/01/2025 1:23 PM CDT [facility] [id number] S/P/B 0.4 0.2 - 0.4 G/DL 08/01/2025 1:23 PM CDT [facility] [id number] S/P/B 1.0 0.4 - 1.0 G/DL 08/01/2025 1:23 PM CDT [facility] BETA GLOBULIN S/P/B 1.0 0.5 - 1.2 G/DL 08/01/2025 1:23 PM CDT [facility] GAMMA GLOBULIN S/P/B 1.0 0.6 - 1.6 G/DL 08/01/2025 1:23 PM CDT [facility] ELECTROPHORESIS INTERPRETATION THIS SERUM PEP WAS INTERPRETED BY 08/02/2025 11:31 AM CDT [facility] Comment: DR BENY BLAND THE TOTAL SERUM PROTEIN IS NORMAL. ELECTROPHORESIS IDENTIFIES A MILD ELEVATION IN ALPHA 2 GLOBULIN (ACUTE PHASE REACTION). MONOCLONAL PROTEINS ARE NOT DETECTED. 07/29/2025 9:38 AM CDT us Angeles Mancera MD LABORATORY Final Result [facility] [address] [place] [address], [place] [phone] * US RETROPERITONEAL COMP (07/29/2025 9:32 AM [...] 11:15 AM Narrative 07/29/2025 11:20 AM CDT [address] [place] [address] Examination: Ultrasound of the kidneys and urinary bladder. Exam time: 0849 hours. Clinical history: Chronic kidney disease. Proteinuria. Comparison: Renal ultrasound, 12/03/2013 ([facility]). Technique: Grayscale and color Doppler images. [...] Procedure Note Gabe Huitron MD - 07/29/2025 [facility] [address] [place] [address] Examination: Ultrasound of the kidneys and urinary bladder. Exam time: 0849 hours. Clinical history: Chronic kidney disease. Proteinuria. Comparison: Renal ultrasound, 12/03/2013 ([facility] Technique: Grayscale and color Doppler images. [...] 03/13/2022 03/13/2022 Insurance MEDICAID MEDICAID MED [employer] [facility] MEDICARE SOLUTIONS Advance Directives Documents on File Type Date Recorded Patient Gravity Flow Irrigator Expl anation Advance Directives and Living Will 03/08/2022 8:06 AM Power of Tavern Car Attendant 04/10/2022 12:05 PM Irma Oropeza, HCA-Healthcare Agent; Paola Palencia, 1st alternate HCA-daughter; Advance Directives and Living Will 03/29/2017 SHORT FORM POWER OF STATISTICAL MODELER Advance Directives and Living Will 03/29/2017 SHORT FORM POWER OF STATISTICAL MODELER Advance Directives and Living Will 01/09/2017 SHORT FORM POWER OF STATISTICAL MODELER Advance Directives and Living Will 01/09/2017 SHORT FORM POWER OF STATISTICAL MODELER Advance Directives and Living Will 04/29/2016 SHORT FORM POWER OF STATISTICAL MODELER Advance Directives and Living Will 04/29/2016 SHORT FORM POWER OF STATISTICAL MODELER * DNR (Latest Code Status on File) Date Activated Date Inactivated Comments 03/10/2022 5:23 AM 03/16/2022 3:17 PM * Full Code Date Activated Date Inactivated Comments 03/10/2022 4:43 AM 03/10/2022 5:23 AM * Full Code Date Activated Date Inactivated Comments 03/06/2022 8:28 PM 03/08/2022 3:41 PM Healthcare Agents on File Name Relationship Healthcare Agent Relationship Communication Irma Oropeza ([facility]) Healthcare Agent Health Care Agent Paola Douglaser Daughter First Alternate Health Care Agent Care Teams Control Panel Tester Relationship Specialty Start Date End Date Guy Brooks DO [address] [place] [address] PCP - General FAMILY PRACTICE 03/06/22 Oneil Santoyo MD CARDIOVASCULAR DISEASE 05/07/16 Lilia Weber MD [address] [place] [address] [place] Lead Software Tester CARDIOVASCULAR DISEASE 04/09/22 Kristopher Hawk MD [address] [place] [address] Consulting Physician PULMONARY DISEASE 04/09/22
--- OUTSIDE RECORDS SUMMARY | 2025-08-05 18:35 | XMS_ITS | Encounter Summary ---
Author Organization [facility] Address [address] [place] [address] Care Team Providers Care Fiberglass Pipe Covering Supervisor Name Role Phone Steffen Reeves MD Primary Care Provider [phone] Oneil Santoyo MD Unavailable Unavailab Guy Blum DO Primary Care Provider [phone] Lilia Weber MD Unavailable Kristopher Hawk MD Unavailable [phone] Encounter Details Date Type Department Care Team (Late st Contact Info) Description 05/08/2016 Abstract [facility] [address] [address] Oneil Santoyo MD Social History Tobacco Use Types Packs/Day Years Used Date Smoking Tobacco: Smoker, Current Status Unknown Alcohol Use Standard Drinks/Week Comments No 0 (1 standard drink = 0.6 oz pur e alcohol) Comments Unknown Sex and Gender Information Value Date Recorded Sex Assigned at Female 11/08/2024 10:07 AM COMMUNITY MUSIC THERAPIST Legal Sex Female 9:56 PM CDT Gender Identity Not on file Sexual Orientation Not on file 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 file Not on file documented as of this encounter Plan of Treatment Upcoming Encounters Date Type Department Care Team (Late st Contact Info) Description 08/29/2025 9:00 AM COMMUNITY MUSIC THERAPIST Office Visit [facility] [place] [address] Lilia Weber MD [address] [place] [address] documented as of this encounter Visit Diagnoses [...] documented as of this encounter Care Teams Fiberglass Pipe Covering Supervisor Relationship Specialty Start Date End Date Steffen Reeves MD [address] [place] [address] PCP - General FAMILY PRACTICE 05/07/16 03/05/22 Guy Brooks DO [address] [place] [address] PCP - General FAMILY PRACTICE 03/06/22 Oneil Santoyo MD [address] [place] [address] CARDIOVASCULAR DISEASE 05/07/16 Lilia Weber MD [address] [place] [address] [employer] Computer Science Teacher CARDIOVASCULAR DISEASE 04/09/22 Kristopher Hawk MD [address] [place] [address] Consulting Physician PULMONARY DISEASE 04/09/22 documented as of this encounter
--- NOTE | 2025-08-05 18:36 | PM.IMHP ---
H&P: HPI History of Present Illness Date/Time: 08/05/25 18:36 Chief Complaint: Shortness of Breath Narrative: 60 y/o F with PMH of COPD, HTN, DM, tobacco use, chronic respiratory failure on supplemental O2 (3L NC), and CKD The patient presented to [facility] on 08/05 for further evaluation of shortness of breath. At that time she reported shortness of breath and lower extremity edema. She reports this has been ongoing for the past 3 weeks. Shortness of breath however significantly worsened in the last 3 days which prompted her to seek evaluation today. She denies any episodes of emesis in the last few weeks but has had some nausea and dry heaving in the last week. She denies accompanying fever, chills, vomiting, chest pain, weight gain, or abdominal pain. Denies history of dysphagia. Denies increased need for her home inhalers or nebulizers. Patient has a smoking history, 0.5 PPD x 50 years. Has reduced how much she has been smoking in the last few days. Initial VS at presentation: 97.6? F, HR 62, RR 24, 80% on 3 L nasal cannula, 129/97. Now 100% on BiPAP. ED workup showed: No leukocytosis, hemoglobin 16.3, ABG showed mild acidosis, mild hypercapnia, and low O2 saturations., K 5.6, creatinine 2.01 and GFR 25 (previously 1.05 and GFR 53 on 04/07/2025), glucose 188, lactic 4.7 (repeat 4.0), initial troponin 0.183, BNP 93370, and UA equivocal for UTI as there are few epithelial cells. Viral PCR negative. Review of Systems Review of Systems: All systems reviewed & are unremarkable except as noted in HPI and below [facility] Past Medical History Medical History GERD (gastroesophageal reflux disease) Diverticulitis Asthma CVA (cerebral vascular accident) Cigarette nicotine dependence Sleep apnea Hypoxemic respiratory failure, chronic CKD stage 3a, GFR 45-59 ml/min Eczema Hypertension associated with type 2 diabetes mellitus COPD (chronic obstructive pulmonary disease) Surgical History Surgical History History of tubal ligation 1986 Family History Family History Mother Breast cancer Father Diabetes mellitus Emphysema, unspecified Other Cerebrovascular accident Heart disease Social History Social History Smoking packs per day: 1 Smoking cigarettes per day: 20.0 Years smoked: 45 Smoking pack-years: 45.00 Smoking status: Current every day smoker Tobacco type: cigarettes Second hand tobacco smoke exposure: Yes Alcohol intake: never Substance use: never Substance use type: does not use Lack of Transportation: No Lack of Food: Never True Current Housing: I Have Housing Concerned About Future Housing: No Difficulty Paying Gas/Electric Bills: No Difficulty Paying for Meds: No Currently Unemployed: No Education: Decline to Answer Difficulty w/ Childcare or Family Care: No Living arrangements: alone Additional living arrangements comments: . 4 Children. Occupation/Education: retired Additional occupation/education comments: Prior Occupation: [employer] Gender identity (if verbalized by the patient): Female Spiritual care concerns: No Meds Home Medications and Allergies Home Medications ?Medication ?Instructions ?Recorded ?Confirmed ?Type ipratropium bromide 18 1 puff inhalation BID 03/19/22 08/05/25 History mcg/actuation aerosol inhaler albuterol sulfate 90 mcg/actuation See Rx Instructions .Route 06/28/24 08/05/25 Rx aerosol inhaler (Ventolin HFA) .COMPLEX #18 grams mecobalamin (vitamin B12) 1,000 1,000 mcg PO DAILY 01/05/25 08/05/25 History mcg chewable tablet (B12 Active) montelukast 10 mg tablet See Rx Instructions .Route 04/04/25 08/05/25 Rx .COMPLEX #90 tabs ondansetron HCl 4 mg tablet 4 mg PO Q8H PRN nausea and 04/07/25 08/05/25 Rx vomiting #20 tabs ipratropium bromide 17 See Rx Instructions .Route 05/02/25 08/05/25 Rx mcg/actuation HFA aerosol inhaler .COMPLEX #12.9 grams (Atrovent HFA) spironolactone 25 mg tablet See Rx Instructions .Route 05/16/25 08/05/25 Rx .COMPLEX #90 tabs lisinopril 5 mg tablet 5 mg PO DAILY #90 tabs 05/19/25 08/05/25 Rx fluticasone furoate 200 See Rx Instructions .Route 05/30/25 08/05/25 Rx mcg-vilanterol 25 mcg/dose .COMPLEX #60 grams inhalation powder (Breo Ellipta) furosemide 20 mg tablet See Rx Instructions .Route 05/30/25 08/05/25 Rx .COMPLEX #90 tabs lovastatin 40 mg tablet See Rx Instructions .Route 06/21/25 08/05/25 Rx .COMPLEX #90 tabs clopidogrel 75 mg tablet See Rx Instructions .Route 07/11/25 08/05/25 Rx .COMPLEX #90 tabs digoxin 125 mcg (0.125 mg) tablet See Rx Instructions .Route 07/18/25 08/05/25 Rx .COMPLEX #90 tabs gabapentin 300 mg capsule See Rx Instructions .Route 07/25/25 08/05/25 Rx .COMPLEX #360 caps metformin 1,000 mg tablet See Rx Instructions .Route 07/25/25 08/05/25 Rx .COMPLEX #180 tabs Allergies Allergy/AdvReac Type Severity Reaction Status Date / Time No Known Allergies Allergy Verified 08/05/25 19:08 Exam Const: General: comfortable and no acute distress Other: , female, ill-appearing but nontoxic appearance HENMT: Face/Nose/Sinus: Normal nares present Mouth: Yes dry mucous membranes (On BiPAP) Eyes: General: appearance normal, both eyes and all related structures Sclera: sclerae normal Pupils: Equal, round and reactive pupils present EOM: EOMs intact bilaterally Resp: Other: Modest tachypnea. Coarse lung sounds bilaterally but diminished in bases with faint crackles appreciated. No wheezing. Tolerating BiPAP well. Cardio: Rate: regular rate Rhythm: regular rhythm Other: +/-murmur GI: Other: Abdomen soft, nondistended, nontender. Normoactive bowel sounds in all quadrants. Skin: General skin exam: normal color and no rashes or lesions noted Wounds: no wounds Neuro: Speech: normal speech Motor exam (neuro): 5/5 motor strength present throughout Sensory Exam: normal sensation Extrem: Other: 2+ pitting edema to bilateral lower extremities from just distal to her bilateral knees to her feet. +1 nonpitting edema to her bilateral thighs. Psych: Mental Status: mental status grossly normal Affect: normal affect Other: Good insight and judgment, pleasant Assessment and Plan Assessment and plan (1) Acute hypoxic respiratory failure: Code(s): J96.01 - Acute respiratory failure with hypoxia Status: Acute Assessment and Plan: Chest CT completed on 08/05 which showed mild right lower lobe aspiration pneumonia, right middle lobe collapse with obstructive bronchus, interstitial pulmonary edema and/or pneumonitis superimposed upon emphysema, and attributed CXR appearance to severe pulmonary arterial hypertension. The patient has a history significant for COPD and chronic respiratory failure on supplemental O2 at home - 3L NC. Initial ABG showed pO2 of 39.4, mild hypercapnia, mild acidosis, and a low O2 saturation at 69.4% on nasal cannula. She was subsequently started on BiPAP at [facility]. Plan for repeat ABG. Continue BiPAP. Acute respiratory failure likely multifactorial including possible CHF, aspiration pneumonia, obstructive bronchus causing collapse of the right middle lobe, COPD. See respective sections. (2) Sepsis: Qualifiers: Acute respiratory failure type: with hypoxia Sepsis acute organ dysfunction status: with acute organ dysfunction Sepsis type: sepsis due to unspecified organism Severe sepsis acute organ dysfunction type: acute respiratory failure Severe sepsis shock status: without septic shock Qualified Code(s): A41.9 - Sepsis, unspecified organism; R65.20 - Severe sepsis without septic shock; J96.01 - Acute respiratory failure with hypoxia Code(s): A41.9 - Sepsis, unspecified organism Status: Acute Assessment and Plan: Patient met SIRS criteria due to tachypnea and hypoxia. Initial lactic 4.7, repeat 4.0. Imaging concerning for aspiration pneumonia. UA equivocal for UTI. Patient did not receive sepsis bolus due to concern for CHF in the ED. Will give 500 mL bolus, assess toleration. Trend lactic, add procalcitonin.. Blood cultures obtained on 08/05, follow. - currently requiring BiPAP, trend ABGs - started on Levaquin in the ED, transition to Zosyn on 08/05 - monitor hemodynamic stability (3) Aspiration pneumonia: Qualifiers: Aspiration pneumonia type: unspecified Laterality: right Lung location: lower lobe of lung Qualified Code(s): J69.0 - Pneumonitis due to inhalation of food and vomit Code(s): J69.0 - Pneumonitis due to inhalation of food and vomit Status: Acute Assessment and Plan: CT showed mild right lower lobe aspiration pneumonia. Patient initially started on Levaquin at [facility] on 08/05. Will continue as Zosyn q.6. - check MRSA PCR - check sputum culture - supportive care: Mucinex, Tylenol, Tessalon Perles, Zofran - given appearance of aspiration pneumonia, will have speech evaluate - continue supplemental oxygen to maintain O2 sat greater than 92%. Currently requiring BiPAP, once no longer requiring consider encouraging IS use. (4) Mucus plugging of bronchi: Code(s): T17.500A - Unspecified foreign body in bronchus causing asphyxiation, initial encounter Status: Acute Assessment and Plan: - start CPT - Mucinex brittni - receiving brittni Duonebs, could consider adding Mucomyst nebulizer - if no improvement with current interventions, consider pulmonology consultation (5) CHF (congestive heart failure): Qualifiers: Heart failure chronicity: acute Heart failure type: unspecified Qualified Code(s): I50.9 - Heart failure, unspecified Code(s): I50.9 - Heart failure, unspecified Status: Acute Assessment and Plan: Patient's exam and BNP level (74771) concerning for CHF exacerbation. Per chart review, the patient's OS recent echo was completed in 2021 which showed a normal LV systolic function with an estimated EF of 55-60%, moderate to severe concentric LVH, are V moderately enlarged, RV systolic function moderate to severely depressed, severe pulmonary hypertension, trace/mild valvular disease. Initially given Lasix 60 mg IV at [facility], continue as 40 mg b.i.d. Hold home Lasix 20 mg daily, continue digoxin and spironolactone. - update echo - monitor I&Os, daily weights, and renal function - continue IV diuresis, initially given 60 mg IV in the ED. Continue as 40 mg b.i.d. IV. - continue BiPAP - cardiology consulted (6) Acute kidney injury superimposed on CKD: Code(s): N17.9 - Acute kidney failure, unspecified; N18.9 - Chronic kidney disease, unspecified Status: Acute Assessment and Plan: MARK superimposed on CKD stage IIIA. Initial lab work showed a creatinine of 2.01, BUN 48, GFR 25 upon admission on 08/05. Reviewed previous lab work, creatinine has ranged between 0.98 and 1.16 since 2020. Suspect MARK secondary to volume overload due to CHF exacerbation. However UA equivocal for UTI. - start diuresis for suspected CHF exacerbation/volume overload, trend renal function closely - UA concerning for UTI, follow urine culture. Started on broad-spectrum antibiotics, has concurrent aspiration pneumonia. - mild hyperkalemia noted upon initial evaluation, treated with bicarb and insulin/dextrose. - trend renal function and electrolytes, correct as needed (7) Elevated troponin: Code(s): R79.89 - Other specified abnormal findings of blood chemistry Status: Acute Assessment and Plan: Reviewed initial EKG, showed sinus bradycardia with first-degree AV block. No significant ST depressions or elevations appreciated. High suspicion for type 2 UT given the patient has been significantly hypoxic. - troponin: 0.183 -> 0.211, continue to trend - continue Plavix - cardiology consulted (8) UTI (urinary tract infection): Qualifiers: Hematuria presence: without hematuria Urinary tract infection type: acute cystitis Qualified Code(s): N30.00 - Acute cystitis without hematuria Code(s): N39.0 - Urinary tract infection, site not specified Status: Acute Assessment and Plan: UA equivocal for UTI as there are epithelial cells present. - UC pending, obtained on 08/05 - previous micro reviewed: Grew E coli in May of 2025, pansensitive - started on Zosyn on 08/05 due to concurrent concern for aspiration pneumonia - holding off on IV fluids due to concern for CHF exacerbation (9) COPD (chronic obstructive pulmonary disease): Qualifiers: COPD type: unspecified COPD Qualified Code(s): J44.9 - Chronic obstructive pulmonary disease, unspecified Code(s): J44.9 - Chronic obstructive pulmonary disease, unspecified Status: Acute Assessment and Plan: On initial exam in the ER the patient had scattered rales bilaterally mainly at the basis bluish discoloration of the lips increasing concerns for COPD component. Patient is also reporting a chronic productive cough that has been bothersome lately. - DuoNeb brittni - given Solu-Medrol 125 mg IV in the ED, continue as prednisone 40 mg p.o. x5 days - continue montelukast (10) Acute hyperkalemia: Code(s): E87.5 - Hyperkalemia Status: Acute Assessment and Plan: Mild hyperkalemia noted upon admission, K 5.6. Initially treated with sodium bicarbonate and insulin/dextrose. Repeat upon trasnfer. Continue to correct as needed, monitor. (11) Hypertension associated with type 2 diabetes mellitus: Code(s): E11.59 - Type 2 diabetes mellitus with other circulatory complications; I10 - Essential (primary) hypertension Status: Acute Assessment and Plan: - chronic, currently 149/80, stable. - continue home medications: Lisinopril - monitor Plan Diet: Heart healthy GI Prophylaxis: n/a DVT Prophylaxis: Lovenox IV fluids: 500 mL bolus, diuresing Lines/Tubes: Peripheral IV Code Status: DNR Quality VTE Prophylaxis VTE prophylaxis: pharmacologic ordered Critical Care Time: I personally spent 45 minutes of direct patient care including (but not limited to) the physical examination, decision-making, bedside evaluation, review of medical records, review of labs and imaging, discussion with nursing staff and other providers for collaborative, critical care management of this patient. Hospitalist MIPS Advance Care Plan I have confirmed that the patient's Advanced Care Plan is present, code status is documented, or surrogate decision maker is listed in patient medical record.: Yes Medication Reconciliation I have utilized all available resources to obtain, update and review the patients current medications (includes all prescriptions, OTC, herbals, cannabis, and nutritional supplements).: Yes
[2025-08-05 19:02] LABS: Alveolar/Arterial O2 Gradient 167.8 mmHg; Fractional Inspired Oxygen 40 %; HCO3 ABG 26.1 mEq/l (22.0-26.0); Oxygen Content ABG 20.3 %vol (16.0-22.0); Oxygen Saturation ABG 89.5 % (95.0-100.0); PCO2 ABG 49.6 mmHg (35.0-45.0); PO2 ABG 60.4 mmHg (80.0-100.0); PO2 FiO2 Ratio Arterial Blood 1.51 %
[2025-08-05 19:06] LABS: Modified Allen's Test Pass; Site Drawn LEFT RADIAL
[2025-08-05 20:12] LABS: Troponin I 0.507 ng/mL (0.000-0.034)
[2025-08-05] MEDS: IPRATROPIUM 0.5 MG/ALBUTEROL SULFATE 2.5 MG (BASE) AMPUL.NEB 3 ML INHALATION (20:42)
[2025-08-05] MEDS: FLUTICASONE/SALMETEROL 230-21 MCG INHALER 1 PUFF 2 PUFF INHALATION (20:42)
[2025-08-05] MEDS: SODIUM CHLORIDE 0.9% IV 500 ML IV CONT (20:56)
[2025-08-05] MEDS: PIPERACILLIN/TAZOBACTAM SOD 3.375 GM in SODIUM CHLORIDE 0.9% IV 50 ML IVPB (21:00)
[2025-08-05] MEDS: GABAPENTIN 300 MG CAPSULE PO (21:03)
[2025-08-05] MEDS: guaiFENesin 12 HR 600 MG TABCR PO (21:03)
[2025-08-05] MEDS: MONTELUKAST SODIUM 10 MG TABLET PO (21:03)
[2025-08-05 22:58] LABS: Non-Invasive Expiratory Pressure 6 CMH2O; Non-Invasive Inspiratory Pressure 12 CMH2O; Non-Invasive Vent Rate 16 /MIN
[2025-08-05 23:10] LABS: Anion Gap 9 mmol/L (4-12); Blood Urea Nitrogen 50 mg/dL (7-17); Calcium 8.6 mg/dL (8.4-10.2); Carbon Dioxide 30 mmol/L (22-30); Chloride 98 mmol/L (98-107); Estimated CRCL calculation 26 ml/min; Estimated Glomerular Filt Rate 28; Glucose 137 mg/dL (65-110); Potassium 5.7 mmol/L (3.4-5.0); Sodium 137 mmol/L (137-145)
[2025-08-06] VITALS (29 sets, daily range): BP systolic 118–165; BP diastolic 52–84; PULSE 57–97; RESP 16–49; TEMP 36.4–36.7; O2SAT 92–100
--- NOTE | 2025-08-06 | ECHO_ITS ---
Patient Info Name: Patty Orozco Age: 60 years : 1965 Gender: Female Ht: 62 in Wt: 136 lbs BSA: 1.65 m2 HR: 63 bpm BP: 118 / 67 mmHg Heart Rhythm: Sinus Rhythm Technical Quality: Good Exam Date: 08/06/2025 9:35 AM Patient Status: I Admit Date: 08/06/2025 Exam Type: CA echo dop color flow w con Complete two-dimensional, color flow and Doppler transthoracic echocardiogram is performed with contrast to opacify the left ventricle and to improve the deliniation of the left ventricle endocardial borders. Staff Referring Physician: Linh Dominguez Spine Surgeon: Debbi Persaud Attending Provider: Amadou Delgado Contrast/Agitated Saline Contrast/Ag. Saline: Definity Amount: 2.00 ml Summary 1. Left ventricular cavity is small with hyperdynamic systolic function and septal flattening consistent with RV pressure overload. 2. Markedly dilated right ventricle with severe hypokinesia. 3. Small amount of tricuspid insufficiency, jet was difficult to interrogate for estimation of PA pressure which is previously known to be severely elevated. Left Ventricle Left ventricular chamber dimension is decreased. Left ventricular systolic function is hyperdynamic, estimated at >70. There is mild concentric increased left ventricular wall thickness. The left ventricular diastolic function is grade I diastolic dysfunction. Right Ventricle Right ventricular chamber dimension is severely enlarged. Right ventricular systolic function is reduced. Left Atria Left atrial chamber dimension is normal. Right Atria Right atrial chamber dimension is severely enlarged. Aortic Valve The aortic valve is normal. Pulmonic Valve The pulmonic valve is normal. There is moderate pulmonic regurgitation. Mitral Valve The mitral valve has normal leaflets. Tricuspid Valve The tricuspid valve leaflets are normal. There is mild tricuspid valve regurgitation. Pericardium/Pleural The pericardium appears normal. Aorta The aortic root size at the sinus of Valsalva is normal. Left Ventricular Outflow Tract Name Value Normal LVOT 2D LVOT Diameter 2.0 cm LVOT Doppler LVOT Peak Velocity 96 cm/s LVOT Peak Gradient 4 mmHg LVOT Mean Gradient 2 mmHg LVOT VTI 16 cm LVOT Stroke Volume 51 ml LVOT CO 3.2 l/min LVOT CI 1.9 l/min/m2 Pulmonic Valve Name Value Normal RVOT Doppler RVOT Peak Velocity 87 cm/s RVOT Peak Gradient 3 mmHg PV Doppler PV Peak Velocity 169 cm/s PV Peak Gradient 11 mmHg PV Regurgitation Doppler CO Peak End Diastolic Velocity 236 cm/s Mitral Valve Name Value Normal MV Diastolic Function MV E Peak Velocity 58 cm/s MV A Peak Velocity 102 cm/s MV E/A 0.6 MV Decel Time (PW) 302 ms MV Annular TDI MV E/e' (Septal) 16.0 MV E/e' (Lateral) 10.3 MV E/e' (Average) 13.2 Tricuspid Valve Name Value Normal TV Regurgitation Doppler TR Peak Velocity 327 cm/s TR Peak Gradient 43 mmHg TV Annular TDI TV Lateral Terra s' Velocity 14.3 cm/s >=9.5 Aortic Valve Name Value Normal AV Doppler AV Peak Velocity 174 cm/s AV Peak Gradient 12 mmHg AV Area (Cont Eq Hung) 1.8 cm2 AV DI (Hung) 0.55 AV Regurgitation 2D LVOT Area 3.2 cm2 Ventricles Name Value Normal LV Dimensions 2D/MM IVS Diastolic Thickness (2D) 1.2 cm 0.6-1.0 LVID Diastole (2D) 3.5 cm 3.8-5.2 LVIW Diastolic Thickness (2D) 1.2 cm 0.6-0.9 LVID Systole (2D) 2.5 cm 2.2-3.5 LVOT Diameter 2.0 cm LV Mass (2D Cubed) 137.16 g 67.00-162.00 LV Mass Index (2D Cubed) 83 g/m2 43-95 Relative Wall Thickness (2D) 0.70 <=0.42 LV Fractional Shortening/Ejection Fraction 2D/MM LV Fractional Shortening (2D) 28 % 27-45 LV EF (2D Teichholz) 56 % LV Diastolic Volume (4C MOD) 69 ml LV EF (4C MOD) 66 % LV Diastolic Volume (2C MOD) 86 ml LV EF (2C MOD) 69 % LV Diastolic Volume (BP MOD) 86 ml 46-106 LV Diastolic Volume Index (BP MOD) 52 ml/m2 29-61 LV Systolic Volume (BP MOD) 26 ml 14-42 LV Systolic Volume Index (BP MOD) 16 ml/m2 8-24 LV EF (BP MOD) 70 % 54-74 LV Diastolic Length (4C) 9.0 cm LV Systolic Length (4C) 6.2 cm LV Stroke Volume (4C MOD) 46 ml Atria Name Value Normal LA Dimensions LA Volume (4C A-L) 20 ml LA Volume (BP A-L) 20 ml RA Dimensions RA Systolic Major Stuart Length (4C) 6.4 cm 2.2-2.8 RA Area (4C) 16.5 cm2 <=18.0 Report Signatures
[2025-08-06] MEDS: IPRATROPIUM 0.5 MG/ALBUTEROL SULFATE 2.5 MG (BASE) AMPUL.NEB 3 ML INHALATION ×4 (01:32→20:04)
[2025-08-06] MEDS: PIPERACILLIN/TAZOBACTAM SOD 3.375 GM in SODIUM CHLORIDE 0.9% IV 50 ML IVPB ×4 (02:22→20:55)
[2025-08-06 04:20] LABS: Hematocrit 50.2 % (37.0-47.0); Hemoglobin 15.0 g/dL (12.0-15.0); Immature Granulocyte Percent A 1.2 % (0-0.5); Lymphocytes Absolute Auto 0.60 K/mm3 (0.9-3.2); Mean Corpuscular HGB Conc 29.9 g/dl (32-36); Mean Corpuscular Hemoglobin 27.8 pg (26-34); Mean Corpuscular Volume 93.1 fl (80-100); Nucleated Red Blood Cells Absolute Auto 0.020 K/mm3 (0.0-0.012); Nucleated Red Blood Cells Perc 0.2 % (0.0-0.2); Platelet Count Result 201 k/mm3 (150-375); Red Blood Count 5.39 M/mm3 (4.2-5.4); White Blood Count 8.4 K/mm3 (4.5-10.0)
[2025-08-06 04:46] LABS: Anisocytosis 1+; Schistocytes None Seen
[2025-08-06 04:48] LABS: Alanine Aminotransferase 33 U/L (6-35); Albumin Level 3.3 g/dL (3.5-5.1); Alkaline Phosphatase 88 U/L (38-126); Anion Gap 9 mmol/L (4-12); Aspartate Amino Transferase 49 U/L (14-36); Bilirubin,Total 1.1 mg/dL (0.2-1.3); Blood Urea Nitrogen 54 mg/dL (7-17); Calcium 8.3 mg/dL (8.4-10.2); Carbon Dioxide 28 mmol/L (22-30); Chloride 99 mmol/L (98-107); Estimated CRCL calculation 24 ml/min; Estimated Glomerular Filt Rate 29; Glucose 121 mg/dL (65-110); Potassium 5.8 mmol/L (3.4-5.0); Sodium 136 mmol/L (137-145); Total Protein 6.4 g/dL (6.3-8.2)
[2025-08-06 05:23] LABS: Alveolar/Arterial O2 Gradient 212.8 mmHg; Fractional Inspired Oxygen 50 %; HCO3 ABG 30.5 mEq/l (22.0-26.0); Oxygen Content ABG 19.8 %vol (16.0-22.0); Oxygen Saturation ABG 92.6 % (95.0-100.0); PO2 ABG 72.3 mmHg (80.0-100.0); PO2 FiO2 Ratio Arterial Blood 1.45 %
[2025-08-06 05:27] LABS: Modified Allen's Test Pass; Non-Invasive Vent Rate 18 /MIN; PCO2 ABG 63.5 mmHg (35.0-45.0); Site Drawn RIGHT RADIAL
[2025-08-06 05:28] LABS: Non-Invasive Expiratory Pressure 8 CMH2O; Non-Invasive Inspiratory Pressure 16 CMH2O
[2025-08-06 05:40] LABS: Procalcitonin 0.4 ng/mL
--- NOTE | 2025-08-06 06:09 | P.PNCROSS_ITS ---
Event Note Event Note Event Note: Respiratory therapy brought me the patient's repeat ABG this morning pH had ana pped from 7.39-7.29 and pCO2 at climbed from 49.6 up to 63.5 despite increasing the patient's rate on BiPAP to 18 last night and increasing inspiratory pressure from 12-16 and increasing extra caryn pressure to 8. The patient has been pulling tidal volumes of around 450 according to respiratory therapy. The patient has been started on scheduled nebulizers and p.o. steroids. Given worsening blood gas will changed prednisone to IV Solu-Medrol q.6 hours. Will add Mucomyst nebs given complete mucous plugging of bronchi. Will continue Mucinex p.o. b.i.d.. Will change vest therapy to q.6 hours with nebulizers. Will either increase the respiratory rate on the BiPAP and or the IPAP to EPAP ratio depending on response to adjustments made at bedside. Will repeat ABG in 2 hours. If no improvement in ABG will discuss patient case with pulmonology
[2025-08-06] MEDS: ACETYLCYSTEINE 20% INHAL SOLN 800 MG/4 ML VIAL 200 MG INHALATION ×3 (07:15→20:05)
[2025-08-06] MEDS: FLUTICASONE/SALMETEROL 230-21 MCG INHALER 1 PUFF 2 PUFF INHALATION ×2 (07:16→20:05)
[2025-08-06 08:10] LABS: MRSA (PCR) NOT DETECTED (NOT DETECTE)
[2025-08-06] MEDS: ENOXAPARIN 30 MG/0.3 ML SYRINGE SUB-Q (08:14)
[2025-08-06] MEDS: FUROSEMIDE INJ 40 MG/4 ML VIAL IV PUSH ×2 (08:14→17:00)
[2025-08-06] MEDS: DIGOXIN TAB 125 MCG TABLET PO (08:15)
[2025-08-06] MEDS: guaiFENesin 12 HR 600 MG TABCR PO ×2 (08:15→20:56)
[2025-08-06] MEDS: SPIRONOLACTONE 25 MG TABLET PO (08:16)
[2025-08-06] MEDS: GABAPENTIN 300 MG CAPSULE PO ×4 (08:16→20:57)
[2025-08-06] MEDS: CYANOCOBALAMIN 1,000 MCG TABLET 1000 MCG PO (08:16)
[2025-08-06] MEDS: CLOPIDOGREL BISULFATE 75 MG TABLET PO (08:16)
[2025-08-06] MEDS: LOVASTATIN 20 MG TABLET 40 MG PO (08:16)
[2025-08-06 08:33] LABS: Alveolar/Arterial O2 Gradient 240.4 mmHg; Fractional Inspired Oxygen 40 %; HCO3 ABG 29.9 mEq/l (22.0-26.0); Oxygen Content ABG 20.6 %vol (16.0-22.0); Oxygen Saturation ABG 94.0 % (95.0-100.0); PCO2 ABG 53.9 mmHg (35.0-45.0); PO2 ABG 73.4 mmHg (80.0-100.0); PO2 FiO2 Ratio Arterial Blood 1.84 %
[2025-08-06 08:34] LABS: Liters per Minute 4.0 LPM; Modified Allen's Test Pass; Site Drawn RIGHT RADIAL
--- NOTE | 2025-08-06 09:02 | P.PNIM_ITS ---
Progress Note: A&P Assessment and Plan (1) Acute hypoxic respiratory failure: Code(s): J96.01 - Acute respiratory failure with hypoxia Status: Inactive Assessment and Plan: Acute respiratory failure likely multifactorial including possible CHF, aspiration pneumonia, obstructive bronchus causing collapse of the right middle lobe, COPD. O2 at home - 3L NC. Chest CT completed on 08/05 which showed mild right lower lobe aspiration pneumonia, right middle lobe collapse with obstructive bronchus, interstitial pulmonary edema and/or pneumonitis superimposed upon emphysema, started on BiPAP at [facility]. ABG shows hypercarbia improved with BiPAP setting changes the patient is likely at baseline P.r.n. BiPAP. (2) Sepsis: Qualifiers: Acute respiratory failure type: with hypoxia Sepsis acute organ dysfunction status: with acute organ dysfunction Sepsis type: sepsis due to unspecified organism Severe sepsis acute organ dysfunction type: acute respiratory failure Severe sepsis shock status: without septic shock Qualified Code(s): A41.9 - Sepsis, unspecified organism; R65.20 - Severe sepsis without septic shock; J96.01 - Acute respiratory failure with hypoxia Code(s): A41.9 - Sepsis, unspecified organism Status: Acute Assessment and Plan: Patient met SIRS criteria due to tachypnea and hypoxia. Initial lactic 4.7, repeat 4.0. Imaging concerning for aspiration pneumonia., patient denies aspiration. UTI culture and sensitivity pending Sepsis bolus not given due to acute CHF Blood cultures pending started on Levaquin in the ED, transition to Zosyn on 08/05 (3) Aspiration pneumonia: Qualifiers: Aspiration pneumonia type: unspecified Laterality: right Lung location: lower lobe of lung Qualified Code(s): J69.0 - Pneumonitis due to inhalation of food and vomit Code(s): J69.0 - Pneumonitis due to inhalation of food and vomit Status: Inactive Assessment and Plan: CT showed mild right lower lobe aspiration pneumonia. Patient initially started on Levaquin at [facility] on 08/05. Will continue as Zosyn q.6. Sputum culture pending Antibiotics as above Patient passed bedside swallow by nursing (4) Mucus plugging of bronchi: Code(s): T17.500A - Unspecified foreign body in bronchus causing asphyxiation, initial encounter Status: Acute Assessment and Plan: start CPT Mucinex brittni receiving [facility] Dunadiabs, could consider adding Mucomyst nebulizer if no improvement with current interventions, consider pulmonology consultation (5) CHF (congestive heart failure): Qualifiers: Heart failure chronicity: acute Heart failure type: unspecified Qualified Code(s): I50.9 - Heart failure, unspecified Code(s): I50.9 - Heart failure, unspecified Status: Inactive Assessment and Plan: Initially given Lasix 60 mg IV at [facility], continue as 40 mg b.i.d. Hold home Lasix 20 mg daily, continue digoxin and spironolactone. Cardiology consult IV Lasix b.i.d. monitor for worsening MARK BiPAP Fluid restriction Daily weights Echocardiogram EF over 70%, Small amount of tricuspid insufficiency, jet was difficult to interrogate for estimation of PA pressure which is previously known to be severely elevated. (6) Elevated troponin: Code(s): R79.89 - Other specified abnormal findings of blood chemistry Status: Inactive Assessment and Plan: Reviewed initial EKG, showed sinus bradycardia with first-degree AV block. No significant ST depressions or elevations appreciated. High suspicion for type 2 NM given the patient has been significantly hypoxic. Trend troponin till peaked continue Plavix cardiology consulted EKG Denies chest pain likely due to hypoxia (7) UTI (urinary tract infection): Qualifiers: Hematuria presence: without hematuria Urinary tract infection type: acute cystitis Qualified Code(s): N30.00 - Acute cystitis without hematuria Code(s): N39.0 - Urinary tract infection, site not specified Status: Acute Assessment and Plan: UA equivocal for UTI as there are epithelial cells present. - UC pending, obtained on 08/05 - previous micro reviewed: Grew E coli in May of 2025, pansensitive - started on Zosyn on 08/05 due to concurrent concern for aspiration pneumonia - holding off on IV fluids due to concern for CHF exacerbation (8) COPD (chronic obstructive pulmonary disease): Qualifiers: COPD type: unspecified COPD Qualified Code(s): J44.9 - Chronic obstructive pulmonary disease, unspecified Code(s): J44.9 - Chronic obstructive pulmonary disease, unspecified Status: Acute Assessment and Plan: COPD exacerbation Lorelei elkins given Solu-Medrol 125 mg IV in the ED, continue as prednisone 40 mg p.o. x5 days continue montelukast (9) Acute hyperkalemia: Code(s): E87.5 - Hyperkalemia Status: Inactive Assessment and Plan: Mild hyperkalemia noted upon admission, K 5.6. Initially treated with sodium bicarbonate and insulin/dextrose. Hyper kalemia increased on a.m. labs Lasix, Lokelma and insulin dextrose given Repeat potassium this afternoon hyperkalemia resolved Telemetry monitoring (10) Hypertension associated with type 2 diabetes mellitus: Code(s): E11.59 - Type 2 diabetes mellitus with other circulatory complications; I10 - Essential (primary) hypertension Status: Acute Assessment and Plan: Hold lisinopril due to MARK Safia-Tatiana dawkins Hypoglycemia protocol (11) Acute renal injury: Code(s): N17.9 - Acute kidney failure, unspecified Status: Acute Assessment and Plan: Unable to do IV fluids due to, CHF, respiratory distress and fluid overload Currently receiving Lasix Daily BMP to monitor May need a Nephrology consult Hold nephrotoxic medications Plan Code Status: DNR Time Spent With Patient Time with patient: Greater than 35 minutes Subjective Date/time seen: 08/06/25 09:02 Interval history: 60 y/o F with PMH of COPD, HTN, DM, tobacco use, chronic respiratory failure on supplemental O2 (3L NC), and CKD presented to [facility] on 08/05 for further evaluation of shortness of breath found to have aspiration pneumonia. Patient still hypercarbic on ABG however she is poorly at baseline, alert oriented able to eat breakfast, has no current complaints however she states she has [id number] inhaler in her purse that she wants to use patient educated not to use home medications while in hospital. She states she is going use it anyway if she can get somebody to take it out of her purse. She states that better and gives her a boost. Over can inhalers likely a epinephrine inhaler. Nursing informed. Review of Systems Review of Systems: All systems reviewed & are unremarkable except as noted in HPI and below Exam Narrative: General: Chronically ill-appearing no acute distress. HEENT: normocephalic, atraumatic. Mucous membranes moist. EOMI, PERRLA, bilateral sclera anicteric, no conjunctival injection. Neck supple without JVD, lymphadenopathy, or bruit. Respiratory: Coarse wheezes Cardiovascular: Regular rate and rhythm, normal S1-S2 upon ascultation. No murmurs, rubs, or clicks. PMI is nondisplaced, capillary refill less than 3 second. Abdomen: Soft, round, no pulsatile masses, nondistended and nontender. No rebound, no guarding. No CVA tenderness, no hepatosplenomegaly. Bowel sounds present to all four quadrants. No high pitch or tinkling sounds, resonant to percussion. Extremities: No cyanosis, clubbing, or edema present. Pulses are palpable 2/2. Active ROM to all four extremities. Neuro: Alert and orientated x 4. PERRLA. Cranial nerves 2-12 intact without focal deficit. Skin: Warm, dry, and intact, without rash, erythema, or lesion. Psych: pleasant, cooperative, normal speech, normal affect, no hallucinations, no dysarthia Nasal cannula Objective Data Vital Signs Vital Signs: Vital Signs - 24 hr 08/05/25 18:52 08/05/25 19:51 08/05/25 20:00 Temperature 97.4 F L 97.5 F L Pulse Rate 58 L 60 59 L Respiratory Rate 27 H 22 H Blood Pressure 149/80 H 177/99 H Pulse Oximetry 90 99 Oxygen Delivery Oxygen Flow Rate Fraction of Inspired Oxygen 08/05/25 20:00 08/05/25 20:40 08/05/25 20:42 Temperature Pulse Rate 84 84 Respiratory Rate 20 20 Blood Pressure Pulse Oximetry 97 Oxygen Delivery BiPAP BiPAP Oxygen Flow Rate Fraction of Inspired Oxygen 08/05/25 20:52 08/05/25 22:00 08/06/25 00:00 Temperature Pulse Rate 86 62 Respiratory Rate 20 Blood Pressure Pulse Oximetry Oxygen Delivery BiPAP Oxygen Flow Rate Fraction of Inspired Oxygen 08/06/25 00:00 08/06/25 00:00 08/06/25 00:23 Temperature 97.6 F Pulse Rate 60 60 59 L Respiratory Rate 19 19 Blood Pressure 165/75 H Pulse Oximetry 100 100 Oxygen Delivery BiPAP Oxygen Flow Rate Fraction of Inspired Oxygen 08/06/25 01:34 08/06/25 01:42 08/06/25 02:00 Temperature Pulse Rate 58 L 59 L 61 Respiratory Rate 19 19 Blood Pressure Pulse Oximetry Oxygen Delivery Oxygen Flow Rate Fraction of Inspired Oxygen 08/06/25 02:52 08/06/25 04:00 08/06/25 04:00 Temperature 97.6 F Pulse Rate 57 L 58 L Respiratory Rate 20 19 Blood Pressure 140/63 Pulse Oximetry 100 99 Oxygen Delivery BiPAP BiPAP Oxygen Flow Rate Fraction of Inspired Oxygen 08/06/25 04:00 08/06/25 06:00 08/06/25 07:15 Temperature Pulse Rate 60 57 L 97 Respiratory Rate 19 Blood Pressure Pulse Oximetry Oxygen Delivery Oxygen Flow Rate Fraction of Inspired Oxygen 08/06/25 07:20 08/06/25 07:27 08/06/25 07:46 Temperature 97.9 F Pulse Rate 94 61 58 L Respiratory Rate 49 H 21 H 24 H Blood Pressure 118/67 Pulse Oximetry 99 95 Oxygen Delivery BiPAP Oxygen Flow Rate Fraction of Inspired Oxygen 08/06/25 08:00 08/06/25 08:15 08/06/25 08:42 Temperature Pulse Rate 62 62 Respiratory Rate 24 H Blood Pressure Pulse Oximetry 95 Oxygen Delivery BiPAP BiPAP Oxygen Flow Rate Fraction of Inspired Oxygen 40 08/06/25 08:43 08/06/25 08:43 Temperature Pulse Rate Respiratory Rate Blood Pressure Pulse Oximetry 100 96 Oxygen Delivery Nasal Cannula Nasal Cannula Oxygen Flow Rate 4 4 Fraction of Inspired Oxygen Intake/Output Intake/Output: Intake & Output 08/03/25 08/04/25 08/05/25 08/06/25 23:59 23:59 23:59 23:59 Intake Total 50 50 Balance 50 50 Meds/Results Medications: Active Medications Generic Name Dose Route Start Last Admin Trade Name Freq PRN Reason Stop Dose Admin Acetaminophen 650 mg 08/05/25 18:40 Acetaminophen 325 Mg Tablet PO Q4H PRN Mild Pain (1-3) or Fever Hydrocodone Bitart/Acetaminophen 1 tab 08/05/25 18:40 Hydrocodone/Acetaminophen (*Crx) 5-325 Mg Tablet PO Q4H PRN Moderate Pain (4-6) Acetylcysteine 200 mg 08/06/25 08:00 08/06/25 07:15 Acetylcysteine 20% Inhal Soln 800 Mg/4 Ml Vial INHALATION 200 mg Q6HRT BRITTNI Administration Al Hydrox/Mg Hydrox/Simethicone 30 ml 08/05/25 18:40 Mag Hydrox/Al Hydrox/Simeth 30 Ml Udc PO QID PRN Dyspepsia Albuterol/Ipratropium 3 ml 08/05/25 20:00 08/06/25 07:15 Ipratropium 0.5 Mg/Albuterol Sulfate 2.5 Mg (Base) Ampul.Neb 3 Ml INHALATION 3 ml Q6HRT BRITTNI Administration Benzonatate 100 mg 08/05/25 18:53 Benzonatate 100 Mg Capsule PO TID PRN Cough Bisacodyl 5 mg 08/05/25 18:40 Bisacodyl 5 Mg Tablet Ec PO DAILY PRN Constipation Clopidogrel Bisulfate 75 mg 08/06/25 09:00 08/06/25 08:16 Clopidogrel Bisulfate 75 Mg Tablet PO 75 mg DAILY BRITTNI Administration Cyanocobalamin 1,000 mcg 10/25/25 09:00 08/06/25 08:16 Cyanocobalamin 1,000 Mcg Tablet PO 1,000 mcg DAILY BRITTNI Administration Digoxin 125 mcg 08/06/25 09:00 08/06/25 08:15 Digoxin Tab 125 Mcg Tablet PO 125 mcg DAILY BRITTNI Administration Enoxaparin Sodium 30 mg 08/06/25 09:00 08/06/25 08:14 Enoxaparin 30 Mg/0.3 Ml Syringe SUB-Q 30 mg DAILY BRITTNI Administration Furosemide 40 mg 08/06/25 09:00 08/06/25 08:14 Furosemide Inj 40 Mg/4 Ml Vial IV PUSH 40 mg BID BRITTNI Administration Gabapentin 300 mg 08/05/25 21:00 08/06/25 08:16 Gabapentin 300 Mg Capsule PO 300 mg QID BRITTNI Administration Guaifenesin 600 mg 08/05/25 21:00 08/06/25 08:15 Guaifenesin 12 Hr 600 Mg Tabcr PO 600 mg Q12HR BRITTNI Administration Piperacillin Sod/Tazobactam 50 mls @ 100 mls/hr 08/05/25 20:00 08/06/25 08:14 Sod 3.375 gm/ Sodium Chloride IVPB 100 mls/hr Q6H BRITTNI Administration Lisinopril 5 mg 08/06/25 09:00 08/06/25 08:16 Lisinopril 5 Mg Tablet PO 5 mg DAILY BRITTNI Administration Lovastatin 40 mg 08/06/25 09:00 08/06/25 08:16 Lovastatin 20 Mg Tablet PO 40 mg DAILY BRITTNI Administration Methylprednisolone Sodium Succinate 60 mg 08/06/25 06:10 08/06/25 07:26 Methylprednisolone Sod Succ 125 Mg Vial IV PUSH 60 mg Q6HR BRITTNI Administration Montelukast Sodium 10 mg 08/05/25 21:00 08/05/25 21:03 Montelukast Sodium 10 Mg Tablet PO 10 mg HS BRITTNI Administration Ondansetron HCl 4 mg 08/05/25 18:40 Ondansetron Inj 4 Mg/2 Ml Vial IV PUSH Q6H PRN Nausea And Vomiting Perflutren Lipid Microsphere 0 ml 08/05/25 18:40 Perflutren Lipid Microspheres 1.5 Ml Vial Diluted To 10 Ml Total Volume IV PUSH 08/08/25 18:40 ONCE PRN adequate visualization Protocol Fluticasone/Salmeterol 2 puff 08/05/25 20:00 08/06/25 07:16 Fluticasone/Salmeterol 230-21 Mcg Inhaler 1 Puff INHALATION 2 puff Q12HRT BRITTNI Administration Spironolactone 25 mg 08/06/25 09:00 08/06/25 08:16 Spironolactone 25 Mg Tablet PO 25 mg DAILY BRITTNI Administration Radiology Results: ITS Impressions Chest X-Ray 08/06/25 08:27 IMPRESSION: 1. Mild worsening interstitial pulmonary edema and/or pneumonitis. 2. Right basilar aspiration pneumonia poorly seen on chest x-ray as compared to CT, as is right middle lobe atelectasis. Labs Labs: Laboratory Results - last 24 hr 08/05/25 08/05/25 08/05/25 18:49 19:27 22:33 WBC RBC Hgb Hct MCV MCH MCHC RDW Plt Count MPV Immature Gran % (Auto) Neut % (Auto) Lymph % (Auto) Falls % (Auto) Eos % (Auto) Baso % (Auto) Lymph # (Auto) Falls # (Auto) Eos # (Auto) Baso # (Auto) Abs Immat Gran (auto) Absolute Neuts (auto) Absolute Nucleated RBC Band Neutrophils % Nucleated RBC % Platelet Estimate Anisocytosis Schistocytes Puncture Site Left radial ABG pH 7.339 L ABG pCO2 49.6 H ABG pO2 60.4 L ABG PO2/FiO2 Ratio 1.51 ABG HCO3 26.1 H ABG O2 Saturation 89.5 L ABG O2 Content 20.3 ABG Base Excess -0.5 A-a Gradient 167.8 Oxyhemoglobin 87.8 L* Total Hemoglobin 16.5 O2 Delivery Device Non-invasive vent O2 Liters/Min Vent Rate 16 FiO2 40 Expiratory Pressure 6 Inspiratory Pressure 12 Sodium 137 Potassium 5.7 H Chloride 98 Carbon Dioxide 30 Anion Gap 9 BUN 50 H Creatinine 1.81 H Estim Creat Clear Calc 26 Estimated GFR 28 L Glucose 137 H Lactic Acid Calcium 8.6 Total Bilirubin AST ALT Alkaline Phosphatase Troponin I 0.507 H* D Total Protein Albumin Procalcitonin Nasal MRSA (PCR) 08/06/25 08/06/25 08/06/25 03:55 05:03 06:51 WBC 8.4 RBC 5.39 Hgb 15.0 Hct 50.2 H MCV 93.1 MCH 27.8 MCHC 29.9 L RDW 16.3 H Plt Count 201 MPV 10.7 H Immature Gran % (Auto) 1.2 H Neut % (Auto) 89.0 H Lymph % (Auto) 7.2 L Falls % (Auto) 2.5 L Eos % (Auto) 0.0 Baso % (Auto) 0.1 L Lymph # (Auto) 0.60 L Falls # (Auto) 0.2 Eos # (Auto) 0.0 Baso # (Auto) 0.0 Abs Immat Gran (auto) 0.10 H Absolute Neuts (auto) 7.4 H Absolute Nucleated RBC 0.020 H Band Neutrophils % Not Reportable Nucleated RBC % 0.2 Platelet Estimate Adequate Anisocytosis 1+ Schistocytes None seen Puncture Site Right radial ABG pH 7.299 L ABG pCO2 63.5 H* ABG pO2 72.3 L ABG PO2/FiO2 Ratio 1.45 ABG HCO3 30.5 H ABG O2 Saturation 92.6 L ABG O2 Content 19.8 ABG Base Excess 2.1 A-a Gradient 212.8 Oxyhemoglobin 90.8 Total Hemoglobin 15.5 O2 Delivery Device Non-invasive vent O2 Liters/Min Not Reportable Vent Rate 18 FiO2 50 Expiratory Pressure 8 Inspiratory Pressure 16 Sodium 136 L Potassium 5.8 H Chloride 99 Carbon Dioxide 28 Anion Gap 9 BUN 54 H Creatinine 1.75 H Estim Creat Clear Calc 24 Estimated GFR 29 L Glucose 121 H Lactic Acid 1.4 Calcium 8.3 L Total Bilirubin 1.1 AST 49 H ALT 33 Alkaline Phosphatase 88 Troponin I Total Protein 6.4 Albumin 3.3 L Procalcitonin 0.4 Nasal MRSA (PCR) Not detected 08/06/25 08:24 WBC RBC Hgb Hct MCV MCH MCHC RDW Plt Count MPV Immature Gran % (Auto) Neut % (Auto) Lymph % (Auto) Falls % (Auto) Eos % (Auto) Baso % (Auto) Lymph # (Auto) Falls # (Auto) Eos # (Auto) Baso # (Auto) Abs Immat Gran (auto) Absolute Neuts (auto) Absolute Nucleated RBC Band Neutrophils % Nucleated RBC % Platelet Estimate Anisocytosis Schistocytes Puncture Site Right radial ABG pH 7.362 ABG pCO2 53.9 H ABG pO2 73.4 L ABG PO2/FiO2 Ratio 1.84 ABG HCO3 29.9 H ABG O2 Saturation 94.0 L ABG O2 Content 20.6 ABG Base Excess 3.1 A-a Gradient 240.4 Oxyhemoglobin 92.6 Total Hemoglobin 15.8 O2 Delivery Device Non-invasive vent O2 Liters/Min 4.0 Vent Rate FiO2 40 Expiratory Pressure Inspiratory Pressure Sodium Potassium Chloride Carbon Dioxide Anion Gap BUN Creatinine Estim Creat Clear Calc Estimated GFR Glucose Lactic Acid Calcium Total Bilirubin AST ALT Alkaline Phosphatase Troponin I Total Protein Albumin Procalcitonin Nasal MRSA (PCR) Quality VTE Prophylaxis VTE prophylaxis: pharmacologic ordered Hospitalist MIPS Advance Care Plan I have confirmed that the patient's Advanced Care Plan is present, code status is documented, or surrogate decision maker is listed in patient medical record.: Yes Medication Reconciliation I have utilized all available resources to obtain, update and review the cristal ents current medications (includes all prescriptions, OTC, herbals, cannabis, and nutritional supplements).: Yes
--- NOTE | 2025-08-06 09:39 | ECG_ITS ---
Test Date: 2025-08-06 10:09:15 Measurements Intervals [place] Rate: 65 P: 44 UT: 207 QRS: 114 QRSD: 100 T: 92 QT: 389 QTc: 407 Interpretive Statements SINUS RHYTHM WITH OCCASIONAL SUPRAVENTRICULAR PREMATURE COMPLEXES RIGHT AXIS DEVIATION POSSIBLE LEFT ATRIAL ENLARGEMENT CONSIDER ANTERIOR INFARCT, AGE INDETERMINATE BORDERLINE ST-T WAVE ABNORMALITY- HIGH LATERAL LEADS ABNORMAL ECG Compared to ECG 08/05/2025 12:25:04 HEART RATE HAS INCREASED Electronically Signed On 08-06-2025 10:45:27 CDT by Parish Bird D.O.
[2025-08-06] MEDS: INSULIN HUMAN REGULAR (*BKC) 100 UNITS/ML IV PUSH (10:15)
[2025-08-06] MEDS: SODIUM POLYSTYRENE SULFONONATE 15 GM/60 ML BTL 30 GM PO (10:15)
[2025-08-06] MEDS: DEXTROSE 50% 25 GM/50 ML SYRINGE IV PUSH (10:15)
[2025-08-06] MEDS: CALCIUM GLUC 1,000 MG/NS 50 ML 1,000 MG/50 ML BAG 100 MG IVPB (10:15)
--- NOTE | 2025-08-06 10:38 | PM.CNCAR ---
Assessment and Plan Assessment and plan (1) Right-sided heart failure: Code(s): I50.810 - Right heart failure, unspecified Status: Acute (2) Cor pulmonale: Code(s): I27.81 - Cor pulmonale (chronic) Status: Acute Plan This is a 60-year-old lady with chronic COPD unfortunate with ongoing cigarette smoking who has chronic previously well-documented pulmonary hypertension with picture of cor pulmonale. None of this in my opinion represents acute pathology. Her troponin levels were sampled and of course they will be somewhat elevated in the setting this is NOT indicative of an acute coronary event. In the setting of severe pulmonary hypertension her BNP levels of course are also all was going to be elevated. We should continue lower extremity elevation and IV furosemide to try to improve her edema. We should stop spironolactone because of her hyperkalemia. Her physicians have been speaking to her for years about smoking cessation and she has chosen to continue to smoke which is of course unfortunate. Ulises Goff MD [facility] History of Present Illness History of Present Illness Consult date/time: 08/06/25 10:38 Reason For Visit: Acute Resp Failure/CHF/ Pneumonia Narrative: This is a 60-year-old lady that I am seeing at the request of the hospitalist because of diagnosis of congestive heart failure. She is not known to me prior to this consultation but is known to physicians in [place] and up in [place] regarding severe COPD and pulmonary hypertension. The patient is a long-standing cigarette smoker and is known to have relatively severe COPD which is oxygen dependent. She takes 3 L of nasal cannula oxygen chronically. She is known to have secondary polycythemia because of this and severe pulmonary hypertension records indicate estimated PA pressures on echocardiogram of what 85 mmHg. Her left ventricular systolic function has been normal. She is not known to have any serious left-sided valve disease. She unfortunately has continued to smoke cigarettes. She lives at home with her daughter who is a registered nurse who brought her to the emergency room in [place] because of obvious cyanosis with blue lips and worsening of chronic shortness of breath despite her oxygen supplementation. She does have chronic lower extremity edema which is a bit worse than it normally is at her baseline. She is not known to have any overt coronary artery disease in the past. Her laboratory data for some reason included troponin levels that were out of normal range and nitric peptide level that was very high. I believe this led to concern regarding acute heart failure prompting this consultation. It does not seem like any of her problems are acute. Her lab data is also remarkable for chronic kidney disease and hyperkalemia. Her medication list does include spironolactone which I mention to the patient should be discontinued in this setting. Review of Systems Constitutional: Constitutional: Reports lethargy Eyes: Eyes: Reports no additional eye complaints ENT: Reports system reviewed and no additional complaints, except as documented Cardiovascular: Cardiovascular: Reports pedal edema and Reports leg edema Respiratory: Respiratory: Reports as per HPI and Reports dyspnea Gastrointestinal: Gastrointestinal: Reports no additional gastrointestinal complaints Musculoskeletal: Musculoskeletal: Reports no additional musculoskeletal complaints Integumentary/Breasts: Skin/Breast: Reports system reviewed and no additional complaints, except as docu Neurologic: Reports system reviewed and no additional complaints, except as documented Endocrine: Endocrine: Reports no additional endocrine complaints Hematologic/Lymphatic: Hematologic/Lymphatic: Reports no additional hematologic/lymphatic complaints Allergic/Immunologic: Allergic/Immunologic: Reports no additional allergic/immunologic complaints [facility] Past Medical History Medical History GERD (gastroesophageal reflux disease) Diverticulitis Asthma CVA (cerebral vascular accident) Cigarette nicotine dependence Sleep apnea Hypoxemic respiratory failure, chronic CKD stage 3a, GFR 45-59 ml/min Eczema Hypertension associated with type 2 diabetes mellitus COPD (chronic obstructive pulmonary disease) Surgical History Surgical History History of tubal ligation 1986 Family History Family History Mother Breast cancer Father Diabetes mellitus Emphysema, unspecified Other Cerebrovascular accident Heart disease Social History Social History Smoking packs per day: 1 Smoking cigarettes per day: 20.0 Years smoked: 45 Smoking pack-years: 45.00 Smoking status: Current every day smoker Tobacco type: cigarettes Second hand tobacco smoke exposure: Yes Alcohol intake: never Substance use: never Substance use type: does not use Lack of Transportation: No Lack of Food: Never True Current Housing: I Have Housing Concerned About Future Housing: No Difficulty Paying Gas/Electric Bills: No Difficulty Paying for Meds: No Currently Unemployed: No Education: Decline to Answer Difficulty w/ Childcare or Family Care: No Living arrangements: alone Additional living arrangements comments: . 4 Children. Occupation/Education: retired Additional occupation/education comments: Prior Occupation: [employer] Gender identity (if verbalized by the patient): Female Spiritual care concerns: No Meds Home Medications and Allergies Home Medications ?Medication ?Instructions ?Recorded ?Confirmed ?Type ipratropium bromide 18 1 puff inhalation BID 03/19/22 08/05/25 History mcg/actuation aerosol inhaler albuterol sulfate 90 mcg/actuation See Rx Instructions .Route 06/28/24 08/05/25 Rx aerosol inhaler (Ventolin HFA) .COMPLEX #18 grams mecobalamin (vitamin B12) 1,000 1,000 mcg PO DAILY 01/05/25 08/05/25 History mcg chewable tablet (B12 Active) montelukast 10 mg tablet See Rx Instructions .Route 04/04/25 08/05/25 Rx .COMPLEX #90 tabs ondansetron HCl 4 mg tablet 4 mg PO Q8H PRN nausea and 04/07/25 08/05/25 Rx vomiting #20 tabs ipratropium bromide 17 See Rx Instructions .Route 05/02/25 08/05/25 Rx mcg/actuation HFA aerosol inhaler .COMPLEX #12.9 grams (Atrovent HFA) spironolactone 25 mg tablet See Rx Instructions .Route 05/16/25 08/05/25 Rx .COMPLEX #90 tabs lisinopril 5 mg tablet 5 mg PO DAILY #90 tabs 05/19/25 08/05/25 Rx fluticasone furoate 200 See Rx Instructions .Route 05/30/25 08/05/25 Rx mcg-vilanterol 25 mcg/dose .COMPLEX #60 grams inhalation powder (Breo Ellipta) furosemide 20 mg tablet See Rx Instructions .Route 05/30/25 08/05/25 Rx .COMPLEX #90 tabs lovastatin 40 mg tablet See Rx Instructions .Route 06/21/25 08/05/25 Rx .COMPLEX #90 tabs clopidogrel 75 mg tablet See Rx Instructions .Route 07/11/25 08/05/25 Rx .COMPLEX #90 tabs digoxin 125 mcg (0.125 mg) tablet See Rx Instructions .Route 07/18/25 08/05/25 Rx .COMPLEX #90 tabs gabapentin 300 mg capsule See Rx Instructions .Route 07/25/25 08/05/25 Rx .COMPLEX #360 caps metformin 1,000 mg tablet See Rx Instructions .Route 07/25/25 08/05/25 Rx .COMPLEX #180 tabs Allergies Allergy/AdvReac Type Severity Reaction Status Date / Time No Known Allergies Allergy Verified 08/05/25 19:08 Vital Signs Vital Signs - 24 hr 08/05/25 18:52 08/05/25 19:51 08/05/25 20:00 Temperature 36.3 C L 36.4 C L Pulse Rate 58 L 60 59 L Respiratory Rate 27 H 22 H Blood Pressure 149/80 H 177/99 H Pulse Oximetry 90 99 Oxygen Delivery Oxygen Flow Rate Fraction of Inspired Oxygen 08/05/25 20:00 08/05/25 20:40 08/05/25 20:42 Temperature Pulse Rate 84 84 Respiratory Rate 20 20 Blood Pressure Pulse Oximetry 97 Oxygen Delivery BiPAP BiPAP Oxygen Flow Rate Fraction of Inspired Oxygen 08/05/25 20:52 08/05/25 22:00 08/06/25 00:00 Temperature Pulse Rate 86 62 Respiratory Rate 20 Blood Pressure Pulse Oximetry Oxygen Delivery BiPAP Oxygen Flow Rate Fraction of Inspired Oxygen 08/06/25 00:00 08/06/25 00:00 08/06/25 00:23 Temperature 36.4 C Pulse Rate 60 60 59 L Respiratory Rate 19 19 Blood Pressure 165/75 H Pulse Oximetry 100 100 Oxygen Delivery BiPAP Oxygen Flow Rate Fraction of Inspired Oxygen 08/06/25 01:34 08/06/25 01:42 08/06/25 02:00 Temperature Pulse Rate 58 L 59 L 61 Respiratory Rate 19 19 Blood Pressure Pulse Oximetry Oxygen Delivery Oxygen Flow Rate Fraction of Inspired Oxygen 08/06/25 02:52 08/06/25 04:00 08/06/25 04:00 Temperature 36.4 C Pulse Rate 57 L 58 L Respiratory Rate 20 19 Blood Pressure 140/63 Pulse Oximetry 100 99 Oxygen Delivery BiPAP BiPAP Oxygen Flow Rate Fraction of Inspired Oxygen 08/06/25 04:00 08/06/25 06:00 08/06/25 07:15 Temperature Pulse Rate 60 57 L 97 Respiratory Rate 19 Blood Pressure Pulse Oximetry Oxygen Delivery Oxygen Flow Rate Fraction of Inspired Oxygen 08/06/25 07:20 08/06/25 07:27 08/06/25 07:46 Temperature 36.6 C Pulse Rate 94 61 58 L Respiratory Rate 49 H 21 H 24 H Blood Pressure 118/67 Pulse Oximetry 99 95 Oxygen Delivery BiPAP Oxygen Flow Rate Fraction of Inspired Oxygen 08/06/25 08:00 08/06/25 08:00 08/06/25 08:15 Temperature Pulse Rate 62 58 L 62 Respiratory Rate 24 H Blood Pressure Pulse Oximetry 95 Oxygen Delivery BiPAP Oxygen Flow Rate Fraction of Inspired Oxygen 40 08/06/25 08:42 08/06/25 08:43 08/06/25 08:43 Temperature Pulse Rate Respiratory Rate Blood Pressure Pulse Oximetry 100 96 Oxygen Delivery BiPAP Nasal Cannula Nasal Cannula Oxygen Flow Rate 4 4 Fraction of Inspired Oxygen 08/06/25 10:00 Temperature Pulse Rate 66 Respiratory Rate Blood Pressure Pulse Oximetry Oxygen Delivery Oxygen Flow Rate Fraction of Inspired Oxygen Exam Const: Other: Chronically ill-appearing woman appearing older than her stated age wearing nasal cannula oxygen HENMT: Face/Nose/Sinus: Normal nares present Eyes: Sclera: sclerae normal Neck: Neck: supple Other: Jugular venous pressure is elevated to the angle of the jaw Resp: Effort & Inspection: normal respiratory effort Other: Prolonged expiratory phase and expiratory rhonchi noted centrally. No active wheezing or rales Cardio: Rate: regular rate Rhythm: regular rhythm Other: Right parasternal lift is noted, grade 2 systolic murmur at the left sternal border also grade 2 diastolic murmur audible at the left sternal border as well GI: GI Palp: Yes Soft to palpation Skin: Other: Cyanotic Neuro: Other: Alert and oriented x3 Extrem: Other: Dark lower extremity arterial perfusion is adequate chronic edema noted Results Labs and Meds 08/06/25 03:55 08/06/25 03:55 Lab results: Cardiac Enzymes 08/05/25 08/06/25 Range/Units 19:27 03:55 AST 49 H (14-36) U/L Troponin I 0.507 H* D (0.000-0.034) ng/mL CBC 08/06/25 Range/Units 03:55 WBC 8.4 (4.5-10.0) K/mm3 RBC 5.39 (4.2-5.4) M/mm3 Hgb 15.0 (12.0-15.0) g/dL Hct 50.2 H (37.0-47.0) % Plt Count 201 (150-375) k/mm3 Lymph # (Auto) 0.60 L (0.9-3.2) K/mm3 Sampson # (Auto) 0.2 (0.1-0.6) K/mm3 Eos # (Auto) 0.0 (0-0.3) K/mm3 Baso # (Auto) 0.0 (0.0-0.1) K/mm3 Comprehensive Metabolic Panel 08/05/25 08/06/25 Range/Units 22:33 03:55 Sodium 137 136 L (137-145) mmol/L Potassium 5.7 H 5.8 H (3.4-5.0) mmol/L Chloride 98 99 (98-107) mmol/L Carbon Dioxide 30 28 (22-30) mmol/L BUN 50 H 54 H (7-17) mg/dL Creatinine 1.81 H 1.75 H (0.7-1.0) mg/dL Glucose 137 H 121 H (65-110) mg/dL Calcium 8.6 8.3 L (8.4-10.2) mg/dL AST 49 H (14-36) U/L ALT 33 (6-35) U/L Alkaline Phosphatase 88 (38-126) U/L Total Protein 6.4 (6.3-8.2) g/dL Albumin 3.3 L (3.5-5.1) g/dL Intake and Output 08/05/25 08/06/25 08/06/25 23:59 07:59 15:59 Intake Total 50 50 Balance 50 50 Intake: IV 50 50 Piperacillin/Tazobactam Sod 3. 50 50 375 gm In Sodium Chloride 0.9% IV 50 ml @ 100 mls/hr IVPB Q6H [facility] Rx#:[id number] Other: # Unmeasured Voids 1 Patient Weight 08/06/25 23:59 Weight 62.1 kg
[2025-08-06] MEDS: PERFLUTREN LIPID MICROSPHERES 1.5 ML VIAL DILUTED TO 10 ML TOTAL VOLUME IV PUSH (11:51)
--- NOTE | 2025-08-06 11:52 | IVDEFINITY ---
Prior to administration of IV Definity the patient was educated on the risks and benefits of the imaging enhancing agent including potential adverse side effects. The patient verbalized understanding. Allergies were verified. No exclusion criteria were identified and at least one of the following inclusion criteria were met: 1) physician request, 2) patient technically difficult to image (per the [place] [employer] guidelines of two or more segments not discernable within the apical view), or 3) questionable left ventricular function. ?
--- NOTE | 2025-08-06 12:58 | PCSTNOTE ---
Please refer to the Bedside Swallow Evaluation in the EMR. Please note, silent aspiration cannot be ruled out at bedside.
[2025-08-06 12:59] LABS: Potassium 4.5 mmol/L (3.4-5.0)
[2025-08-06 13:22] LABS: Troponin I 1.270 ng/mL (0.000-0.034)
--- NOTE | 2025-08-06 14:35 | PHAR ---
PT'S HOME MED DIETARY SUPPLEMENT MINI THIN 25/50 CAPSULES VERIFIED BY PHARMACY
--- NOTE | 2025-08-06 15:05 | PC.NURSE ---
On 08/06/25, the student, [ Alicia Dailey ], provided care and completed [facility] documentation on this patient. I have reviewed the student's documentation and agree with the findings.
--- NOTE | 2025-08-06 15:12 | PC.NURSE ---
On 08/06/25, the student, [Alysha Canales ], provided care and completed [facility] documentation on this patient. I have reviewed the student's documentation and agree with the findings.
[2025-08-06] MEDS: MONTELUKAST SODIUM 10 MG TABLET PO (20:56)
[2025-08-07] VITALS (16 sets, daily range): BP systolic 117–163; BP diastolic 72–99; PULSE 59–150; RESP 18–22; TEMP 36.3–36.8; O2SAT 88–96
[2025-08-07] MEDS: PIPERACILLIN/TAZOBACTAM SOD 3.375 GM in SODIUM CHLORIDE 0.9% IV 50 ML IVPB ×3 (01:58→17:54)
[2025-08-07] MEDS: IPRATROPIUM 0.5 MG/ALBUTEROL SULFATE 2.5 MG (BASE) AMPUL.NEB 3 ML INHALATION ×4 (02:05→20:02)
[2025-08-07] MEDS: ACETYLCYSTEINE 20% INHAL SOLN 800 MG/4 ML VIAL 200 MG INHALATION ×4 (02:06→20:03)
[2025-08-07 04:16] LABS: Hematocrit 49.4 % (37.0-47.0); Hemoglobin 15.2 g/dL (12.0-15.0); Mean Corpuscular HGB Conc 30.8 g/dl (32-36); Mean Corpuscular Hemoglobin 28.4 pg (26-34); Mean Corpuscular Volume 92.2 fl (80-100); Platelet Count Result 171 k/mm3 (150-375); Red Blood Count 5.36 M/mm3 (4.2-5.4); White Blood Count 11.1 K/mm3 (4.5-10.0)
[2025-08-07 04:30] LABS: Anion Gap 7 mmol/L (4-12); Blood Urea Nitrogen 57 mg/dL (7-17); Calcium 8.1 mg/dL (8.4-10.2); Carbon Dioxide 37 mmol/L (22-30); Chloride 96 mmol/L (98-107); Estimated CRCL calculation 24 ml/min; Estimated Glomerular Filt Rate 30; Glucose 143 mg/dL (65-110); Potassium 3.4 mmol/L (3.4-5.0); Sodium 140 mmol/L (137-145)
--- NOTE | 2025-08-07 08:42 | P.PNIM_ITS ---
Progress Note: A&P Assessment and Plan (1) Acute hypoxic respiratory failure: Code(s): J96.01 - Acute respiratory failure with hypoxia Status: Inactive Assessment and Plan: Acute respiratory failure likely multifactorial including possible CHF, aspiration pneumonia, obstructive bronchus causing collapse of the right middle lobe, COPD. O2 at home - 3L NC. Chest CT completed on 08/05 which showed mild right lower lobe aspiration pneumonia, right middle lobe collapse with obstructive bronchus, interstitial pulmonary edema and/or pneumonitis superimposed upon emphysema, started on BiPAP at [facility]. ABG shows hypercarbia improved with BiPAP setting changes the patient is likely near baseline (2) Sepsis: Qualifiers: Sepsis type: sepsis due to unspecified organism Sepsis acute organ dysfunction status: with acute organ dysfunction Severe sepsis acute organ dysfunction type: acute respiratory failure Acute respiratory failure type: with hypoxia Severe sepsis shock status: without septic shock Qualified Code(s): A41.9 - Sepsis, unspecified organism; R65.20 - Severe sepsis without septic shock; J96.01 - Acute respiratory failure with hypoxia Code(s): A41.9 - Sepsis, unspecified organism Status: Acute Assessment and Plan: Patient met SIRS criteria due to tachypnea and hypoxia. Initial lactic 4.7, repeat 4.0. Imaging concerning for aspiration pneumonia., patient denies aspiration. UTI culture and sensitivity with Group B strep Blood cultures pending as of 08/07 started on Levaquin in the ED, transition to Zosyn on 08/05 (3) Aspiration pneumonia: Qualifiers: Aspiration pneumonia type: unspecified Laterality: right Lung location: lower lobe of lung Qualified Code(s): J69.0 - Pneumonitis due to inhalation of food and vomit Code(s): J69.0 - Pneumonitis due to inhalation of food and vomit Status: Inactive Assessment and Plan: CT showed mild right lower lobe aspiration pneumonia. Patient initially started on Levaquin at [facility] on 08/05. Will continue as Zosyn q.6. Sputum culture pending Antibiotics as above Patient passed bedside swallow by nursing (4) Mucus plugging of bronchi: Code(s): T17.500A - Unspecified foreign body in bronchus causing asphyxiation, initial encounter Status: Acute Assessment and Plan: CPT Mucinex brittni receiving [facility] Robert, could consider adding Mucomyst nebulizer (5) CHF (congestive heart failure): Qualifiers: Heart failure chronicity: acute Heart failure type: unspecified Qualified Code(s): I50.9 - Heart failure, unspecified Code(s): I50.9 - Heart failure, unspecified Status: Inactive Assessment and Plan: Initially given Lasix 60 mg IV at [facility], continue as 40 mg b.i.d. Hold home Lasix 20 mg daily, continue digoxin and spironolactone. Cardiology consult IV Lasix b.i.d. monitor for worsening MRAK BiPAP Fluid restriction Daily weights Echocardiogram EF over 70%, Small amount of tricuspid insufficiency, jet was difficult to interrogate for estimation of PA pressure which is previously known to be severely elevated. (6) Elevated troponin: Code(s): R79.89 - Other specified abnormal findings of blood chemistry Status: Inactive Assessment and Plan: Reviewed initial EKG, showed sinus bradycardia with first-degree AV block. No significant ST depressions or elevations appreciated. High suspicion for type 2 TX given the patient has been significantly hypoxic. Trend troponin till peaked continue Plavix No ACS, MARK and cor pulmonale (7) COPD (chronic obstructive pulmonary disease): Qualifiers: COPD type: unspecified COPD Qualified Code(s): J44.9 - Chronic obstructive pulmonary disease, unspecified Code(s): J44.9 - Chronic obstructive pulmonary disease, unspecified Status: Acute Assessment and Plan: COPD exacerbation DuoNeb brittni given Solu-Medrol 125 mg IV in the ED, continue as prednisone 40 mg p.o. x5 days continue montelukast (8) Acute hyperkalemia: Code(s): E87.5 - Hyperkalemia Status: Inactive Assessment and Plan: Mild hyperkalemia noted upon admission, K 5.6. Initially treated with sodium bicarbonate and insulin/dextrose. Hyper kalemia increased on a.m. labs Lasix, Lokelma and insulin dextrose given 08/07 K 3.4, supplemental 40 mEq given due to diuresis Telemetry monitoring (9) Hypertension associated with type 2 diabetes mellitus: Code(s): E11.59 - Type 2 diabetes mellitus with other circulatory complications; I10 - Essential (primary) hypertension Status: Acute Assessment and Plan: Hold lisinopril due to MARK Accu-Cheks a.c. HS Hypoglycemia protocol (10) Acute renal injury: Code(s): N17.9 - Acute kidney failure, unspecified Status: Acute Assessment and Plan: Unable to do IV fluids due to, CHF, respiratory distress and fluid overload Currently receiving Lasix Plan Code Status: DNR Subjective Date/time seen: 08/07/25 08:42 Interval history: Breathing better. Ate full breakfast. Denied pain. Swelling much improved since admission. Review of Systems Review of Systems: All systems reviewed & are unremarkable except as noted in HPI and below Exam Narrative: General: Chronically ill-appearing no acute distress. HEENT: normocephalic, atraumatic. Mucous membranes moist. PERRLA, bilateral sclera anicteric, no conjunctival injection. Neck supple without JVD, lymphadenopathy, or bruit. Respiratory: Coarse BS with rhonchi Cardiovascular: Regular rate and rhythm, normal S1-S2. No murmurs, rubs, or clicks. . Abdomen: Soft, round, no pulsatile masses, nondistended and nontender. No r ebound, no guarding. No CVA tenderness, no hepatosplenomegaly. Bowel sounds present to all four quadrants. Extremities: No edema present. Neuro: Cranial nerves 2-12 intact without focal deficit. Skin: Warm, dry, and intact, without rash, erythema, or lesion. Psych: Alert and orientated x 4. PERRLA. pleasant, cooperative, normal speech, normal affect Objective Data Vital Signs Vital Signs: Vital Signs - 24 hr 08/06/25 08:43 08/06/25 08:43 08/06/25 10:00 Temperature Pulse Rate 66 Respiratory Rate Blood Pressure Pulse Oximetry 100 96 Oxygen Delivery Nasal Cannula Nasal Cannula Oxygen Flow Rate 4 4 Fraction of Inspired Oxygen 08/06/25 11:00 08/06/25 11:10 08/06/25 11:28 Temperature 98 F 98 F Pulse Rate 63 63 Respiratory Rate 22 H 22 H Blood Pressure 133/52 L 133/52 L Pulse Oximetry 95 94 94 Oxygen Delivery Nasal Cannula Oxygen Flow Rate 4 Fraction of Inspired Oxygen 08/06/25 12:00 08/06/25 12:00 08/06/25 13:14 Temperature Pulse Rate 63 82 82 Respiratory Rate 22 H 18 Blood Pressure Pulse Oximetry 94 Oxygen Delivery Nasal Cannula Oxygen Flow Rate 3 Fraction of Inspired Oxygen 08/06/25 13:19 08/06/25 15:49 08/06/25 16:00 Temperature 97.9 F Pulse Rate 84 78 84 Respiratory Rate 18 24 H Blood Pressure 143/84 H Pulse Oximetry 92 Oxygen Delivery Oxygen Flow Rate Fraction of Inspired Oxygen 08/06/25 20:00 08/06/25 20:00 08/06/25 20:00 Temperature 98.0 F Pulse Rate 85 86 Respiratory Rate 18 Blood Pressure 147/81 H Pulse Oximetry 100 98 Oxygen Delivery BiPAP Oxygen Flow Rate Fraction of Inspired Oxygen 40 08/06/25 20:10 08/06/25 20:10 08/06/25 20:16 Temperature Pulse Rate 91 91 Respiratory Rate 16 16 Blood Pressure Pulse Oximetry 95 Oxygen Delivery Nasal Cannula Oxygen Flow Rate 3 Fraction of Inspired Oxygen 08/06/25 20:27 08/06/25 23:55 08/07/25 00:00 Temperature 98.1 F Pulse Rate 83 67 65 Respiratory Rate 23 H 21 H 18 Blood Pressure 145/80 H Pulse Oximetry 93 96 96 Oxygen Delivery BiPAP BiPAP Oxygen Flow Rate Fraction of Inspired Oxygen 08/07/25 00:00 08/07/25 02:08 08/07/25 02:08 Temperature Pulse Rate 60 61 61 Respiratory Rate 22 H 22 H Blood Pressure Pulse Oximetry 96 Oxygen Delivery BiPAP Oxygen Flow Rate Fraction of Inspired Oxygen 08/07/25 04:00 08/07/25 08:00 Temperature 97.5 F L Pulse Rate 59 L 72 Respiratory Rate 21 H Blood Pressure 157/72 H Pulse Oximetry 90 Oxygen Delivery Oxygen Flow Rate Fraction of Inspired Oxygen Intake/Output Intake/Output: Intake & Output 08/04/25 08/05/25 08/06/25 08/07/25 23:59 23:59 23:59 23:59 Intake Total 50 855 70 Output Total 2400 750 Balance 78 -[phone] -063 Meds/Results Medications: Active Medications Generic Name Dose Route Start Last Admin Trade Name Freq PRN Reason Stop Dose Admin Acetaminophen 650 mg 08/05/25 18:40 Acetaminophen 325 Mg Tablet PO Q4H PRN Mild Pain (1-3) or Fever Hydrocodone Bitart/Acetaminophen 1 tab 08/05/25 18:40 Hydrocodone/Acetaminophen (*Crx) 5-325 Mg Tablet PO Q4H PRN Moderate Pain (4-6) Acetylcysteine 200 mg 08/06/25 08:00 08/07/25 02:06 Acetylcysteine 20% Inhal Soln 800 Mg/4 Ml Vial INHALATION 200 mg Q6HRT BRITTNI Administration Al Hydrox/Mg Hydrox/Simethicone 30 ml 08/05/25 18:40 Mag Hydrox/Al Hydrox/Simeth 30 Ml Udc PO QID PRN Dyspepsia Albuterol/Ipratropium 3 ml 08/05/25 20:00 08/07/25 02:05 Ipratropium 0.5 Mg/Albuterol Sulfate 2.5 Mg (Base) Ampul.Neb 3 Ml INHALATION 3 ml Q6HRT BRITTNI Administration Benzonatate 100 mg 08/05/25 18:53 Benzonatate 100 Mg Capsule PO TID PRN Cough Bisacodyl 5 mg 08/05/25 18:40 Bisacodyl 5 Mg Tablet Ec PO DAILY PRN Constipation Clopidogrel Bisulfate 75 mg 08/06/25 09:00 08/06/25 08:16 Clopidogrel Bisulfate 75 Mg Tablet PO 75 mg DAILY BRITTNI Administration Cyanocobalamin 1,000 mcg 08/06/25 09:00 08/06/25 08:16 Cyanocobalamin 1,000 Mcg Tablet PO 1,000 mcg DAILY BRITTNI Administration Dextrose 12.5 gm 08/06/25 09:36 Dextrose 50% 25 Gm/50 Ml Syringe IV PUSH PRN PRN Hypoglycemia Protocol Digoxin 125 mcg 08/06/25 09:00 08/06/25 08:15 Digoxin Tab 125 Mcg Tablet PO 125 mcg DAILY BRITTNI Administration Enoxaparin Sodium 30 mg 08/06/25 09:00 08/06/25 08:14 Enoxaparin 30 Mg/0.3 Ml Syringe SUB-Q 30 mg DAILY BRITTNI Administration Furosemide 40 mg 08/06/25 09:00 08/06/25 17:00 Furosemide Inj 40 Mg/4 Ml Vial IV PUSH 40 mg BID BRITTNI Administration Gabapentin 300 mg 08/05/25 21:00 08/06/25 20:57 Gabapentin 300 Mg Capsule PO 300 mg QID BRITTNI Administration Glucose 15 gm 08/06/25 09:36 Glucose Oral Gel 15 Gm Of Glucse In 37.5 Gm Tube PO PRN PRN Hypoglycemia Protocol Guaifenesin 600 mg 08/05/25 21:00 08/06/25 20:56 Guaifenesin 12 Hr 600 Mg Tabcr PO 600 mg Q12HR BRITTNI Administration Piperacillin Sod/Tazobactam 50 mls @ 100 mls/hr 08/05/25 20:00 08/07/25 07:48 Sod 3.375 gm/ Sodium Chloride IVPB Infused Q6H BRITTNI Infusion Dextrose 1,000 mls @ 100 mls/hr 08/06/25 09:36 Dextrose 5% 1,000 Ml IVPB PRN PRN Hypoglycemia Protocol Insulin Aspart 2 - 5 units 08/06/25 12:00 08/07/25 07:46 Insulin Aspart (*Bkc) 100 Units/Ml SUB-Q Not Given TIDWM BRITTNI Protocol Lisinopril 5 mg 08/06/25 09:00 08/06/25 08:16 Lisinopril 5 Mg Tablet PO 5 mg DAILY BRITTNI Administration Lovastatin 40 mg 08/06/25 09:00 08/06/25 08:16 Lovastatin 20 Mg Tablet PO 40 mg DAILY BRITTNI Administration Methylprednisolone Sodium Succinate 60 mg 08/06/25 06:10 08/07/25 05:49 Methylprednisolone Sod Succ 125 Mg Vial IV PUSH 60 mg Q6HR BRITTNI Administration Montelukast Sodium 10 mg 08/05/25 21:00 08/06/25 20:56 Montelukast Sodium 10 Mg Tablet PO 10 mg HS BRITTNI Administration Non-Formulary (Mini 1 each 08/07/25 09:00 Thin Capsule) PO 09/06/25 08:59 QAM BRITTNI Ondansetron HCl 4 mg 08/05/25 18:40 Ondansetron Inj 4 Mg/2 Ml Vial IV PUSH Q6H PRN Nausea And Vomiting Fluticasone/Salmeterol 2 puff 08/05/25 20:00 08/06/25 20:05 Fluticasone/Salmeterol 230-21 Mcg Inhaler 1 Puff INHALATION 2 puff Q12HRT BRITTNI Administration Radiology Results: ITS Impressions Chest X-Ray 08/06/25 08:27 IMPRESSION: 1. Mild worsening interstitial pulmonary edema and/or pneumonitis. 2. Right basilar aspiration pneumonia poorly seen on chest x-ray as compared to CT, as is right middle lobe atelectasis. Labs Labs: Laboratory Results - last 24 hr 08/06/25 08/06/25 08/06/25 12:37 12:41 16:19 WBC RBC Hgb Hct MCV MCH MCHC RDW Plt Count MPV Sodium Potassium 4.5 Chloride Carbon Dioxide Anion Gap BUN Creatinine Estim Creat Clear Calc Estimated GFR Glucose POC Capillary Glucose 171 H 149 H Calcium Troponin I 1.270 H* 08/06/25 08/07/25 08/07/25 20:32 03:47 07:25 WBC 11.1 H RBC 5.36 Hgb 15.2 H Hct 49.4 H MCV 92.2 MCH 28.4 MCHC 30.8 L RDW 16.2 H Plt Count 171 MPV 10.6 H Sodium 140 Potassium 3.4 Chloride 96 L Carbon Dioxide 37 H Anion Gap 7 BUN 57 H Creatinine 1.72 H Estim Creat Clear Calc 24 Estimated GFR 30 L Glucose 143 H POC Capillary Glucose 260 H 163 H Calcium 8.1 L Troponin I
[2025-08-07] MEDS: FLUTICASONE/SALMETEROL 230-21 MCG INHALER 1 PUFF 2 PUFF INHALATION ×2 (08:46→21:10)
--- NOTE | 2025-08-07 09:52 | P.PNCA_ITS ---
Progress Note: A&P Assessment and Plan (1) Right-sided heart failure: Code(s): I50.810 - Right heart failure, unspecified Status: Acute (2) Cor pulmonale: Code(s): I27.81 - Cor pulmonale (chronic) Status: Acute Plan 60-year-old lady with cor pulmonale related to chronic lung disease from smoking and severe pulmonary hypertension. This is all chronic pathology that has been well evaluated by her physicians elsewhere according to the records. Her echocardiogram here as expected demonstrates severe right ventricular dilation and systolic dysfunction and as well as stigmata of RV pressure overload. Her edema is improved with IV furosemide. This should be discontinued so as to avoid excessive renal insufficiency. Will transition her back to oral Lasix. Ulises Goff MD [facility] Subjective Date/time seen: Date of service: 08/07/25 09:52 Interval history: Follow-up visit in this 60-year-old lady with: Severe oxygen dependent COPD with chronic cigarette smoking. Patient has severe pulmonary hypertension or RV failure and cor pulmonale. She reports to be feeling better since admission. IV furosemide has improved her edema. Appears to be comfortable and bed rest and has no other complaints today. Exam HENMT: Face/Nose/Sinus: Normal nares present Eyes: Sclera: sclerae normal Neck: Neck: supple Resp: Effort & Inspection: normal respiratory effort Other: Prolonged expiratory phase and expiratory rhonchi noted Cardio: Rate: regular rate Rhythm: regular rhythm Other: Right ventricular lift noted, GI: GI Palp: Yes Soft to palpation Auscultation: normal bowel sounds Skin: General skin exam: normal color Neuro: Other: Alert and oriented x3 Extrem: Other: Significantly improved edema lower extremities are no longer tense Objective Data Vital Signs Vital Signs: Vital Signs - 24 hr 08/06/25 10:00 08/06/25 11:00 08/06/25 11:10 Temperature 36.6 C Pulse Rate 66 63 Respiratory Rate 22 H Blood Pressure 133/52 L Pulse Oximetry 95 94 Oxygen Delivery Nasal Cannula Oxygen Flow Rate 4 Fraction of Inspired Oxygen 08/06/25 11:28 08/06/25 12:00 08/06/25 12:00 Temperature 36.6 C Pulse Rate 63 63 82 Respiratory Rate 22 H 22 H Blood Pressure 133/52 L Pulse Oximetry 94 94 Oxygen Delivery Nasal Cannula Oxygen Flow Rate 3 Fraction of Inspired Oxygen 08/06/25 13:14 08/06/25 13:19 08/06/25 15:49 Temperature 36.6 C Pulse Rate 82 84 78 Respiratory Rate 18 18 24 H Blood Pressure 143/84 H Pulse Oximetry 92 Oxygen Delivery Oxygen Flow Rate Fraction of Inspired Oxygen 08/06/25 16:00 08/06/25 20:00 08/06/25 20:00 Temperature 36.7 C Pulse Rate 84 85 86 Respiratory Rate 18 Blood Pressure 147/81 H Pulse Oximetry 100 Oxygen Delivery Oxygen Flow Rate Fraction of Inspired Oxygen 08/06/25 20:00 08/06/25 20:10 08/06/25 20:10 Temperature Pulse Rate 91 Respiratory Rate 16 Blood Pressure Pulse Oximetry 98 95 Oxygen Delivery BiPAP Nasal Cannula Oxygen Flow Rate 3 Fraction of Inspired Oxygen 40 08/06/25 20:16 08/06/25 20:27 08/06/25 23:55 Temperature Pulse Rate 91 83 67 Respiratory Rate 16 23 H 21 H Blood Pressure Pulse Oximetry 93 96 Oxygen Delivery BiPAP BiPAP Oxygen Flow Rate Fraction of Inspired Oxygen 08/07/25 00:00 08/07/25 00:00 08/07/25 02:08 Temperature 36.7 C Pulse Rate 65 60 61 Respiratory Rate 18 22 H Blood Pressure 145/80 H Pulse Oximetry 96 96 Oxygen Delivery BiPAP Oxygen Flow Rate Fraction of Inspired Oxygen 08/07/25 02:08 08/07/25 04:00 08/07/25 08:00 Temperature 36.4 C L Pulse Rate 61 59 L 72 Respiratory Rate 22 H 21 H Blood Pressure 157/72 H Pulse Oximetry 90 Oxygen Delivery Oxygen Flow Rate Fraction of Inspired Oxygen 08/07/25 08:40 08/07/25 08:40 08/07/25 08:49 Temperature Pulse Rate 72 73 Respiratory Rate 20 20 Blood Pressure Pulse Oximetry 95 Oxygen Delivery Nasal Cannula Oxygen Flow Rate 3 Fraction of Inspired Oxygen 32 Intake/Output Intake/Output: Intake & Output 08/04/25 08/05/25 08/06/25 08/07/25 23:59 23:59 23:59 23:59 Intake Total 50 855 70 Output Total 2400 750 Balance 54 -[phone] -787 Meds/Results Medications: Active Medications Generic Name Dose Route Start Last Admin Trade Name Freq PRN Reason Stop Dose Admin Acetaminophen 650 mg 08/05/25 18:40 Acetaminophen 325 Mg Tablet PO Q4H PRN Mild Pain (1-3) or Fever Hydrocodone Bitart/Acetaminophen 1 tab 08/05/25 18:40 Hydrocodone/Acetaminophen (*Crx) 5-325 Mg Tablet PO Q4H PRN Moderate Pain (4-6) Acetylcysteine 200 mg 08/06/25 08:00 08/07/25 08:46 Acetylcysteine 20% Inhal Soln 800 Mg/4 Ml Vial INHALATION 200 mg Q6HRT VEE Administration Al Hydrox/Mg Hydrox/Simethicone 30 ml 08/05/25 18:40 Mag Hydrox/Al Hydrox/Simeth 30 Ml Udc PO QID PRN Dyspepsia Albuterol/Ipratropium 3 ml 08/05/25 20:00 08/07/25 08:46 Ipratropium 0.5 Mg/Albuterol Sulfate 2.5 Mg (Base) Ampul.Neb 3 Ml INHALATION 3 ml Q6HRT VEE Administration Benzonatate 100 mg 08/05/25 18:53 Benzonatate 100 Mg Capsule PO TID PRN Cough Bisacodyl 5 mg 08/05/25 18:40 Bisacodyl 5 Mg Tablet Ec PO DAILY PRN Constipation Clopidogrel Bisulfate 75 mg 08/06/25 09:00 08/06/25 08:16 Clopidogrel Bisulfate 75 Mg Tablet PO 75 mg DAILY VEE Administration Cyanocobalamin 1,000 mcg 08/06/25 09:00 08/06/25 08:16 Cyanocobalamin 1,000 Mcg Tablet PO 1,000 mcg DAILY VEE Administration Dextrose 12.5 gm 08/06/25 09:36 Dextrose 50% 25 Gm/50 Ml Syringe IV PUSH PRN PRN Hypoglycemia Protocol Digoxin 125 mcg 08/06/25 09:00 08/06/25 08:15 Digoxin Tab 125 Mcg Tablet PO 125 mcg DAILY VEE Administration Enoxaparin Sodium 30 mg 08/06/25 09:00 08/06/25 08:14 Enoxaparin 30 Mg/0.3 Ml Syringe SUB-Q 30 mg DAILY VEE Administration Furosemide 40 mg 08/08/25 09:00 Furosemide 40 Mg Tablet PO DAILY VEE Gabapentin 300 mg 08/05/25 21:00 08/06/25 20:57 Gabapentin 300 Mg Capsule PO 300 mg QID VEE Administration Glucose 15 gm 08/06/25 09:36 Glucose Oral Gel 15 Gm Of Glucse In 37.5 Gm Tube PO PRN PRN Hypoglycemia Protocol Guaifenesin 600 mg 08/05/25 21:00 08/06/25 20:56 Guaifenesin 12 Hr 600 Mg Tabcr PO 600 mg Q12HR VEE Administration Piperacillin Sod/Tazobactam 50 mls @ 100 mls/hr 08/05/25 20:00 08/07/25 07:48 Sod 3.375 gm/ Sodium Chloride IVPB Infused Q6H VEE Infusion Dextrose 1,000 mls @ 100 mls/hr 08/06/25 09:36 Dextrose 5% 1,000 Ml IVPB PRN PRN Hypoglycemia Protocol Insulin Aspart 2 - 5 units 08/06/25 12:00 08/07/25 07:46 Insulin Aspart (*Bkc) 100 Units/Ml SUB-Q Not Given TIDWM VEE Protocol Lisinopril 5 mg 08/06/25 09:00 08/06/25 08:16 Lisinopril 5 Mg Tablet PO 5 mg DAILY VEE Administration Lovastatin 40 mg 08/06/25 09:00 08/06/25 08:16 Lovastatin 20 Mg Tablet PO 40 mg DAILY VEE Administration Methylprednisolone Sodium Succinate 60 mg 08/06/25 06:10 08/07/25 05:49 Methylprednisolone Sod Succ 125 Mg Vial IV PUSH 60 mg Q6HR VEE Administration Montelukast Sodium 10 mg 08/05/25 21:00 08/06/25 20:56 Montelukast Sodium 10 Mg Tablet PO 10 mg HS VEE Administration Non-Formulary (Mini 1 each 08/07/25 09:00 Thin 25/50 Capsule) PO 09/06/25 08:59 QAM VEE Ondansetron HCl 4 mg 08/05/25 18:40 Ondansetron Inj 4 Mg/2 Ml Vial IV PUSH Q6H PRN Nausea And Vomiting Fluticasone/Salmeterol 2 puff 08/05/25 20:00 08/07/25 08:46 Fluticasone/Salmeterol 230-21 Mcg Inhaler 1 Puff INHALATION 2 puff Q12HRT VEE Administration Radiology Results: ITS Impressions Chest X-Ray 08/06/25 08:27 IMPRESSION: 1. Mild worsening interstitial pulmonary edema and/or pneumonitis. 2. Right basilar aspiration pneumonia poorly seen on chest x-ray as compared to CT, as is right middle lobe atelectasis. Labs Labs: Laboratory Results - last 24 hr 08/06/25 08/06/25 08/06/25 12:37 12:41 16:19 WBC RBC Hgb Hct MCV MCH MCHC RDW Plt Count MPV Sodium Potassium 4.5 Chloride Carbon Dioxide Anion Gap BUN Creatinine Estim Creat Clear Calc Estimated GFR Glucose POC Capillary Glucose 171 H 149 H Calcium Troponin I 1.270 H* 08/06/25 08/07/25 08/07/25 20:32 03:47 07:25 WBC 11.1 H RBC 5.36 Hgb 15.2 H Hct 49.4 H MCV 92.2 MCH 28.4 MCHC 30.8 L RDW 16.2 H Plt Count 171 MPV 10.6 H Sodium 140 Potassium 3.4 Chloride 96 L Carbon Dioxide 37 H Anion Gap 7 BUN 57 H Creatinine 1.72 H Estim Creat Clear Calc 24 Estimated GFR 30 L Glucose 143 H POC Capillary Glucose 260 H 163 H Calcium 8.1 L Troponin I
[2025-08-07] MEDS: LOVASTATIN 20 MG TABLET 40 MG PO (10:14)
[2025-08-07] MEDS: FUROSEMIDE INJ 40 MG/4 ML VIAL IV PUSH (10:14)
[2025-08-07] MEDS: CLOPIDOGREL BISULFATE 75 MG TABLET PO (10:14)
[2025-08-07] MEDS: guaiFENesin 12 HR 600 MG TABCR PO ×2 (10:14→21:22)
[2025-08-07] MEDS: GABAPENTIN 300 MG CAPSULE PO ×4 (10:14→21:22)
[2025-08-07] MEDS: DIGOXIN TAB 125 MCG TABLET PO (10:14)
[2025-08-07] MEDS: POTASSIUM CHLORIDE 20 MEQ ER TABLET 40 MEQ PO (10:14)
[2025-08-07] MEDS: CYANOCOBALAMIN 1,000 MCG TABLET 1000 MCG PO (10:14)
[2025-08-07] MEDS: ENOXAPARIN 30 MG/0.3 ML SYRINGE SUB-Q (10:15)
[2025-08-07] MEDS: [UNRECOGNIZED DRUG - OTHER] 1 EACH PO (10:21)
[2025-08-07] MEDS: INSULIN ASPART (*BKC) 100 UNITS/ML 8 UNITS SUB-Q (12:21)
--- NOTE | 2025-08-07 16:25 | PC.NURSE ---
This patient, Patty Orozco, was transferred to [[id number] ] on 08/07/25 at 1625. Personal belongings sent with patient. Report given to [JESSICA Johnson @ [phone] ]. Appropriate documentation sent with patient.
--- NOTE | 2025-08-07 16:51 | PC.NURSE ---
This patient, Patty Orozco, was received from 200/ on 08/07/25 at 1651. Patient/family oriented to unit policies and routines.
[2025-08-07] MEDS: INSULIN ASPART (*BKC) 100 UNITS/ML SUB-Q (17:55)
--- NOTE | 2025-08-07 20:38 | ECG_ITS ---
Test Date: 2025-08-07 20:55:28 Measurements Intervals Echo Rate: 131 P: 0 NE: 0 QRS: 118 QRSD: 99 T: -46 QT: 310 QTc: 459 Interpretive Statements ATRIAL FIBRILLATION WITH RAPID VENTRICULAR RESPONSE RIGHT AXIS DEVIATION INCOMPLETE RIGHT BUNDLE BRANCH BLOCK BORDERLINE R WAVE PROGRESSION, ANTERIOR LEADS NONSPECIFIC ST & T-WAVE ABNORMALITY- INFERIOR LEADS BASELINE ARTIFACT- I, III, AVR, AVL, V1-V6 ABNORMAL ECG Compared to ECG 08/06/2025 10:09:15 Incomplete right bundle-branch block now present Sinus rhythm no longer present Electronically Signed On 08-08-2025 06:12:54 CDT by Parish Bird D.O.
[2025-08-07] MEDS: MONTELUKAST SODIUM 10 MG TABLET PO (21:22)
--- NOTE | 2025-08-07 21:24 | P.PNCROSS_ITS ---
Event Note Event Note Event Note: 08/07/20252114 Nursing staff called because the patient had flipped into AFib RVR and had remained tachycardic with heart rates between 130 and 160 for close to an hour. Patient's blood pressures were stable. I gave orders for IV Lopressor 5 mg IV p.r.n. Q 10 minutes x3 for optimal rate control. Prior to the nursing staff being able to administer the medications (approximately 20 minutes later) the patient spontaneously flipped back into normal sinus rhythm. The patient is adamant that she does not have a history of AFib but she interestingly enough is on digoxin at home. Patient does have cor pulmonale which would leave her at increased risk of AFib in and of itself. I did order stat labs at the patient's potassium earlier in the day had been at the lower end of normal. I gave an immediate dose of 40 mEq of p.o. potassium She had been hyperkalemic at the time of admission and her spironolactone and potassium were placed on hold. Given her cardiac irritability I would like her potassium to stay around 4 and her magnesium to be 2 or greater. Subsequently I have given 2 g magnesium sulfate rider and will given additional 20 mEq of potassium in the billet heater hours prior to repeat labs as I suspect patient's potassium is lower due to recent Lasix administration. Patient will be continued will monitor on telemetry.
[2025-08-07] MEDS: INSULIN GLARGINE (*BKC) 100 UNITS/ML 18 UNITS SUB-Q (21:34)
[2025-08-07] MEDS: POTASSIUM CHLORIDE 20 MEQ PACKET (FOR LIQUID) 40 MEQ PO (21:35)
[2025-08-07 22:05] LABS: Blood Urea Nitrogen 54 mg/dL (7-17); Calcium 8.5 mg/dL (8.4-10.2); Chloride 95 mmol/L (98-107); Estimated CRCL calculation 26 ml/min; Estimated Glomerular Filt Rate 32; Glucose 111 mg/dL (65-110); Magnesium 1.9 mg/dL (1.6-2.3); Potassium 3.3 mmol/L (3.4-5.0); Sodium 138 mmol/L (137-145)
[2025-08-07 22:17] LABS: Anion Gap 5 mmol/L (4-12); Carbon Dioxide 38 mmol/L (22-30)
[2025-08-08] VITALS (26 sets, daily range): BP systolic 154–220; BP diastolic 65–110; PULSE 51–85; RESP 18–27; TEMP 36.1–36.2; O2SAT 81–95
[2025-08-08] MEDS: PIPERACILLIN/TAZOBACTAM SOD 3.375 GM in SODIUM CHLORIDE 0.9% IV 50 ML IVPB ×5 (00:22→23:39)
--- NOTE | 2025-08-08 01:12 | PC.NURSE ---
Pt flipped into Afib RVR going as high as the 160s. Obtained EKG to confirm, spoke to Dr. Alcaraz, and [facility] labs. Pt converted on their own. Currently Sinus in the 60s.
[2025-08-08] MEDS: ACETYLCYSTEINE 20% INHAL SOLN 800 MG/4 ML VIAL 200 MG INHALATION ×4 (02:03→20:19)
[2025-08-08] MEDS: IPRATROPIUM 0.5 MG/ALBUTEROL SULFATE 2.5 MG (BASE) AMPUL.NEB 3 ML INHALATION ×4 (02:03→20:18)
[2025-08-08] MEDS: MAGNESIUM SULF 2 GM/WATER 50ML 2 GM/50 ML BAG IVPB (03:19)
[2025-08-08] MEDS: POTASSIUM CHLORIDE 20 MEQ PACKET (FOR LIQUID) PO (03:19)
[2025-08-08 05:00] LABS: Hematocrit 52.0 % (37.0-47.0); Hemoglobin 15.6 g/dL (12.0-15.0); Mean Corpuscular HGB Conc 30.0 g/dl (32-36); Mean Corpuscular Hemoglobin 28.2 pg (26-34); Mean Corpuscular Volume 93.9 fl (80-100); Platelet Count Result 175 k/mm3 (150-375); Red Blood Count 5.54 M/mm3 (4.2-5.4); White Blood Count 10.4 K/mm3 (4.5-10.0)
[2025-08-08 05:39] LABS: Blood Urea Nitrogen 53 mg/dL (7-17); Calcium 8.6 mg/dL (8.4-10.2); Chloride 96 mmol/L (98-107); Estimated CRCL calculation 26 ml/min; Estimated Glomerular Filt Rate 33; Glucose 139 mg/dL (65-110); Potassium 4.0 mmol/L (3.4-5.0); Sodium 142 mmol/L (137-145)
[2025-08-08 05:45] LABS: Carbon Dioxide > 40 mmol/L (22-30)
[2025-08-08] MEDS: FLUTICASONE/SALMETEROL 230-21 MCG INHALER 1 PUFF 2 PUFF INHALATION ×2 (07:19→20:20)
--- NOTE | 2025-08-08 08:32 | PM.PNCARD ---
Progress Note: A&P Assessment and Plan (1) Right-sided heart failure: Code(s): I50.810 - Right heart failure, unspecified Status: Acute Assessment and Plan: She has severe RV dilation and RV systolic dysfunction. Continue p.o. 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 Weber [facility] (2) Cor pulmonale: Code(s): I27.81 - Cor pulmonale (chronic) Status: Acute Assessment and Plan: Related to smoking and severe pulmonary hypertension. Echo shows severe RV dilation and systolic dysfunction. Improved with IV furosemide, has been transitioned to p.o. furosemide (3) Paroxysmal atrial fibrillation: Code(s): I48.0 - Paroxysmal atrial fibrillation Status: Acute Assessment and Plan: She had an episode of atrial fibrillation with RVR last night. She was asymptomatic. Spontaneously converted to sinus rhythm. She does not have a history of AF. Recommend outpatient tele monitoring to observe for recurrence of atrial fibrillation in which situation systemic anticoagulation would be recommended. This can be arranged by her primary marine electronics technician. Continue telemetry monitoring. If further episodes of AF occur please make me aware Cardiology will sign off please call with any questions. Subjective Date/time seen: 08/08/25 08:32 Interval history: Follow-up visit in this 60-year-old lady with: Severe oxygen dependent COPD with chronic cigarette smoking. Patient has severe pulmonary hypertension or RV failure and cor pulmonale. She reports to be feeling better since admission. IV furosemide has improved her edema. Appears to be comfortable and bed rest and has no other complaints today. Date of service 08/08/2025: Feels well this morning. She had an episode of atrial fibrillation with RVR last night but did not feel any palpitations, chest pain, shortness of breath. Review of Systems Constitutional: Constitutional: Reports lethargy Eyes: Eyes: Reports no additional eye complaints ENT: Reports system reviewed and no additional complaints, except as documented Cardiovascular: Cardiovascular: Reports pedal edema, Reports leg edema and Reports dyspnea Respiratory: Respiratory: Reports as per HPI and Reports dyspnea Gastrointestinal: Gastrointestinal: Reports no additional gastrointestinal complaints Musculoskeletal: Musculoskeletal: Reports no additional musculoskeletal complaints Integumentary/Breasts: Skin/Breast: Reports system reviewed and no additional complaints, except as docu Neurologic: Reports system reviewed and no additional complaints, except as documented Endocrine: Endocrine: Reports no additional endocrine complaints Hematologic/Lymphatic: Hematologic/Lymphatic: Reports no additional hematologic/lymphatic complaints Allergic/Immunologic: Allergic/Immunologic: Reports no additional allergic/immunologic complaints Exam Const: Other: Chronically ill-appearing woman appearing older than her stated age wearing nasal cannula oxygen HENMT: Face/Nose/Sinus: Normal nares present Eyes: Sclera: sclerae normal Neck: Neck: supple Resp: Effort & Inspection: normal respiratory effort Other: Prolonged expiratory phase and expiratory rhonchi noted Cardio: Rate: regular rate Rhythm: regular rhythm GI: Auscultation: normal bowel sounds Skin: General skin exam: normal color Other: Cyanotic Neuro: Other: Alert and oriented x3 Extrem: Other: No edema Psych: Appearance: grossly normal Objective Data Vital Signs Vital Signs: Vital Signs - 24 hr 08/07/25 08:40 08/07/25 08:40 08/07/25 08:49 Temperature Pulse Rate 72 73 Respiratory Rate 20 20 Blood Pressure Pulse Oximetry 95 Oxygen Delivery Nasal Cannula Oxygen Flow Rate 3 Fraction of Inspired Oxygen 32 08/07/25 10:00 08/07/25 10:14 08/07/25 12:00 Temperature Pulse Rate 78 84 67 Respiratory Rate Blood Pressure Pulse Oximetry Oxygen Delivery Oxygen Flow Rate Fraction of Inspired Oxygen 08/07/25 13:45 08/07/25 13:53 08/07/25 16:00 Temperature Pulse Rate 75 73 73 Respiratory Rate 20 20 Blood Pressure Pulse Oximetry Oxygen Delivery Oxygen Flow Rate Fraction of Inspired Oxygen 08/07/25 16:00 08/07/25 20:00 08/07/25 20:00 Temperature 36.3 C L Pulse Rate 64 63 71 Respiratory Rate 18 Blood Pressure 163/81 H Pulse Oximetry 91 90 Oxygen Delivery Nasal Cannula Oxygen Flow Rate 3 Fraction of Inspired Oxygen 08/07/25 20:09 08/07/25 20:19 08/07/25 20:50 Temperature 36.8 C Pulse Rate 74 73 150 H Respiratory Rate 18 18 20 Blood Pressure 117/99 H Pulse Oximetry 88 L Oxygen Delivery Oxygen Flow Rate Fraction of Inspired Oxygen 08/08/25 00:00 08/08/25 01:00 08/08/25 02:05 Temperature Pulse Rate 62 66 77 Respiratory Rate 27 H 21 H Blood Pressure Pulse Oximetry 92 Oxygen Delivery BiPAP Oxygen Flow Rate Fraction of Inspired Oxygen 08/08/25 02:06 08/08/25 02:14 08/08/25 04:00 Temperature Pulse Rate 67 78 54 L Respiratory Rate 21 H 20 Blood Pressure Pulse Oximetry 92 Oxygen Delivery BiPAP Oxygen Flow Rate Fraction of Inspired Oxygen 08/08/25 05:33 08/08/25 05:47 08/08/25 07:23 Temperature Pulse Rate 51 L 63 Respiratory Rate 20 Blood Pressure 154/65 H Pulse Oximetry 92 81 L Oxygen Delivery Nasal Cannula Oxygen Flow Rate 4 Fraction of Inspired Oxygen 08/08/25 07:26 08/08/25 07:28 08/08/25 07:40 Temperature Pulse Rate 63 74 Respiratory Rate 24 H 24 H Blood Pressure Pulse Oximetry 89 L Oxygen Delivery Nasal Cannula Oxygen Flow Rate 5 Fraction of Inspired Oxygen Intake/Output Intake/Output: Intake & Output 08/05/25 08/06/25 08/07/25 08/08/25 23:59 23:59 23:59 23:59 Intake Total 50 855 840 400 Output Total 2400 750 800 Balance 50 -1545 90 -400 Meds/Results Medications: Active Medications Generic Name Dose Route Start Last Admin Trade Name Freq PRN Reason Stop Dose Admin Acetaminophen 650 mg 08/05/25 18:40 Acetaminophen 325 Mg Tablet PO Q4H PRN Mild Pain (1-3) or Fever Hydrocodone Bitart/Acetaminophen 1 tab 08/05/25 18:40 Hydrocodone/Acetaminophen (*Crx) 5-325 Mg Tablet PO Q4H PRN Moderate Pain (4-6) Acetylcysteine 200 mg 08/06/25 08:00 08/08/25 07:19 Acetylcysteine 20% Inhal Soln 800 Mg/4 Ml Vial INHALATION 200 mg Q6HRT VEE Administration Al Hydrox/Mg Hydrox/Simethicone 30 ml 08/05/25 18:40 Mag Hydrox/Al Hydrox/Simeth 30 Ml Udc PO QID PRN Dyspepsia Albuterol/Ipratropium 3 ml 08/05/25 20:00 08/08/25 07:18 Ipratropium 0.5 Mg/Albuterol Sulfate 2.5 Mg (Base) Ampul.Neb 3 Ml INHALATION 3 ml Q6HRT VEE Administration Benzonatate 100 mg 08/05/25 18:53 Benzonatate 100 Mg Capsule PO TID PRN Cough Bisacodyl 5 mg 08/05/25 18:40 Bisacodyl 5 Mg Tablet Ec PO DAILY PRN Constipation Clopidogrel Bisulfate 75 mg 08/06/25 09:00 08/07/25 10:14 Clopidogrel Bisulfate 75 Mg Tablet PO 75 mg DAILY VEE Administration Cyanocobalamin 1,000 mcg 08/06/25 09:00 08/07/25 10:14 Cyanocobalamin 1,000 Mcg Tablet PO 1,000 mcg DAILY VEE Administration Dextrose 12.5 gm 08/06/25 09:36 Dextrose 50% 25 Gm/50 Ml Syringe IV PUSH PRN PRN Hypoglycemia Protocol Digoxin 125 mcg 08/06/25 09:00 08/07/25 10:14 Digoxin Tab 125 Mcg Tablet PO 125 mcg DAILY VEE Administration Enoxaparin Sodium 30 mg 08/06/25 09:00 08/07/25 10:15 Enoxaparin 30 Mg/0.3 Ml Syringe SUB-Q 30 mg DAILY VEE Administration Furosemide 40 mg 08/08/25 09:00 Furosemide 40 Mg Tablet PO DAILY VEE Gabapentin 300 mg 08/05/25 21:00 08/07/25 21:22 Gabapentin 300 Mg Capsule PO 300 mg QID VEE Administration Glucose 15 gm 08/06/25 09:36 Glucose Oral Gel 15 Gm Of Glucse In 37.5 Gm Tube PO PRN PRN Hypoglycemia Protocol Guaifenesin 600 mg 08/05/25 21:00 08/07/25 21:22 Guaifenesin 12 Hr 600 Mg Tabcr PO 600 mg Q12HR VEE Administration Dextrose 1,000 mls @ 100 mls/hr 08/06/25 09:36 Dextrose 5% 1,000 Ml IVPB PRN PRN Hypoglycemia Protocol Piperacillin Sod/Tazobactam 50 mls @ 100 mls/hr 08/07/25 18:00 08/08/25 05:49 Sod 3.375 gm/ Sodium Chloride IVPB 100 mls/hr Q6H VEE Administration Insulin Aspart 2 - 5 units 08/06/25 12:00 08/08/25 08:06 Insulin Aspart (*Bkc) 100 Units/Ml SUB-Q Not Given TIDWM [facility] Protocol Insulin Glargine 18 units 08/07/25 21:00 08/07/25 21:34 Insulin Glargine (*Bkc) 100 Units/Ml SUB-Q 18 units HS VEE Administration Lisinopril 5 mg 08/06/25 09:00 08/07/25 10:14 Lisinopril 5 Mg Tablet PO 5 mg DAILY VEE Administration Lovastatin 40 mg 08/06/25 09:00 08/07/25 10:14 Lovastatin 20 Mg Tablet PO 40 mg DAILY VEE Administration Methylprednisolone Sodium Succinate 60 mg 08/06/25 06:10 08/08/25 05:49 Methylprednisolone Sod Succ 125 Mg Vial IV PUSH 60 mg Q6HR VEE Administration Montelukast Sodium 10 mg 08/05/25 21:00 08/07/25 21:22 Montelukast Sodium 10 Mg Tablet PO 10 mg HS VEE Administration Non-Formulary (Mini 1 each 08/07/25 09:00 08/07/25 10:21 Thin Capsule) PO 09/06/25 08:59 1 each QAM VEE Administration Ondansetron HCl 4 mg 08/05/25 18:40 Ondansetron Inj 4 Mg/2 Ml Vial IV PUSH Q6H PRN Nausea And Vomiting Fluticasone/Salmeterol 2 puff 08/05/25 20:00 08/08/25 07:19 Fluticasone/Salmeterol 230-21 Mcg Inhaler 1 Puff INHALATION 2 puff Q12HRT VEE Administration Radiology Results: ITS Impressions Chest X-Ray 08/06/25 08:27 IMPRESSION: 1. Mild worsening interstitial pulmonary edema and/or pneumonitis. 2. Right basilar aspiration pneumonia poorly seen on chest x-ray as compared to CT, as is right middle lobe atelectasis. Labs Labs: Laboratory Results - last 24 hr 08/07/25 08/07/25 08/07/25 11:18 16:49 21:26 WBC RBC Hgb Hct MCV MCH MCHC RDW Plt Count MPV Sodium Potassium Chloride Carbon Dioxide Anion Gap BUN Creatinine Estim Creat Clear Calc Estimated GFR Glucose POC Capillary Glucose 401 H 360 H 151 H Calcium Phosphorus Magnesium 08/07/25 08/08/25 08/08/25 21:33 04:46 07:56 WBC 10.4 H RBC 5.54 H Hgb 15.6 H Hct 52.0 H MCV 93.9 MCH 28.2 MCHC 30.0 L RDW 16.3 H Plt Count 175 MPV 10.9 H Sodium 138 142 Potassium 3.3 L 4.0 Chloride 95 L 96 L Carbon Dioxide 38 H > 40 H Anion Gap 5 BUN 54 H 53 H Creatinine 1.61 H 1.59 H Estim Creat Clear Calc 26 26 Estimated GFR 32 L 33 L Glucose 111 H 139 H POC Capillary Glucose 185 H Calcium 8.5 8.6 Phosphorus 3.5 Magnesium 1.9 Quality VTE Prophylaxis VTE prophylaxis: pharmacologic ordered
[2025-08-08] MEDS: GABAPENTIN 300 MG CAPSULE PO ×4 (09:07→20:53)
[2025-08-08] MEDS: ENOXAPARIN 30 MG/0.3 ML SYRINGE SUB-Q (09:07)
[2025-08-08] MEDS: CLOPIDOGREL BISULFATE 75 MG TABLET PO (09:07)
[2025-08-08] MEDS: LOVASTATIN 20 MG TABLET 40 MG PO (09:07)
[2025-08-08] MEDS: guaiFENesin 12 HR 600 MG TABCR PO ×2 (09:07→20:53)
[2025-08-08] MEDS: FUROSEMIDE 40 MG TABLET PO (09:08)
[2025-08-08] MEDS: DIGOXIN TAB 125 MCG TABLET PO (09:08)
[2025-08-08] MEDS: [UNRECOGNIZED DRUG - OTHER] 1 EACH PO (09:09)
[2025-08-08] MEDS: CYANOCOBALAMIN 1,000 MCG TABLET 1000 MCG PO (09:09)
[2025-08-08] MEDS: INSULIN ASPART (*BKC) 100 UNITS/ML 8 UNITS SUB-Q (12:28)
--- NOTE | 2025-08-08 14:07 | PCDIET ---
Nursing called down asking for assistance for pt regarding carb intake and current elevated blood sugar levels. Discussed lunch tray with pt and current glucose level, also covered basics of diabetic diet. Encourage outpatient session for nutrition education and requested referral orders.
--- NOTE | 2025-08-08 15:05 | P.PNIM_ITS ---
Progress Note: A&P Assessment and Plan (1) Acute hypoxic respiratory failure: Code(s): J96.01 - Acute respiratory failure with hypoxia Status: Inactive Assessment and Plan: Acute respiratory failure likely multifactorial including possible CHF, aspiration pneumonia, obstructive bronchus causing collapse of the right middle lobe, COPD. O2 at home - 3L NC. Chest CT completed on 08/05 which showed mild right lower lobe aspiration pneumonia, right middle lobe collapse with obstructive bronchus, interstitial pulmonary edema and/or pneumonitis superimposed upon emphysema, started on BiPAP at [facility]. ABG shows hypercarbia improved with BiPAP setting changes the patient is likely near baseline Now on 5 liters oxygen, continue CPAP at night with oxygen bleed (2) Sepsis: Qualifiers: Sepsis type: sepsis due to unspecified organism Sepsis acute organ dysfunction status: with acute organ dysfunction Severe sepsis acute organ dysfunction type: acute respiratory failure Acute respiratory failure type: with hypoxia Severe sepsis shock status: without septic shock Qualified Code(s): A41.9 - Sepsis, unspecified organism; R65.20 - Severe sepsis without septic shock; J96.01 - Acute respiratory failure with hypoxia Code(s): A41.9 - Sepsis, unspecified organism Status: Acute Assessment and Plan: Patient met SIRS criteria due to tachypnea and hypoxia. Initial lactic 4.7, repeat 4.0. Imaging concerning for aspiration pneumonia., patient denies aspiration. UTI culture and sensitivity with Group B strep Blood cultures pending as of 08/07 started on Levaquin in the ED, transition to Zosyn on 08/05 (3) Aspiration pneumonia: Qualifiers: Aspiration pneumonia type: unspecified Laterality: right Lung location: lower lobe of lung Qualified Code(s): J69.0 - Pneumonitis due to inhalation of food and vomit Code(s): J69.0 - Pneumonitis due to inhalation of food and vomit Status: Inactive Assessment and Plan: CT showed mild right lower lobe aspiration pneumonia. Patient initially started on Levaquin at [place] on 08/05. Will continue as Zosyn q.6. Sputum culture pending Antibiotics as above Patient passed bedside swallow by nursing (4) Mucus plugging of bronchi: Code(s): T17.500A - Unspecified foreign body in bronchus causing asphyxiation, initial encounter Status: Acute Assessment and Plan: [facility] Mucinex brittni receiving [facility], could consider adding Mucomyst nebulizer (5) CHF (congestive heart failure): Qualifiers: Heart failure chronicity: acute Heart failure type: unspecified Qualified Code(s): I50.9 - Heart failure, unspecified Code(s): I50.9 - Heart failure, unspecified Status: Inactive Assessment and Plan: Initially given Lasix 60 mg IV at [place] [facility], continue as 40 mg b.i.d. Hold home Lasix 20 mg daily, continue digoxin and spironolactone. Cardiology consult IV Lasix b.i.d. monitor for worsening MARK BiPAP Fluid restriction Daily weights Echocardiogram EF over 70%, Small amount of tricuspid insufficiency, jet was difficult to interrogate for estimation of PA pressure which is previously known to be severely elevated. (6) Elevated troponin: Code(s): R79.89 - Other specified abnormal findings of blood chemistry Status: Inactive Assessment and Plan: Reviewed initial EKG, showed sinus bradycardia with first-degree AV block. No significant ST depressions or elevations appreciated. High suspicion for type 2 AK given the patient has been significantly hypoxic. Trend troponin till peaked continue Plavix No ACS, MARK and cor pulmonale (7) COPD (chronic obstructive pulmonary disease): Qualifiers: COPD type: unspecified COPD Qualified Code(s): J44.9 - Chronic obstructive pulmonary disease, unspecified Code(s): J44.9 - Chronic obstructive pulmonary disease, unspecified Status: Acute Assessment and Plan: COPD exacerbation DuoNeb brittni given Solu-Medrol 125 mg IV in the ED, continue as prednisone 40 mg p.o. x5 days continue montelukast (8) Acute hyperkalemia: Code(s): E87.5 - Hyperkalemia Status: Inactive Assessment and Plan: resolved K 4.0 (9) Hypertension associated with type 2 diabetes mellitus: Code(s): E11.59 - Type 2 diabetes mellitus with other circulatory complications; I10 - Essential (primary) hypertension Status: Acute Assessment and Plan: Hold lisinopril due to MARK Accu-Cheks a.cTahir HS Hypoglycemia protocol (10) Acute renal injury: Code(s): N17.9 - Acute kidney failure, unspecified Status: Acute Assessment and Plan: Unable to do IV fluids due to, CHF, respiratory distress and fluid overload Currently receiving Lasix Plan Brief Atrial Fibrillation overnight Afib w RVR, was given one dose of IV Lopressor 5mg now in NSR Cardiology reviewed and recommended Event monitor on discharge and they will follow up and decide systemic anticoagulation based on that cardiology eval noted Code Status: DNR DVT prophylaxis on Sq Lovenox Subjective Date/time seen: 08/08/25 15:05 Interval history: Comfortable at bedside Awaiting SNF placement Review of Systems Review of Systems: All systems reviewed & are unremarkable except as noted in HPI and below Exam Narrative: General: Chronically ill-appearing no acute distress. HEENT: normocephalic, atraumatic. Mucous membranes moist. PERRLA, bilateral sclera anicteric, no conjunctival injection. Neck supple without JVD, lymphadenopathy, or bruit. Respiratory: Coarse BS with rhonchi Cardiovascular: Regular rate and rhythm, normal S1-S2. No murmurs, rubs, or clicks. . Abdomen: Soft, round, no pulsatile masses, nondistended and nontender. No rebound, no guarding. No CVA tenderness, no hepatosplenomegaly. Bowel sounds present to all four quadrants. Extremities: No edema present. Neuro: Cranial nerves 2-12 intact without focal deficit. Skin: Warm, dry, and intact, without rash, erythema, or lesion. Psych: Alert and orientated x 4. PERRLA. pleasant, cooperative, normal speech, normal affect Const: General: comfortable and no acute distress Other: , female, ill-appearing but nontoxic appearance HENMT: Face/Nose/Sinus: Normal nares present Mouth: Yes dry mucous membranes (On BiPAP) Eyes: General: appearance normal, both eyes and all related structures Sclera: sclerae normal Pupils: Equal, round and reactive pupils present EOM: EOMs intact bilaterally Resp: Other: Modest tachypnea. Coarse lung sounds bilaterally but diminished in bases with faint crackles appreciated. No wheezing. Tolerating BiPAP well. Cardio: Rate: regular rate Rhythm: regular rhythm Other: +/-murmur GI: Other: Abdomen soft, nondistended, nontender. Normoactive bowel sounds in all quadrants. Skin: General skin exam: normal color and no rashes or lesions noted Wounds: no wounds Neuro: Cranial nerves: Yes Equal, round and reactive pupils present Speech: normal speech Motor exam (neuro): 5/5 motor strength present throughout Sensory Exam: normal sensation Extrem: Other: 2+ pitting edema to bilateral lower extr emities from just distal to her bilat eral knees to her feet. +1 nonpitting edema to her bilateral thighs. Psych: Mental Status: mental status grossly normal Affect: normal affect Other: Good insight and judgment, pleasant Objective Data Vital Signs Vital Signs: Vital Signs - 24 hr 08/07/25 16:00 08/07/25 16:00 08/07/25 20:00 Temperature 97.3 F L Pulse Rate 73 64 63 Respiratory Rate 18 Blood Pressure 163/81 H Pulse Oximetry 91 90 Oxygen Delivery Nasal Cannula Oxygen Flow Rate 3 08/07/25 20:00 08/07/25 20:09 08/07/25 20:19 Temperature Pulse Rate 71 74 73 Respiratory Rate 18 18 Blood Pressure Pulse Oximetry Oxygen Delivery Oxygen Flow Rate 08/07/25 20:50 08/08/25 00:00 08/08/25 01:00 Temperature 98.2 F Pulse Rate 150 H 62 66 Respiratory Rate 20 27 H Blood Pressure 117/99 H Pulse Oximetry 88 L 92 Oxygen Delivery BiPAP Oxygen Flow Rate 08/08/25 02:05 08/08/25 02:06 08/08/25 02:14 Temperature Pulse Rate 77 67 78 Respiratory Rate 21 H 21 H 20 Blood Pressure Pulse Oximetry 92 Oxygen Delivery BiPAP Oxygen Flow Rate 08/08/25 04:00 08/08/25 05:33 08/08/25 05:47 Temperature Pulse Rate 54 L 51 L 63 Respiratory Rate 20 Blood Pressure 154/65 H Pulse Oximetry 92 Oxygen Delivery Oxygen Flow Rate 08/08/25 07:23 08/08/25 07:26 08/08/25 07:28 Temperature Pulse Rate 63 Respiratory Rate 24 H Blood Pressure Pulse Oximetry 81 L 89 L Oxygen Delivery Nasal Cannula Nasal Cannula Oxygen Flow Rate 4 5 08/08/25 07:40 08/08/25 09:08 08/08/25 09:10 Temperature Pulse Rate 74 76 Respiratory Rate 24 H Blood Pressure Pulse Oximetry 95 Oxygen Delivery Nasal Cannula Oxygen Flow Rate 3 08/08/25 09:10 08/08/25 11:54 08/08/25 12:00 Temperature Pulse Rate 60 85 Respiratory Rate Blood Pressure Pulse Oximetry Oxygen Delivery Nasal Cannula Oxygen Flow Rate 5 08/08/25 13:05 08/08/25 13:17 Temperature Pulse Rate 69 66 Respiratory Rate 24 H 24 H Blood Pressure Pulse Oximetry Oxygen Delivery Oxygen Flow Rate Intake/Output Intake/Output: Intake & Output 08/05/25 08/06/25 08/07/25 08/08/25 23:59 23:59 23:59 23:59 Intake Total 50 855 840 930 Output Total 2400 750 800 Balance 50 -1545 90 130 Meds/Results Medications: Active Medications Generic Name Dose Route Start Last Admin Trade Name Freq PRN Reason Stop Dose Admin Acetaminophen 650 mg 08/05/25 18:40 Acetaminophen 325 Mg Tablet PO Q4H PRN Mild Pain (1-3) or Fever Hydrocodone Bitart/Acetaminophen 1 tab 08/05/25 18:40 Hydrocodone/Acetaminophen (*Crx) 5-325 Mg Tablet PO Q4H PRN Moderate Pain (4-6) Acetylcysteine 200 mg 08/06/25 08:00 08/08/25 13:00 Acetylcysteine 20% Inhal Soln 800 Mg/4 Ml Vial INHALATION 200 mg Q6HRT BRITTNI Administration Al Hydrox/Mg Hydrox/Simethicone 30 ml 08/05/25 18:40 Mag Hydrox/Al Hydrox/Simeth 30 Ml Udc PO QID PRN Dyspepsia Albuterol/Ipratropium 3 ml 08/05/25 20:00 08/08/25 13:00 Ipratropium 0.5 Mg/Albuterol Sulfate 2.5 Mg (Base) Ampul.Neb 3 Ml INHALATION 3 ml Q6HRT BRITTNI Administration Benzonatate 100 mg 08/05/25 18:53 Benzonatate 100 Mg Capsule PO TID PRN Cough Bisacodyl 5 mg 08/05/25 18:40 Bisacodyl 5 Mg Tablet Ec PO DAILY PRN Constipation Clopidogrel Bisulfate 75 mg 08/06/25 09:00 08/08/25 09:07 Clopidogrel Bisulfate 75 Mg Tablet PO 75 mg DAILY BRITTNI Administration Cyanocobalamin 1,000 mcg 08/06/25 09:00 08/08/25 09:09 Cyanocobalamin 1,000 Mcg Tablet PO 1,000 mcg DAILY BRITTNI Administration Dextrose 12.5 gm 08/06/25 09:36 Dextrose 50% 25 Gm/50 Ml Syringe IV PUSH PRN PRN Hypoglycemia Protocol Digoxin 125 mcg 08/06/25 09:00 08/08/25 09:08 Digoxin Tab 125 Mcg Tablet PO 125 mcg DAILY BRITTNI Administration Enoxaparin Sodium 30 mg 08/06/25 09:00 08/08/25 09:07 Enoxaparin 30 Mg/0.3 Ml Syringe SUB-Q 30 mg DAILY BRITTNI Administration Furosemide 40 mg 08/08/25 09:00 08/08/25 09:08 Furosemide 40 Mg Tablet PO 40 mg DAILY BRITTNI Administration Gabapentin 300 mg 08/05/25 21:00 08/08/25 12:26 Gabapentin 300 Mg Capsule PO 300 mg QID BRITTNI Administration Glucose 15 gm 08/06/25 09:36 Glucose Oral Gel 15 Gm Of Glucse In 37.5 Gm Tube PO PRN PRN Hypoglycemia Protocol Guaifenesin 600 mg 08/05/25 21:00 08/08/25 09:07 Guaifenesin 12 Hr 600 Mg Tabcr PO 600 mg Q12HR BRITTNI Administration Dextrose 1,000 mls @ 100 mls/hr 08/06/25 09:36 Dextrose 5% 1,000 Ml IVPB PRN PRN Hypoglycemia Protocol Piperacillin Sod/Tazobactam 50 mls @ 100 mls/hr 08/07/25 18:00 08/08/25 12:25 Sod 3.375 gm/ Sodium Chloride IVPB 100 mls/hr Q6H BRITTNI Administration Insulin Aspart 2 - 5 units 08/06/25 12:00 08/08/25 12:26 Insulin Aspart (*Bkc) 100 Units/Ml SUB-Q Not Given TIDWM BRITTNI Protocol Insulin Glargine 18 units 08/07/25 21:00 08/07/25 21:34 Insulin Glargine (*Bkc) 100 Units/Ml SUB-Q 18 units HS BRITTNI Administration Lisinopril 5 mg 08/06/25 09:00 08/08/25 09:08 Lisinopril 5 Mg Tablet PO 5 mg DAILY BRITTNI Administration Lovastatin 40 mg 08/06/25 09:00 08/08/25 09:07 Lovastatin 20 Mg Tablet PO 40 mg DAILY BRITTNI Administration Methylprednisolone Sodium Succinate 60 mg 08/06/25 06:10 08/08/25 12:24 Methylprednisolone Sod Succ 125 Mg Vial IV PUSH 60 mg Q6HR BRITTNI Administration Montelukast Sodium 10 mg 08/05/25 21:00 08/07/25 21:22 Montelukast Sodium 10 Mg Tablet PO 10 mg HS BRITTNI Administration Non-Formulary (Mini 1 each 08/07/25 09:00 08/08/25 09:09 Thin 25/50 Capsule) PO 09/06/25 08:59 1 each QAM BRITTNI Administration Ondansetron HCl 4 mg 08/05/25 18:40 Ondansetron Inj 4 Mg/2 Ml Vial IV PUSH Q6H PRN Nausea And Vomiting Fluticasone/Salmeterol 2 puff 08/05/25 20:00 08/08/25 07:19 Fluticasone/Salmeterol 230-21 Mcg Inhaler 1 Puff INHALATION 2 puff Q12HRT BRITTNI Administration Radiology Results: ITS Impressions Chest X-Ray 08/06/25 08:27 IMPRESSION: 1. Mild worsening interstitial pulmonary edema and/or pneumonitis. 2. Right basilar aspiration pneumonia poorly seen on chest x-ray as compared to CT, as is right middle lobe atelectasis. Labs Labs: Laboratory Results - last 24 hr 08/07/25 08/07/25 08/07/25 16:49 21:26 21:33 WBC RBC Hgb Hct MCV MCH MCHC RDW Plt Count MPV Sodium 138 Potassium 3.3 L Chloride 95 L Carbon Dioxide 38 H Anion Gap 5 BUN 54 H Creatinine 1.61 H Estim Creat Clear Calc 26 Estimated GFR 32 L Glucose 111 H POC Capillary Glucose 360 H 151 H Calcium 8.5 Phosphorus 3.5 Magnesium 1.9 08/08/25 08/08/25 08/08/25 04:46 07:56 11:39 WBC 10.4 H RBC 5.54 H Hgb 15.6 H Hct 52.0 H MCV 93.9 MCH 28.2 MCHC 30.0 L RDW 16.3 H Plt Count 175 MPV 10.9 H Sodium 142 Potassium 4.0 Chloride 96 L Carbon Dioxide > 40 H Anion Gap BUN 53 H Creatinine 1.59 H Estim Creat Clear Calc 26 Estimated GFR 33 L Glucose 139 H POC Capillary Glucose 185 H 472 H Calcium 8.6 Phosphorus Magnesium 08/08/25 14:28 WBC RBC Hgb Hct MCV MCH MCHC RDW Plt Count MPV Sodium Potassium Chloride Carbon Dioxide Anion Gap BUN Creatinine Estim Creat Clear Calc Estimated GFR Glucose POC Capillary Glucose 196 H Calcium Phosphorus Magnesium Quality VTE Prophylaxis VTE prophylaxis: pharmacologic ordered
--- NOTE | 2025-08-08 15:36 | PCOTNOTE ---
Attempted to see pt for OT evaluation however pt was with respiratory care at this time. Will continue to follow for OT evaluation.
[2025-08-08] MEDS: WATER FOR IRRIGATION, STERILE 500 ML BOTTLE (17:43)
[2025-08-08] MEDS: MONTELUKAST SODIUM 10 MG TABLET PO (20:53)
[2025-08-08] MEDS: INSULIN GLARGINE (*BKC) 100 UNITS/ML 18 UNITS SUB-Q (20:55)
[2025-08-09] VITALS (26 sets, daily range): BP systolic 137–204; BP diastolic 85–115; PULSE 49–90; RESP 16–22; TEMP 36.3–36.6; O2SAT 86–96
[2025-08-09] MEDS: IPRATROPIUM 0.5 MG/ALBUTEROL SULFATE 2.5 MG (BASE) AMPUL.NEB 3 ML INHALATION ×3 (02:32→19:26)
[2025-08-09] MEDS: ACETYLCYSTEINE 20% INHAL SOLN 800 MG/4 ML VIAL 200 MG INHALATION ×3 (02:32→19:26)
[2025-08-09] MEDS: PIPERACILLIN/TAZOBACTAM SOD 3.375 GM in SODIUM CHLORIDE 0.9% IV 50 ML IVPB ×3 (04:56→17:35)
[2025-08-09 05:05] LABS: Hematocrit 54.9 % (37.0-47.0); Hemoglobin 16.6 g/dL (12.0-15.0); Immature Granulocyte Percent A 1.2 % (0-0.5); Lymphocytes Absolute Auto 0.37 K/mm3 (0.9-3.2); Mean Corpuscular HGB Conc 30.2 g/dl (32-36); Mean Corpuscular Hemoglobin 28.1 pg (26-34); Mean Corpuscular Volume 93.1 fl (80-100); Nucleated Red Blood Cells Absolute Auto 0.000 K/mm3 (0.0-0.012); Nucleated Red Blood Cells Perc 0.0 % (0.0-0.2); Platelet Count Result 150 k/mm3 (150-375); Red Blood Count 5.90 M/mm3 (4.2-5.4); White Blood Count 7.3 K/mm3 (4.5-10.0)
[2025-08-09 05:27] LABS: Alanine Aminotransferase 31 U/L (6-35); Albumin Level 3.6 g/dL (3.5-5.1); Alkaline Phosphatase 113 U/L (38-126); Aspartate Amino Transferase 33 U/L (14-36); Bilirubin,Total 1.1 mg/dL (0.2-1.3); Blood Urea Nitrogen 51 mg/dL (7-17); Calcium 9.1 mg/dL (8.4-10.2); Chloride 95 mmol/L (98-107); Estimated CRCL calculation 32 ml/min; Estimated Glomerular Filt Rate 42; Glucose 145 mg/dL (65-110); Magnesium 2.1 mg/dL (1.6-2.3); Potassium 3.4 mmol/L (3.4-5.0); Sodium 142 mmol/L (137-145); Total Protein 6.7 g/dL (6.3-8.2)
[2025-08-09 05:28] LABS: Carbon Dioxide > 40 mmol/L (22-30)
[2025-08-09] MEDS: CYANOCOBALAMIN 1,000 MCG TABLET 1000 MCG PO (08:53)
[2025-08-09] MEDS: LOVASTATIN 20 MG TABLET 40 MG PO (08:53)
[2025-08-09] MEDS: ENOXAPARIN 30 MG/0.3 ML SYRINGE SUB-Q (08:53)
[2025-08-09] MEDS: DIGOXIN TAB 125 MCG TABLET PO (08:53)
[2025-08-09] MEDS: FUROSEMIDE 40 MG TABLET PO (08:53)
[2025-08-09] MEDS: GABAPENTIN 300 MG CAPSULE PO ×4 (08:55→20:23)
[2025-08-09] MEDS: CLOPIDOGREL BISULFATE 75 MG TABLET PO (08:55)
[2025-08-09] MEDS: guaiFENesin 12 HR 600 MG TABCR PO ×2 (08:55→20:23)
[2025-08-09 09:35] LABS: Non-Invasive Inspiratory Pressure 16 CMH2O; Non-Invasive Vent Rate 18 /MIN
[2025-08-09 09:36] LABS: Non-Invasive Expiratory Pressure 8 CMH2O
--- NOTE | 2025-08-09 12:15 | PC.NURSE ---
Referral started for Initial DSMT. Copy faxed [facility] and to Dr. Brooks's office.
--- NOTE | 2025-08-09 14:32 | P.PNIM_ITS ---
Progress Note: A&P Assessment and Plan (1) Acute hypoxic respiratory failure: Code(s): J96.01 - Acute respiratory failure with hypoxia Status: Inactive Assessment and Plan: Acute respiratory failure likely multifactorial including possible CHF, aspiration pneumonia, obstructive bronchus causing collapse of the right middle lobe, COPD. O2 at home - 3L NC. Chest CT completed on 08/05 which showed mild right lower lobe aspiration pneumonia, right middle lobe collapse with obstructive bronchus, interstitial pulmonary edema and/or pneumonitis superimposed upon emphysema, started on BiPAP at [place]. ABG shows hypercarbia improved with BiPAP setting changes the patient is likely near baseline Now on 4 liters oxygen, continue CPAP at night with oxygen bleed (2) Sepsis: Qualifiers: Sepsis type: sepsis due to unspecified organism Sepsis acute organ dysfunction status: with acute organ dysfunction Severe sepsis acute organ dysfunction type: acute respiratory failure Acute respiratory failure type: with hypoxia Severe sepsis shock status: without septic shock Qualified Code(s): A41.9 - Sepsis, unspecified organism; R65.20 - Severe sepsis without septic shock; J96.01 - Acute respiratory failure with hypoxia Code(s): A41.9 - Sepsis, unspecified organism Status: Acute Assessment and Plan: Patient met SIRS criteria due to tachypnea and hypoxia. Initial lactic 4.7, repeat 4.0. Imaging concerning for aspiration pneumonia., patient denies aspiration. UTI culture and sensitivity with Group B strep Blood cultures pending as of 08/07 started on Levaquin in the ED, transition to Zosyn on 08/05 (3) Aspiration pneumonia: Qualifiers: Aspiration pneumonia type: unspecified Laterality: right Lung location: lower lobe of lung Qualified Code(s): J69.0 - Pneumonitis due to inhalation of food and vomit Code(s): J69.0 - Pneumonitis due to inhalation of food and vomit Status: Inactive Assessment and Plan: CT showed mild right lower lobe aspiration pneumonia. Patient initially started on Levaquin at [place] [facility] on 08/05. Will continue as Zosyn q.6. Sputum culture pending Antibiotics as above Patient passed bedside swallow by nursing (4) Mucus plugging of bronchi: Code(s): T17.500A - Unspecified foreign body in bronchus causing asphyxiation, initial encounter Status: Acute Assessment and Plan: [facility] Mucinex brittni receiving formerly [facility], [facility] Robert, could consider adding Mucomyst nebulizer (5) CHF (congestive heart failure): Qualifiers: Heart failure chronicity: acute Heart failure type: unspecified Qualified Code(s): I50.9 - Heart failure, unspecified Code(s): I50.9 - Heart failure, unspecified Status: Inactive Assessment and Plan: Initially given Lasix 60 mg IV at [place] [facility], continue as 40 mg b.i.d. Hold home Lasix 20 mg daily, continue digoxin and spironolactone. Cardiology consult IV Lasix b.i.d. monitor for worsening MARK BiPAP Fluid restriction Daily weights Echocardiogram EF over 70%, Small amount of tricuspid insufficiency, jet was difficult to interrogate for estimation of PA pressure which is previously known to be severely elevated. (6) Elevated troponin: Code(s): R79.89 - Other specified abnormal findings of blood chemistry Status: Inactive Assessment and Plan: Reviewed initial EKG, showed sinus bradycardia with first-degree AV block. No significant ST depressions or elevations appreciated. High suspicion for type 2 IA given the patient has been significantly hypoxic. Trend troponin till peaked continue Plavix No ACS, MARK and cor pulmonale (7) COPD (chronic obstructive pulmonary disease): Qualifiers: COPD type: unspecified COPD Qualified Code(s): J44.9 - Chronic obstructive pulmonary disease, unspecified Code(s): J44.9 - Chronic obstructive pulmonary disease, unspecified Status: Acute Assessment and Plan: COPD exacerbation [facility] discontin[facility] steroid, continue home bronchodilators continue montelukast (8) Acute hyperkalemia: Code(s): E87.5 - Hyperkalemia Status: Inactive Assessment and Plan: resolved K 4.0 (9) Hypertension associated with type 2 diabetes mellitus: Code(s): E11.59 - Type 2 diabetes mellitus with other circulatory complications; I10 - Essential (primary) hypertension Status: Acute Assessment and Plan: Hold lisinopril due to MARK Accu-Cheks a.josephine HS Hypoglycemia protocol (10) Acute renal injury: Code(s): N17.9 - Acute kidney failure, unspecified Status: Acute Assessment and Plan: Unable to do IV fluids due to, CHF, respiratory distress and fluid overload Currently receiving Lasix Cr 1.28 from 2.01 Plan Brief Atrial Fibrillation overnight Afib w RVR, was given one dose of IV Lopressor 5mg now in NSR Cardiology reviewed and recommended Event monitor on discharge and they will follow up and decide systemic anticoagulation based on that cardiology eval noted Hypertension nocturnal hypertension likely from steroid monitor one more day off steroid BP last night as high as 220/110 Code Status: DNR DVT prophylaxis on Sq Lovenox Subjective Date/time seen: 08/09/25 14:32 Interval history: Comfortable at bedside Monitor one more day, due to norctural hypertension. IV steroid stopped Review of Systems Review of Systems: All systems reviewed & are unremarkable except as noted in HPI and below Exam Narrative: General: Chronically ill-appearing no acute distress. HEENT: normocephalic, atraumatic. Mucous membranes moist. PERRLA, bilateral sclera anicteric, no conjunctival injection. Neck supple without JVD, lymphadenopathy, or bruit. Respiratory: Coarse BS with rhonchi Cardiovascular: Regular rate and rhythm, normal S1-S2. No murmurs, rubs, or clicks. . Abdomen: Soft, round, no pulsatile masses, nondistended and nontender. No rebound, no guarding. No CVA tenderness, no hepatosplenomegaly. Bowel sounds present to all four quadrants. Extremities: No edema present. Neuro: Cranial nerves 2-12 intact without focal deficit. Skin: Warm, dry, and intact, without rash, erythema, or lesion. Psych: Alert and orientated x 4. PERRLA. pleasant, cooperative, normal speech, normal affect Const: General: comfortable and no acute distress Other: , female, ill-appearing but nontoxic appearance HENMT: Face/Nose/Sinus: Normal nares present Mouth: Yes dry mucous membranes (On BiPAP) Eyes: General: appearance normal, both eyes and all related structures Sclera: sclerae normal Pupils: Equal, round and reactive pupils present EOM: EOMs intact bilaterally Resp: Other: Modest tachypnea. Coarse lung sounds bilaterally but diminished in bases with faint crackles appreciated. No wheezing. Tolerating BiPAP well. Cardio: Rate: regular rate Rhythm: regular rhythm Other: +/-murmur GI: Other: Abdomen soft, nondistended, nontender. Normoactive bowel sounds in all quadrants. Skin: General skin exam: normal color and no rashes or lesions noted Wounds: no wounds Neuro: Cranial nerves: Yes Equal, round and reactive pupils present Speech: normal speech Motor exam (neuro): 5/5 motor strength present throughout Sensory Exam: normal sensation Extrem: Other: 2+ pitting edema to bilateral lower extr emities from just distal to her bilateral knees to her feet. +1 nonpitting edema to her bilateral thighs. Psych: Mental Status: mental status grossly normal Affect: normal affect Other: Good insight and judgment, pleasant Objective Data Vital Signs Vital Signs: Vital Signs - 24 hr 08/08/25 16:00 08/08/25 17:00 08/08/25 20:00 Temperature 96.9 F L Pulse Rate 54 L 85 Respiratory Rate 18 Blood Pressure 197/91 H Pulse Oximetry 93 90 Oxygen Delivery Nasal Cannula Oxygen Flow Rate 3 08/08/25 20:00 08/08/25 20:15 08/08/25 20:26 Temperature Pulse Rate 53 L 74 Respiratory Rate 22 H Blood Pressure Pulse Oximetry 91 Oxygen Delivery Nasal Cannula Oxygen Flow Rate 4 08/08/25 20:30 08/08/25 20:54 08/08/25 21:45 Temperature 97.2 F L Pulse Rate 78 71 77 Respiratory Rate 22 H 18 Blood Pressure Pulse Oximetry 92 94 Oxygen Delivery Autopap Oxygen Flow Rate 08/08/25 23:05 08/09/25 00:00 08/09/25 00:00 Temperature Pulse Rate 68 Respiratory Rate Blood Pressure 220/110 H 159/85 H Pulse Oximetry Oxygen Delivery Oxygen Flow Rate 08/09/25 02:32 08/09/25 02:35 08/09/25 02:41 Temperature Pulse Rate 77 72 68 Respiratory Rate 22 H 20 Blood Pressure Pulse Oximetry 94 Oxygen Delivery Autopap Oxygen Flow Rate 08/09/25 04:00 08/09/25 05:04 08/09/25 07:55 Temperature 97.8 F Pulse Rate 56 L 60 50 L Respiratory Rate 20 18 Blood Pressure 175/91 H 137/92 H Pulse Oximetry 90 86 L Oxygen Delivery Oxygen Flow Rate 08/09/25 08:10 08/09/25 08:40 08/09/25 08:53 Temperature Pulse Rate 85 Respiratory Rate Blood Pressure Pulse Oximetry 89 L 90 Oxygen Delivery Nasal Cannula Oxygen Flow Rate 4 08/09/25 13:37 Temperature Pulse Rate Respiratory Rate Blood Pressure Pulse Oximetry Oxygen Delivery High Flow Nasal Cannula Oxygen Flow Rate 4 Intake/Output Intake/Output: Intake & Output 08/06/25 08/07/25 08/08/25 08/09/25 23:59 23:59 23:59 23:59 Intake Total 544 842 2503 830 Output Total 2400 750 1400 650 Balance -1545 90 -130 180 Meds/Results Medications: Active Medications Generic Name Dose Route Start Last Admin Trade Name Freq PRN Reason Stop Dose Admin Acetaminophen 650 mg 08/05/25 18:40 Acetaminophen 325 Mg Tablet PO Q4H PRN Mild Pain (1-3) or Fever Hydrocodone Bitart/Acetaminophen 1 tab 08/05/25 18:40 Hydrocodone/Acetaminophen (*Crx) 5-325 Mg Tablet PO Q4H PRN Moderate Pain (4-6) Acetylcysteine 200 mg 08/06/25 08:00 08/09/25 08:43 Acetylcysteine 20% Inhal Soln 800 Mg/4 Ml Vial INHALATION Not Given Q6HRT BRITTNI Al Hydrox/Mg Hydrox/Simethicone 30 ml 08/05/25 18:40 Mag Hydrox/Al Hydrox/Simeth 30 Ml Udc PO QID PRN Dyspepsia Albuterol/Ipratropium 3 ml 08/05/25 20:00 08/09/25 08:44 Ipratropium 0.5 Mg/Albuterol Sulfate 2.5 Mg (Base) Ampul.Neb 3 Ml INHALATION Not Given Q6HRT BRITTNI Benzonatate 100 mg 08/05/25 18:53 Benzonatate 100 Mg Capsule PO TID PRN Cough Bisacodyl 5 mg 08/05/25 18:40 Bisacodyl 5 Mg Tablet Ec PO DAILY PRN Constipation Clopidogrel Bisulfate 75 mg 08/06/25 09:00 08/09/25 08:55 Clopidogrel Bisulfate 75 Mg Tablet PO 75 mg DAILY BRITTNI Administration Cyanocobalamin 1,000 mcg 08/06/25 09:00 08/09/25 08:53 Cyanocobalamin 1,000 Mcg Tablet PO 1,000 mcg DAILY BRITTNI Administration Dextrose 12.5 gm 08/06/25 09:36 Dextrose 50% 25 Gm/50 Ml Syringe IV PUSH PRN PRN Hypoglycemia Protocol Digoxin 125 mcg 08/06/25 09:00 08/09/25 08:53 Digoxin Tab 125 Mcg Tablet PO 125 mcg DAILY BRITTNI Administration Enoxaparin Sodium 30 mg 08/06/25 09:00 08/09/25 08:53 Enoxaparin 30 Mg/0.3 Ml Syringe SUB-Q 30 mg DAILY BRITTNI Administration Furosemide 40 mg 08/08/25 09:00 08/09/25 08:53 Furosemide 40 Mg Tablet PO 40 mg DAILY BRITTNI Administration Gabapentin 300 mg 08/05/25 21:00 08/09/25 12:37 Gabapentin 300 Mg Capsule PO 300 mg QID BRITTNI Administration Glucose 15 gm 08/06/25 09:36 Glucose Oral Gel 15 Gm Of Glucse In 37.5 Gm Tube PO PRN PRN Hypoglycemia Protocol Guaifenesin 600 mg 08/05/25 21:00 08/09/25 08:55 Guaifenesin 12 Hr 600 Mg Tabcr PO 600 mg Q12HR BRITTNI Administration Dextrose 1,000 mls @ 100 mls/hr 08/06/25 09:36 Dextrose 5% 1,000 Ml IVPB PRN PRN Hypoglycemia Protocol Piperacillin Sod/Tazobactam 50 mls @ 100 mls/hr 08/07/25 18:00 08/09/25 12:37 Sod 3.375 gm/ Sodium Chloride IVPB 100 mls/hr Q6H BRITTNI Administration Insulin Aspart 2 - 5 units 08/06/25 12:00 08/09/25 12:11 Insulin Aspart (*Bkc) 100 Units/Ml SUB-Q Not Given TIDWM [facility] Protocol Insulin Glargine 18 units 08/07/25 21:00 08/08/25 20:55 Insulin Glargine (*Bkc) 100 Units/Ml SUB-Q 18 units HS BRITTNI Administration Lisinopril 5 mg 08/06/25 09:00 08/09/25 08:53 Lisinopril 5 Mg Tablet PO 5 mg DAILY BRITTNI Administration Lovastatin 40 mg 08/06/25 09:00 08/09/25 08:53 Lovastatin 20 Mg Tablet PO 40 mg DAILY BRITTNI Administration Montelukast Sodium 10 mg 08/05/25 21:00 08/08/25 20:53 Montelukast Sodium 10 Mg Tablet PO 10 mg HS BRITTNI Administration Non-Formulary (Mini 1 each 08/07/25 09:00 08/09/25 08:56 Thin 25/50 Capsule) PO 09/06/25 08:59 Not Given QAM [facility] Ondansetron HCl 4 mg 08/05/25 18:40 Ondansetron Inj 4 Mg/2 Ml Vial IV PUSH Q6H PRN Nausea And Vomiting Fluticasone/Salmeterol 2 puff 08/05/25 20:00 08/09/25 08:44 Fluticasone/Salmeterol 230-21 Mcg Inhaler 1 Puff INHALATION Not Given Q12HRT [facility] Radiology Results: ITS Impressions Chest X-Ray 08/06/25 08:27 IMPRESSION: 1. Mild worsening interstitial pulmonary edema and/or pneumonitis. 2. Right basilar aspiration pneumonia poorly seen on chest x-ray as compared to CT, as is right middle lobe atelectasis. Labs Labs: Laboratory Results - last 24 hr 08/06/25 08/08/25 08/08/25 08:24 17:07 20:53 WBC RBC Hgb Hct MCV MCH MCHC RDW Plt Count MPV Immature Gran % (Auto) Neut % (Auto) Lymph % (Auto) Stevens % (Auto) Eos % (Auto) Baso % (Auto) Lymph # (Auto) Stevens # (Auto) Eos # (Auto) Baso # (Auto) Abs Immat Gran (auto) Absolute Neuts (auto) Absolute Nucleated RBC Nucleated RBC % Vent Rate 18 Expiratory Pressure 8 Inspiratory Pressure 16 Sodium Potassium Chloride Carbon Dioxide Anion Gap BUN Creatinine Estim Creat Clear Calc Estimated GFR Glucose POC Capillary Glucose 110 H 207 H Lactic Acid Calcium Magnesium Total Bilirubin AST ALT Alkaline Phosphatase Total Protein Albumin 08/09/25 08/09/25 08/09/25 04:48 07:37 11:33 WBC 7.3 RBC 5.90 H Hgb 16.6 H Hct 54.9 H MCV 93.1 MCH 28.1 MCHC 30.2 L RDW 16.5 H Plt Count 150 MPV 11.1 H Immature Gran % (Auto) 1.2 H Neut % (Auto) 92.4 H Lymph % (Auto) 5.0 L Stevens % (Auto) 1.4 L Eos % (Auto) 0.0 Baso % (Auto) 0.0 L Lymph # (Auto) 0.37 L Stevens # (Auto) 0.1 Eos # (Auto) 0.0 Baso # (Auto) 0.0 Abs Immat Gran (auto) 0.09 H Absolute Neuts (auto) 6.8 H Absolute Nucleated RBC 0.000 Nucleated RBC % 0.0 Vent Rate Expiratory Pressure Inspiratory Pressure Sodium 142 Potassium 3.4 Chloride 95 L Carbon Dioxide > 40 H Anion Gap BUN 51 H Creatinine 1.28 H Estim Creat Clear Calc 32 Estimated GFR 42 L Glucose 145 H POC Capillary Glucose 159 H 175 H Lactic Acid 1.3 Calcium 9.1 Magnesium 2.1 Total Bilirubin 1.1 AST 33 ALT 31 Alkaline Phosphatase 113 Total Protein 6.7 Albumin 3.6 Quality VTE Prophylaxis VTE prophylaxis: pharmacologic ordered
[2025-08-09] MEDS: METOPROLOL TARTRATE INJ 5 MG/5 ML VIAL IV PUSH (18:54)
[2025-08-09] MEDS: FLUTICASONE/SALMETEROL 230-21 MCG INHALER 1 PUFF 2 PUFF INHALATION (19:27)
[2025-08-09] MEDS: MONTELUKAST SODIUM 10 MG TABLET PO (20:23)
[2025-08-09] MEDS: INSULIN GLARGINE (*BKC) 100 UNITS/ML 18 UNITS SUB-Q (21:27)
[2025-08-10] VITALS (20 sets, daily range): BP systolic 124; BP diastolic 86; PULSE 50–77; RESP 16–20; TEMP 36.4; O2SAT 85–94
[2025-08-10] MEDS: PIPERACILLIN/TAZOBACTAM SOD 3.375 GM in SODIUM CHLORIDE 0.9% IV 50 ML IVPB ×2 (00:49→05:26)
[2025-08-10] MEDS: IPRATROPIUM 0.5 MG/ALBUTEROL SULFATE 2.5 MG (BASE) AMPUL.NEB 3 ML INHALATION ×3 (01:20→13:11)
[2025-08-10] MEDS: ACETYLCYSTEINE 20% INHAL SOLN 800 MG/4 ML VIAL 200 MG INHALATION ×3 (01:20→13:12)
[2025-08-10 05:18] LABS: Hematocrit 53.5 % (37.0-47.0); Hemoglobin 16.1 g/dL (12.0-15.0); Immature Granulocyte Percent A 0.6 % (0-0.5); Immature Platelet Fraction Pct 5.4 % (0.9-11.2); Lymphocytes Absolute Auto 0.54 K/mm3 (0.9-3.2); Mean Corpuscular HGB Conc 30.1 g/dl (32-36); Mean Corpuscular Hemoglobin 27.9 pg (26-34); Mean Corpuscular Volume 92.7 fl (80-100); Nucleated Red Blood Cells Absolute Auto 0.000 K/mm3 (0.0-0.012); Nucleated Red Blood Cells Perc 0.0 % (0.0-0.2); Platelet Count Result 137 k/mm3 (150-375); Red Blood Count 5.77 M/mm3 (4.2-5.4); White Blood Count 8.6 K/mm3 (4.5-10.0)
[2025-08-10 05:33] LABS: Alanine Aminotransferase 29 U/L (6-35); Albumin Level 3.4 g/dL (3.5-5.1); Alkaline Phosphatase 83 U/L (38-126); Aspartate Amino Transferase 25 U/L (14-36); Bilirubin,Total 1.2 mg/dL (0.2-1.3); Blood Urea Nitrogen 53 mg/dL (7-17); Calcium 8.9 mg/dL (8.4-10.2); Carbon Dioxide > 40 mmol/L (22-30); Chloride 95 mmol/L (98-107); Estimated CRCL calculation 33 ml/min; Estimated Glomerular Filt Rate 43; Glucose 93 mg/dL (65-110); Magnesium 1.9 mg/dL (1.6-2.3); Potassium 3.2 mmol/L (3.4-5.0); Sodium 139 mmol/L (137-145); Total Protein 6.2 g/dL (6.3-8.2)
[2025-08-10] MEDS: FLUTICASONE/SALMETEROL 230-21 MCG INHALER 1 PUFF 2 PUFF INHALATION (07:38)
[2025-08-10] MEDS: CYANOCOBALAMIN 1,000 MCG TABLET 1000 MCG PO (09:00)
[2025-08-10] MEDS: DIGOXIN TAB 125 MCG TABLET PO (09:00)
[2025-08-10] MEDS: CLOPIDOGREL BISULFATE 75 MG TABLET PO (09:00)
[2025-08-10] MEDS: GABAPENTIN 300 MG CAPSULE PO ×2 (09:02→12:31)
[2025-08-10] MEDS: LOVASTATIN 20 MG TABLET 40 MG PO (09:03)
[2025-08-10] MEDS: ENOXAPARIN 30 MG/0.3 ML SYRINGE SUB-Q (09:03)
[2025-08-10] MEDS: guaiFENesin 12 HR 600 MG TABCR PO (09:03)
--- NOTE | 2025-08-10 11:37 | P.DS_ITS ---
DS: Admitting Diagnosis Discharge Date 08/10/25 Admitting Diagnosis Shortness of Breath DS: Discharge Diagnosis Discharge Diagnosis (1) Aspiration pneumonia: Qualifiers: Aspiration pneumonia type: unspecified Laterality: right Lung location: lower lobe of lung Qualified Code(s): J69.0 - Pneumonitis due to inhalation of food and vomit Code(s): J69.0 - Pneumonitis due to inhalation of food and vomit Status: Inactive DS: Summary Hospital Course Hospital Course: Reason for Admission Acute on chronic hypoxic respiratory failure in the setting of severe COPD, cor pulmonale, pulmonary hypertension, and right heart failure, with superimposed sepsis (aspiration pneumonia and UTI), acute kidney injury, and lower extremity edema. History of Present Illness The patient is a 60-year-old female with a history of severe COPD (on home O2), chronic respiratory failure, pulmonary hypertension, cor pulmonale, CKD stage 3a, hypertension, type 2 diabetes, and tobacco use. She presented with 3 weeks of worsening dyspnea and lower extremity edema, acutely worse over 3 days. She denied fever, chills, chest pain, or increased sputum production. On arrival, she was hypoxic (80% on 3L NC), tachypneic, and hypertensive. She was started on BiPAP and admitted for further management. Hospital Course Acute on chronic Respiratory Failure / COPD Exacerbation * Multifactorial: COPD exacerbation, aspiration pneumonia, mucus plugging, right heart failure. * Required BiPAP, then transitioned to 3L NC which is baseline and CPAP at night. * Treated with IV steroids (Solu-Medrol), then PO prednisone, scheduled nebulizers, aggressive airway clearance (CPT, vest, Mucinex, Mucomyst). * ABGs improved with therapy; patient returned to baseline oxygen requirements. Sepsis (Aspiration Pneumonia and UTI) * Met SIRS criteria (tachypnea, hypoxia, lactic acidosis). * Imaging: CT chest showed mild RLL aspiration pneumonia, RML collapse with mucus plugging, interstitial pulmonary edema, severe emphysema. * Treated with Levaquin, then transitioned to Zosyn.discharge on 4 more days of Augmentin * Blood and urine cultures obtained; urine grew Group B strep. * Fluid resuscitation limited due to heart failure. Right Heart Failure / Cor Pulmonale * Echo: Severe RV dilation and dysfunction, severe RA enlargement, small hyperdynamic LV, moderate pulmonic regurgitation, mild tricuspid regurgitation, septal flattening (RV pressure overload). * BNP markedly elevated (27,500). * Managed with IV furosemide (then transitioned to PO), fluid restriction, daily weights, lower extremity elevation. * Spironolactone discontinued due to hyperkalemia. * Cardiology: No evidence of acute left-sided heart failure or ACS; findings attributed to chronic cor pulmonale. Acute Kidney Injury on CKD * Likely cardiorenal syndrome (volume overload, CHF), possible sepsis contr ibution. * Creatinine peaked at 2.01 (baseline ?1.0), improved to 1.25 with diuresis. * Spironolactone held, Lisinopril restarted Paroxysmal Atrial Fibrillation (new) * One episode of Afib with RVR, asymptomatic, spontaneously converted to NSR after IV metoprolol. * Telemetry monitoring during admission; outpatient event monitor per cardiology Acute Hyperkalemia * K 5.6 on admission, treated with insulin/dextrose, sodium bicarb, Lasix, Lokelma. * Resolved with above measures and diuresis. Spironolactone discontinued Hypertension/Diabetes * Nocturnal hypertension, likely steroid-induced; * Glucose monitored with Accu-Cheks, hypoglycemia protocol in place. * Continue Lisinopril 5mg, added Amlodipine 5mg and Isosorbide dinitrate 20mg bid * f/u with closely with PCP Pertinent Laboratory and Imaging * ABG:?Initial pO2 39.4, pCO2 49.6?63.5, pH 7.29?7.39, improved with therapy. * BNP:?27,500. * Troponin:?0.183 ? 0.211, attributed to type 2 IN (demand ischemia). * Creatinine:?2.01 on admission, improved to 1.28. * CT Chest:?Mild RLL aspiration pneumonia, RML collapse, severe emphysema, pulmonary hypertension. * Echo (08/06):?Severe RV dilation/dysfunction, severe RA enlargement, hyperdynamic LV, moderate pulmonic regurgitation, mild tricuspid regurgitation. Discharge Medications Continue: * Oxygen therapy (4L NC as needed, CPAP at night with O2 bleed) * Furosemide 40 mg PO daily * Digoxin 0.125 mg PO daily * Clopidogrel 75 mg PO daily * Montelukast 10 mg PO daily * Albuterol/ipratropium inhalers as scheduled * Fluticasone-vilanterol (Breo Ellipta) inhaler as scheduled * Gabapentin, metformin, lovastatin, mecobalamin, ondansetron as previously prescribed * Lisinopril 5mf daily * Amlodipine 5mg daily * Isosorbide dinitrate 20mg bid Hold: * Spironolactone (due to hyperkalemia) Discontinue: * Systemic steroids (completed course) New: * Outpatient event monitor for paroxysmal atrial fibrillation Discharge Condition * Stable, at baseline oxygen requirements, ambulating, tolerating diet, no acute distress. * Edema improved, no further arrhythmias, BP stable off steroids. * Afebrile, no new infectious symptoms, mentation intact. Follow-Up and Recommendations * Cardiology:?Outpatient follow-up with Dr. Weber ([facility]), event monitor for Afib, consider anticoagulation if recurrent. * Nephrology:?As needed if renal function does not normalize. * Primary Care:?For ongoing management of COPD, diabetes, hypertension, and CKD. * Pulmonology:?Consider for ongoing COPD and pulmonary hypertension management. * Smoking cessation:?Strongly advised. * Education:?Medication adherence, signs of decompensation (worsening dyspnea, edema, chest pain, palpitations, confusion), when to seek medical attention. * DVT prophylaxis:?Continue as indicated. Time Spent with Patient Time attestation: Total time spent providing and/or coordinating discharge services: DS: Data Data Completed and Pending Labs on day of discharge: Labs from last 24 hours 08/10/25 08/10/25 08/10/25 11:29 08:00 05:01 WBC 8.6 RBC 5.77 H Hgb 16.1 H Hct 53.5 H MCV 92.7 MCH 27.9 MCHC 30.1 L RDW 16.4 H Plt Count 137 L MPV 10.1 Immature Gran % (Auto) 0.6 H Neut % (Auto) 87.5 H Lymph % (Auto) 6.3 L Kern % (Auto) 5.5 Eos % (Auto) 0.0 Baso % (Auto) 0.1 L Lymph # (Auto) 0.54 L Kern # (Auto) 0.5 Eos # (Auto) 0.0 Baso # (Auto) 0.0 Abs Immat Gran (auto) 0.05 H Absolute Neuts (auto) 7.5 H Absolute Nucleated RBC 0.000 Nucleated RBC % 0.0 % Immature Plt Fraction 5.4 Sodium 139 Potassium 3.2 L Chloride 95 L Carbon Dioxide > 40 H Anion Gap BUN 53 H Creatinine 1.25 H Estim Creat Clear Calc 33 Estimated GFR 43 L Glucose 93 POC Capillary Glucose 117 H 78 Calcium 8.9 Magnesium 1.9 Total Bilirubin 1.2 AST 25 ALT 29 Alkaline Phosphatase 83 Total Protein 6.2 L Albumin 3.4 L 08/09/25 08/09/25 08/09/25 21:26 15:55 11:33 WBC RBC Hgb Hct MCV MCH MCHC RDW Plt Count MPV Immature Gran % (Auto) Neut % (Auto) Lymph % (Auto) Kern % (Auto) Eos % (Auto) Baso % (Auto) Lymph # (Auto) Kern # (Auto) Eos # (Auto) Baso # (Auto) Abs Immat Gran (auto) Absolute Neuts (auto) Absolute Nucleated RBC Nucleated RBC % % Immature Plt Fraction Sodium Potassium Chloride Carbon Dioxide Anion Gap BUN Creatinine Estim Creat Clear Calc Estimated GFR Glucose POC Capillary Glucose 209 H 180 H 175 H Calcium Magnesium Total Bilirubin AST ALT Alkaline Phosphatase Total Protein Albumin Discharge Plan Discharge Attending physician on discharge: Garret Reyes Consulting providers: Ulises Goff Discharging Clinician: Garret Reyes Anticipated Discharge Date/Time: 08/10/25 11:31 Patient Disposition: Home Activity: as tolerated Diet: as tolerated, heart healthy and diabetic Patient Instructions: Antibiotic Form, Clopidogrel (By mouth), Heart Failure (DC), How to Stop Smoking (DC) Patient Language: Turkmen Stand Alone Forms: General Discharge Information Follow-up/Referrals: Guy Brooks DO [Primary Care Provider, Family Practice] Referral Note: F/u with PCP in 3-5 days Ulises Goff MD [Physician, Cardiology] Referral Note: F/u with cardiology as instructed Discharge Medications: New amlodipine [Norvasc] 5 mg Tablet 5 mg PO DAILY 30 Days Qty: 30 1RF amoxicillin-pot clavulanate 875-125 mg tablet 1 tablet PO Q12H 5 Days Qty: 10 0RF furosemide 40 mg Tablet 40 mg PO DAILY 30 Days Qty: 30 1RF isosorbide mononitrate 20 mg tablet 20 mg PO BID 30 Days Qty: 60 1RF Rx Instructions: give doses 7 hrs apart Continued mecobalamin (vitamin B12) [B12 Active] 1,000 mcg tablet,chewable 1,000 mcg PO DAILY ipratropium bromide 18 mcg/actuation aerosol 1 puff inhalation BID albuterol sulfate [Ventolin HFA] 90 mcg/actuation HFA aerosol inhaler See Rx Instructions .ROUTE .COMPLEX Qty: 18 3RF Dose Instruction: 1 PUFF INHALATION EVERY 4 HOURS NEEDED FOR SHORTNESS OF BREATH OR WHEEZING Rx Instructions: 1 PUFF INHALATION EVERY 4 HOURS NEEDED FOR SHORTNESS OF BREATH OR WHEEZING montelukast 10 mg tablet See Rx Instructions .ROUTE .COMPLEX Qty: 90 1RF Dose Instruction: TAKE ONE TABLET BY MOUTH ONCE DAILY AT BEDTIME Rx Instructions: TAKE ONE TABLET BY MOUTH ONCE DAILY AT BEDTIME ondansetron HCl 4 mg tablet 4 mg PO Q8H PRN (Reason: nausea and vomiting) Qty: 20 0RF Atrovent HFA 17 mcg/actuation HFA aerosol inhaler See Rx Instructions .ROUTE .COMPLEX Qty: 12.9 2RF Dose Instruction: 1 PUFF BY MOUTH 4 TIMES A DAY Rx Instructions: 1 PUFF BY MOUTH 4 TIMES A DAY fluticasone furoate-vilanterol [Breo Ellipta] 200-25 mcg/dose blister with device See Rx Instructions .ROUTE .COMPLEX Qty: 60 3RF Dose Instruction: INHALE 1 PUFF BY MOUTH DAILY Rx Instructions: INHALE 1 PUFF BY MOUTH DAILY lovastatin 40 mg tablet See Rx Instructions .ROUTE .COMPLEX Qty: 90 1RF Dose Instruction: TAKE ONE TABLET BY MOUTH DAILY Rx Instructions: TAKE ONE TABLET BY MOUTH DAILY clopidogrel 75 mg tablet See Rx Instructions .ROUTE .COMPLEX Qty: 90 2RF Dose Instruction: TAKE ONE TABLET BY MOUTH DAILY Rx Instructions: TAKE ONE TABLET BY MOUTH DAILY digoxin 125 mcg (0.125 mg) tablet See Rx Instructions .ROUTE .COMPLEX Qty: 90 1RF Dose Instruction: TAKE ONE TABLET BY MOUTH DAILY Rx Instructions: TAKE ONE TABLET BY MOUTH DAILY gabapentin 300 mg capsule See Rx Instructions .ROUTE .COMPLEX Qty: 360 1RF Dose Instruction: TAKE 1 CAPSULE BY MOUTH 4 TIMES A DAY FOR 90 DAYS Rx Instructions: TAKE 1 CAPSULE BY MOUTH 4 TIMES A DAY FOR 90 DAYS metformin 1,000 mg tablet See Rx Instructions .ROUTE .COMPLEX Qty: 180 1RF Dose Instruction: TAKE ONE TABLET BY MOUTH TWICE A DAY Rx Instructions: TAKE ONE TABLET BY MOUTH TWICE A DAY lisinopril 5 mg tablet 5 mg PO DAILY Qty: 90 0RF Discontinued spironolactone 25 mg tablet See Rx Instructions .ROUTE .COMPLEX Qty: 90 2RF Dose Instruction: TAKE ONE TABLET BY MOUTH DAILY Rx Instructions: TAKE ONE TABLET BY MOUTH DAILY furosemide 20 mg tablet See Rx Instructions .ROUTE .COMPLEX Qty: 90 2RF Dose Instruction: TAKE ONE TABLET BY MOUTH DAILY IN THE MORNING Rx Instructions: TAKE ONE TABLET BY MOUTH DAILY IN THE MORNING Other Ambulatory Orders: OT Outpatient Eval and Treat (ONCE) Timeframe: 20250810 Location: Determined by Patient Ordered By: Garret Reyes PT Outpatient Eval and Treat (ONCE) Timeframe: 20250810 Location: Determined by Patient Ordered By: Garret Reyes Date of admission: 08/06/25 07:04 Primary Care Provider: Guy Brooks Admitting Provider: Amadou Delgado Attending physician on admission: Amadou Delgado Condition: Improved
[2025-08-10] MEDS: FUROSEMIDE 40 MG TABLET PO (12:31)
--- NOTE | 2025-08-10 14:54 | HOMEO2EVAL ---
Evaluation was performed at [facility] Home Oxygen Evaluation RC: Home Oxygen (O2) Evaluation Start: 08/10/25 12:00 Freq: ONCE Status: Discharge Protocol: RPE Activity Type Activity Date Activity User E-sign Co-sign Detail Recorded Client Recorded Date Recorded By Document 08/10/25 13:00 [email or web address] [email or web address] 08/10/25 14:54 DJO Document 08/10/25 13:05 [email or web address] [email or web address] 08/10/25 14:54 DJO Document 08/10/25 13:10 [email or web address] [email or web address] 08/10/25 14:54 DJO Document 08/10/25 13:15 [email or web address] [email or web address] 08/10/25 14:54 DJO Document 08/10/25 13:20 [email or web address] [email or web address] 08/10/25 14:54 DJO Document 08/10/25 13:54 [email or web address] [email or web address] 08/10/25 14:54 DJO 08/10/25 08/10/25 08/10/25 13:00 13:05 13:10 Home O2 Evaluation [Oxygen] -Test Phase Resting Resting Resting -Oxygen Delivery Room Air Nasal Cannula Nasal Cannula -Oxygen Flow Rate (L/min) 1 2 [Pulse Oximetry] -Pulse Oximetry (90-100 %) 85 L 86 L 88 L [Pulse Rate] -Pulse Rate (60-100 beats/min) 57 L 56 L 55 L [Evaluation] -Activity Tolerance [Charges] -Evaluation Charges O2 Evaluation by Pulmonary 08/10/25 08/10/25 08/10/25 13:15 13:20 13:54 Home O2 Evaluation [Oxygen] -Test Phase Exercise Exercise Exercise -Oxygen Delivery Nasal Cannula Nasal Cannula Nasal Cannula -Oxygen Flow Rate (L/min) 3 3 4 [Pulse Oximetry] -Pulse Oximetry (90-100 %) 91 88 L 90 [Pulse Rate] -Pulse Rate (60-100 beats/min) 56 L 72 77 [Evaluation] -Activity Tolerance Good [Charges] -Evaluation Charges
--- NOTE | 2025-08-10 14:55 | PCRCNOTE ---
HOME O2 EVAL COMPLETE, NO CHANGES FROM PREVIOUS SETTINGS. 3L REST AND 4L ACTIVITY. PT. HAS TANK IN ROOM FOR DISCHARGE.
== END 2025-08-10 14:27 | disposition home or self-care (01) | DRG 871 ==
LOC: ANHIMU 08-06 10:32 → ANH3MED 08-07 16:46
PROVIDERS: Internal Medicine; Nurse Practitioner Gerontology; Student in an Organized Health Care Education/Training Program; Admitting Provider General Practice; PCP Family Medicine; Visit Provider Internal Medicine
DX: A41.9 Sepsis, unspecified organism (principal); I21.A1 Myocardial infarction type 2; J18.9 Pneumonia, unspecified organism; J69.0 Pneumonitis due to inhalation of food and vomit; J96.21 Acute and chronic respiratory failure with hypoxia; J44.0 Chronic obstructive pulmonary disease with (acute) lower respiratory infection; N17.9 Acute kidney failure, unspecified; J44.1 Chronic obstructive pulmonary disease with (acute) exacerbation; I13.0 Hypertensive heart and chronic kidney disease with heart failure and stage 1 through stage 4 chronic kidney disease, or unspecified chronic kidney disease; N39.0 Urinary tract infection, site not specified; R65.20 Severe sepsis without septic shock; T17.990A Other foreign object in respiratory tract, part unspecified in causing asphyxiation, initial encounter; E11.22 Type 2 diabetes mellitus with diabetic chronic kidney disease; E87.5 Hyperkalemia; I27.81 Cor pulmonale (chronic); I48.0 Paroxysmal atrial fibrillation; N18.31 Chronic kidney disease, stage 3a; L30.9 Dermatitis, unspecified; I50.810 Right heart failure, unspecified; K21.9 Gastro-esophageal reflux disease without esophagitis; F17.210 Nicotine dependence, cigarettes, uncomplicated; Z66 Do not resuscitate; Z99.81 Dependence on supplemental oxygen; Z86.73 Personal history of transient ischemic attack (TIA), and cerebral infarction without residual deficits
CPT/HCPCS: 36415; 36600; 71045; 80048; 80053; 82805; 82948; 83605; 83735; 84100; 84132; 84145; 84484; 85018; 85025; 85027; 85055; 87641; 92610; 93005; 94002; 94003; 94618; 94640; 97162; 97166; A9270; C8929; G0378; J0360; J0612; J0616; J1650; J1815; J1938; J2543; J2919; J3475; J7040; Q9957